=== PATIENT | female | born 1945 | race Caucasian/White ===

== ENCOUNTER 2017-08-14 19:14 | Inpatient (IN) | payer MEDICARE, BC ==
[2017-08-14] MEDS ORDERED: Sodium Chloride 0.9% 10 ML Syringe FLUSH PRN (19:29)
[2017-08-14] MEDS ORDERED: methylPREDNISolone Sodium Succinate 125 MG/2 ML SDV IV ONE (19:30)
[2017-08-14] MEDS ORDERED: Albuterol/Ipratropium 3.0-0.5 MG/3 ML Neb Soln NEB ONE (19:30)
[2017-08-14 20:34] LABS: CHLORIDE,CL 100 mmol/L (98-107); SODIUM,NA 139 mmol/L (136-145)
[2017-08-14] MEDS ORDERED: Iopamidol 612 MG/ML 100 ML Bottle IVPUSH ONE (20:55)
[2017-08-14] MEDS ORDERED: Albuterol/Ipratropium 3.0-0.5 MG/3 ML Neb Soln NEB SCH (23:00)
[2017-08-14] MEDS ORDERED: cloNIDine 0.1 MG Tab PO SCH (23:02)
[2017-08-14] MEDS ORDERED: RAMIPRIL 10 MG PO SCH (23:03)
[2017-08-14] MEDS ORDERED: Non-Formulary Medication 1 Each (Saxagliptin Hcl [Onglyza] 5 MG) PO SCH (23:03)
[2017-08-14] MEDS ORDERED: NIFEdipine 30 MG Tab.ER PO SCH (23:05)
--- NOTE | 2017-08-14 23:08 | PCM.HP ---
H&P History of Present Illness - General Date of Service: 08/14/17 Admit Problem/Dx: Admission Diagnosis/Problem Admission Diagnosis/Problem COPD with acute lower respiratory infection Source of Information: Patient History Limitations: Reports: No Limitations - History of Present Illness Initial Comments - Free Text/Narative: Mrs. Jacobs is a 72 yo female who presented to the ER for evaluation of chest pain x 3 days. Pain described as a pressure sensation on the left chest. No radiation. No specific exacerbating or alleviating factors. Has been happening intermittently on a random basis but has been more persistent and noticeable throughout the day today. She has chronic shortness of breath and cough related to her COPD but denies any increase in either recently. No fever or chills. Has had pneumonia in the past and these symptoms are not really similar to that. She has been fatigued but otherwise does not feel ill. Has not been using her albuterol inhaler more recently; no specific home cares tried. She denies any nausea or vomiting. No other acute symptoms. She is already feeling much better since she received steroids and a neb treatment in the ER and denies any current chest pain. Left chest Pain Score (Numeric/FACES): 5 - Related Data Allergies/Adverse Reactions: Allergies Allergy/AdvReac Type Severity Reaction Status Date / Time glipizide Allergy Itching Verified 06/17/16 08:50 Home Medications: Home Meds Albuterol [Proventil HFA] 2 puff INH Q4H PRN 05/05/16 [History] Htazx-9-Rkuqsmmxxt Inhibitor [Aralast Skin Care Consultant] 8,000 mg IV Q14D 05/05/16 [History] Hydrochlorothiazide 25 g PO DAILY 05/05/16 [History] NIFEdipine [Adalat cc] 60 mg PO DAILY 05/05/16 [History] Ramipril [Altace] 10 mg PO DAILY 05/05/16 [History] Saxagliptin HCl [Onglyza] 5 mg PO DAILY 05/05/16 [History] Simvastatin [Zocor] 10 mg PO BEDTIME 05/05/16 [History] Tiotropium [Spiriva HandiHaler] 1 cap PO DAILY 05/05/16 [History] cloNIDine HCl [Catapres] 0.2 mg PO DAILY 05/05/16 [History] metFORMIN [Glucophage] 850 mg PO BID 05/05/16 [History] Albuterol [Proventil Neb Soln] 2.5 mg INH BID 08/14/17 [History] Knehb-4-Asaccevrsp Inhibitor [Glassia] 1 gm IV Q7D 08/14/17 [History] Fluticasone/Vilanterol [Breo Ellipta 200-25 Mcg INH] 1 each IH DAILY 08/14/17 [ History] Past Medical History HEENT History: Reports: Other (See Below) Other HEENT History: conjunctival hemorrhage Cardiovascular History: Reports: High Cholesterol, Hypertension, SOB on Exertion , Other (See Below) Other Cardiovascular History: varicose veins Respiratory History: Reports: COPD, Other (See Below) Other Respiratory History: alpha-1 anti-trypsin deficiency, panlobular emphysema , pulmonary nodules, bronchiectasis Gastrointestinal History: Reports: Diverticulosis 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 herpes zoster. compression fx 12th thoracic vertebra Endocrine/Metabolic History: Reports: Diabetes, Type II, Osteoporosis Hematologic History: Reports: None Immunologic History: Reports: None Oncologic (Cancer) History: Reports: None Dermatologic History: Reports: None - Infectious Disease History Infectious Disease History: Reports: None - Past Surgical History HEENT Surgical History: Reports: Cataract Surgery, Other (See Below) Other HEENT Surgeries/Procedures: bilateral blepharoplasty Social & Family History - Family History Cardiac: Reports: Heart Failure Neurological: Reports: CVA - Tobacco Use Smoking Status *Q: Never Smoker Second Hand Smoke Exposure: No - Caffeine Use Caffeine Use: Reports: Coffee - Alcohol Use Alcohol Use History: No Alcohol Use in Last Twelve Months: Yes Alcohol Use Frequency: Rarely - Recreational Drug Use Recreational Drug Use: No - Living Situation & Occupation Living situation: Reports: , with Significant Other 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[employer]) H&P Review of Systems - Review of Systems: Review Of Systems: See Below General: Reports: No Symptoms HEENT: Reports: No Symptoms Pulmonary: Reports: Shortness of Breath, Cough Cardiovascular: Reports: Chest Pain Gastrointestinal: Reports: No Symptoms Genitourinary: Reports: No Symptoms Musculoskeletal: Reports: No Symptoms Skin: Reports: No Symptoms Neurological: Reports: No Symptoms Exam - Exam Exam: See Below - Vital Signs Vital Signs: Last Vital Signs Temp 36.9 C 08/14/17 22:48 Pulse 96 08/14/17 22:48 Resp 20 08/14/17 22:48 BP 153/83 H 08/14/17 22:48 Pulse Ox 90 L 08/14/17 22:48 Weight: 68.039 kg - Exam General: Alert, Cooperative HEENT: Conjunctiva Clear, Mucosa Moist & Bloomer, Posterior Pharynx Clear, Pupils Equal, Pupils Reactive Neck: Supple, Trachea Midline. No: Lymphadenopathy, Thyromegaly Lungs: Normal Respiratory Effort, Crackles (R>L lower lobes, which patient states is usual for her) Cardiovascular: Regular Rate, Regular Rhythm, Normal S1, Normal S2 GI/Abdominal Exam: Normal Bowel Sounds, Soft, Non-Tender, No Organomegaly, No Distention, No Mass Extremities: Non-Tender, No Pedal Edema, Normal Capillary Refill Peripheral Pulses: 2+: Radial (L), Radial (R) Skin: Warm, Dry, Intact - Patient Data Lab Results Last 24 hrs: Laboratory Results - last 24 hr 08/14/17 08/14/17 08/14/17 Range/Units 19:35 19:35 19:35 WBC 11.2 H (4.0-10.0) x10^3/uL RBC 4.64 (4.00-5.50) x10^6/uL Hgb 14.1 (12.0-16.0) g/dL Hct 42.3 (33.0-47.0) % MCV 91.2 (78.0-93.0) fL MCH 30.4 (26.0-32.0) pg MCHC 33.3 (32.0-36.0) g/dL RDW Coeff of Jose 13.2 (10.0-15.0) % Plt Count 281 (130-400) x10^3/uL Neut % (Auto) 72.1 (50.0-80.0) % Lymph % (Auto) 15.4 L (25.0-50.0) % [place] % (Auto) 10.5 (2.0-11.0) % Eos % (Auto) 1.8 (0.0-4.0) % Baso % (Auto) 0.2 (0.2-1.2) % PT 10.4 (9.6-11.4) SEC INR 1.0 L (2.0-3.5) D-Dimer, Quantitative 0.91 H (<=0.58) mg/LFEU Sodium 139 (136-145) mmol/L Potassium 3.8 (3.5-5.1) mmol/L Chloride 100 (98-107) mmol/L Carbon Dioxide 29 (21-32) mmol/L Anion Gap 13.8 (10-20) mmol/L BUN 24 H (7-18) mg/dL Creatinine 0.9 (0.55-1.02) mg/dL Est Cr Clr Drug Dosing 49.51 mL/min Estimated GFR (MDRD) > 60 Glucose 107 H (74-106) mg/dL Lactic Acid (0.4-2.0) mmol/L Calcium 9.4 (8.5-10.1) mg/dL Corrected Calcium 9.96 (8.5-10.1) mg/dL Phosphorus 3.8 (2.6-4.7) mg/dL Magnesium 1.5 L (1.8-2.4) mg/dL Total Bilirubin 0.5 (0.2-1.0) mg/dL AST 13 L (15-37) U/L ALT 18 (14-59) U/L Alkaline Phosphatase 108 (46-116) U/L Troponin I < 0.017 (<=0.056) ng/mL C-Reactive Protein 1.1 H (<=0.9) mg/dL NT-Pro-B Natriuret Pep 85 (<=125) pg/mL Total Protein 7.8 (6.4-8.2) g/dL Albumin 3.3 L (3.4-5.0) g/dL Globulin 4.5 Albumin/Globulin Ratio 0.73 /16/18 Range/Units 19:35 WBC (4.0-10.0) x10^3/uL RBC (4.00-5.50) x10^6/uL Hgb (12.0-16.0) g/dL Hct (33.0-47.0) % MCV (78.0-93.0) fL MCH (26.0-32.0) pg MCHC (32.0-36.0) g/dL RDW Coeff of Jose (10.0-15.0) % Plt Count (130-400) x10^3/uL Neut % (Auto) (50.0-80.0) % Lymph % (Auto) (25.0-50.0) % [place] % (Auto) (2.0-11.0) % Eos % (Auto) (0.0-4.0) % Baso % (Auto) (0.2-1.2) % PT (9.6-11.4) SEC INR (2.0-3.5) D-Dimer, Quantitative (<=0.58) mg/LFEU Sodium (136-145) mmol/L Potassium (3.5-5.1) mmol/L Chloride (98-107) mmol/L Carbon Dioxide (21-32) mmol/L Anion Gap (10-20) mmol/L BUN (7-18) mg/dL Creatinine (0.55-1.02) mg/dL Est Cr Clr Drug Dosing mL/min Estimated GFR (MDRD) Glucose (74-106) mg/dL Lactic Acid 0.8 (0.4-2.0) mmol/L Calcium (8.5-10.1) mg/dL Corrected Calcium (8.5-10.1) mg/dL Phosphorus (2.6-4.7) mg/dL Magnesium (1.8-2.4) mg/dL Total Bilirubin (0.2-1.0) mg/dL AST (15-37) U/L ALT (14-59) U/L Alkaline Phosphatase (46-116) U/L Troponin I (<=0.056) ng/mL C-Reactive Protein (<=0.9) mg/dL NT-Pro-B Natriuret Pep (<=125) pg/mL Total Protein (6.4-8.2) g/dL Albumin (3.4-5.0) g/dL Globulin Albumin/Globulin Ratio Result Diagrams: 08/14/17 19:35 08/14/17 19:35 Isai Results Last 24 hrs: Microbiology 08/14/17 20:33 Anaerobic Blood Culture - Final Blood - Venous - Lab Draw 08/14/17 20:24 Anaerobic Blood Culture - Final Blood - Venous - Problem List (1) COPD exacerbation SNOMED Code(s): 531609097 ICD Code: J44.1 - CHRONIC OBSTRUCTIVE PULMONARY DISEASE W (ACUTE) EXACERBATION Status: Acute Current Visit: Yes Problem Details: - Symptoms are most likely secondary to COPD exacerbation given history of severe COPD and improvement with nebs and steroids. - Troponin was negative and EKG unremarkable, effectively ruling out coronary ischemia after 3 days of symptoms. Patient does not have any history to suggest CHF. D-dimer high but PE ruled out with CTA. No anemia nor significant electrolyte abnormalities. - Question of pneumonia on CT scan but patient's history is not consistent with this. Discussed holding off on antibiotics and seeing how she does overnight with repeat labs in the morning; patient in agreement with this. - Will start prednisone burst in the am; parenteral steroids given in the ER. - DuoNebs scheduled q4 hours until 24 hours from initial steroid dosing, will then transition to PRN. - If WBC up or lung exam changed in the am, will consider starting antibiotics. (2) Qqjpv-3-zvcvgwipyej deficiency SNOMED Code(s): 89636490 ICD Code: E88.01 - [id number] DEFICIENCY Status: Chronic Current Visit: Yes Problem Details: - This is the cause for her COPD. - She gets her infusions on Mondays. Anticipate this can be done still later in the day on Wednesday or deferred until Wednesday. (3) Respiratory failure with hypoxia SNOMED Code(s): 34430683429348734 ICD Code: J96.91 - RESPIRATORY FAILURE, UNSPECIFIED WITH HYPOXIA Status: Acute Current Visit: Yes Problem Details: - Patient requiring 4L to maintain saturations instead of her usual 2L. - Secondary to above. Same differential considered as described above. - Prednisone and DuoNebs. - Will wean oxygen as able. Qualifiers: Chronicity: acute on chronic Qualified Code(s): J96.21 - Acute and chronic respiratory failure with hypoxia (4) Hypertension SNOMED Code(s): 39264360 ICD Code: I10 - ESSENTIAL (PRIMARY) HYPERTENSION Status: Chronic Current Visit: Yes Problem Details: - BP up in the ER but improved upon arrival to the floor. - Continue home medications per usual schedule. Qualifiers: Hypertension type: essential hypertension Qualified Code(s): I10 - Essential (primary) hypertension (5) Hyperlipidemia SNOMED Code(s): 71597143 ICD Code: E78.5 - HYPERLIPIDEMIA, UNSPECIFIED Status: Chronic Current Visit: Yes Problem Details: - Continue simvastatin. Qualifiers: Hyperlipidemia type: unspecified Qualified Code(s): E78.5 - Hyperlipidemia , unspecified (6) Diabetes SNOMED Code(s): 66181051 ICD Code: E11.9 - TYPE 2 DIABETES MELLITUS WITHOUT COMPLICATIONS Status: Chronic Current Visit: Yes Problem Details: - Hold metformin as she got contrast this pm. - Will continue saxagliptin if available. Otherwise, will hold this as well. - QID glucoses. Will assess need for insulin to replace held home medications. Qualifiers: Diabetes mellitus type: type 2 Diabetes mellitus mcfp insulin use: without mcfp use Diabetes mellitus complication status: without complication Qualified Code(s): E11.9 - Type 2 diabetes mellitus without complications Problem List Initiated/Reviewed/Updated: Yes Orders Last 24hrs: Active Orders 24 hr Category Date Time Status Patient Status [ADT] Routine ADT 08/14/17 22:08 Active EKG Documentation Completion [RC] STAT Care 08/14/17 19:29 Active Notify Provider Vital Signs [RC] ASDIRECTED Care 08/14/17 22:57 Ordered Oxygen Therapy [RC] PRN Care 08/14/17 19:30 Active Oxygen Therapy [RC] PRN Care 08/14/17 22:56 Ordered RT Aerosol Therapy [RC] ASDIRECTED Care 08/14/17 19:31 Active RT Aerosol Therapy [RC] ASDIRECTED Care 08/14/17 23:01 Ordered Up With Assistance [RC] ASDIRECTED Care 08/14/17 22:56 Ordered VTE/DVT Education [RC] PER UNIT ROUTINE Care 08/14/17 22:56 Ordered Vital Signs [RC] Q4H Care 08/14/17 22:56 Ordered Regular Diet [DIET] Diet 08/14/17 Breakfast Ordered Chest 2V [CR] Stat Exams 08/14/17 19:29 Taken PE Chest [Ang Chest] [CT] Stat Exams 08/14/17 20:39 Taken BASIC METABOLIC PANEL,BMP [CHEM] AM Lab 08/15/17 05:11 Ordered C-REACTIVE PROTEIN [CHEM] AM Lab 08/15/17 05:11 Ordered CBC WITH AUTO DIFF [HEME] AM Lab 08/15/17 05:11 Ordered CULTURE BLOOD [BC] Stat Lab 08/14/17 20:24 Results CULTURE BLOOD [] Stat Lab 08/14/17 20:33 Results Albuterol/Ipratropium [DuoNeb 3.0-0.5 MG/3 ML] Med 08/14/17 23:15 Ordered 3 ml NEB Q4H Enoxaparin [Lovenox] Med 08/15/17 08:00 Ordered 40 mg SUBCUT DAILY Hydrochlorothiazide Med 08/15/17 08:00 Ordered 25,000 mg PO DAILY NIFEdipine [Adalat cc] Med 08/14/17 23:05 Ordered 60 mg PO BEDTIME Ramipril [Altace] Med 08/14/17 23:03 Ordered 10 mg PO BEDTIME Saxagliptin HCl [Onglyza] Med 08/14/17 23:03 Ordered 5 mg PO BEDTIME Simvastatin [Zocor] Med 08/15/17 20:00 Ordered 10 mg PO BEDTIME Sodium Chloride 0.9% [Saline Flush] Med 08/14/17 19:29 Active 10 ml FLUSH ASDIRECTED PRN cloNIDine HCl [Catapres] Med 08/14/17 23:02 Ordered 0.2 mg PO BEDTIME predniSONE Med 08/15/17 08:00 Ordered 40 mg PO WITHBREAKFAST Blood Culture x2 Reflex Set [OM.PC] Stat Oth 08/14/17 19:29 Ordered Peripheral IV Insertion Adult [OM.PC] Routine Oth 08/14/17 19:29 Ordered Resuscitation Status Routine Resus Stat 08/14/17 22:56 Ordered Medication Orders Albuterol/Ipratropium (Duoneb 3.0-0.5 Mg/3 Ml) 3 ml NEB Q4H GALINDO Enoxaparin Sodium (Lovenox) 40 mg SUBCUT DAILY GALINDO Hydrochlorothiazide (Hydrochlorothiazide) 25,000 mg PO DAILY GALINDO Non-Formulary Medication (Clonidine Hcl [Catapres]) 0.2 mg PO BEDTIME GALINDO Non-Formulary Medication (Nifedipine [Adalat Cc]) 60 mg PO BEDTIME GALINDO Non-Formulary Medication (Ramipril [Altace]) 10 mg PO BEDTIME GALINDO Non-Formulary Medication (Saxagliptin Hcl [Onglyza]) 5 mg PO BEDTIME GALINDO Prednisone (Prednisone) 40 mg PO WITHBREAKFAST GALINDO Simvastatin (Zocor) 10 mg PO BEDTIME GALINDO Sodium Chloride (Saline Flush) 10 ml FLUSH ASDIRECTED PRN PRN Reason: Keep Vein Open Last Admin: 08/14/17 19:44 Dose: 10 ml Assessment/Plan Comment:: 72 yo female admitted with acute on chronic respiratory failure secondary to COPD exacerbation after presenting with chest pain. See details under problems above. Will start prednisone burst in the am and do DuoNebs scheduled q4 hours for now. Holding off on antibiotics and will reassess in the am. She will get LR @ 100 cc/hr x [address] contrast through. Home medications continued except for metformin and inhalers (replaced with nebs or systemic therapy). She meets acute criteria due to the level of monitoring and intervention but also as it is presumed she will remain admitted for 2 midnights. She wishes to be full code. She will be on lovenox for VTE prophylaxis.
[2017-08-14] MEDS ORDERED: Lactated Ringers 500 ML IV SCH (23:15)
[2017-08-14] MEDS ORDERED: Lisinopril 20 MG Tab PO SCH (23:15)
[2017-08-14] MEDS: Albuterol/Ipratropium 3.0-0.5 MG/3 ML Neb Soln NEB SCH (23:33)
[2017-08-14] MEDS ORDERED: Simvastatin 10 MG Tab PO SCH (23:45)
[2017-08-15] MEDS: Albuterol/Ipratropium 3.0-0.5 MG/3 ML Neb Soln NEB SCH ×3 (03:06→11:21)
[2017-08-15] MEDS ORDERED: Tiotropium Inhaler 18 MCG Inhalation Powder Cap Kit of 5 INH SCH (08:00)
[2017-08-15] MEDS ORDERED: Enoxaparin 40 MG/0.4 ML Syringe SUBCUT SCH (08:00)
[2017-08-15] MEDS ORDERED: predniSONE 20 MG Tab PO SCH (08:00)
[2017-08-15] MEDS ORDERED: Hydrochlorothiazide 25 MG Tab PO SCH ×2 (08:00)
--- NOTE | 2017-08-15 09:33 | PCM.PN ---
- General Info Date of Service: 08/15/17 - Patient Data Vitals - Most Recent: Last Vital Signs Temp 36.1 C 08/15/17 06:00 Pulse 77 08/15/17 06:00 Resp 20 08/15/17 06:00 BP 109/55 L 08/15/17 06:00 Pulse Ox 96 08/15/17 07:26 Weight - Most Recent: 68.039 kg I&O - Last 24 Hours: Intake & Output 08/14/17 08/15/17 08/15/17 22:59 06:59 14:59 Intake Total 280 600 Output Total 300 1000 Balance -20 -400 Lab Results Last 24 Hours: Laboratory Results - last 24 hr 08/14/17 08/14/17 08/14/17 Range/Units 19:35 19:35 19:35 WBC 11.2 H (4.0-10.0) x10^3/uL RBC 4.64 (4.00-5.50) x10^6/uL Hgb 14.1 (12.0-16.0) g/dL Hct 42.3 (33.0-47.0) % MCV 91.2 (78.0-93.0) fL MCH 30.4 (26.0-32.0) pg MCHC 33.3 (32.0-36.0) g/dL RDW Coeff of Jose 13.2 (10.0-15.0) % Plt Count 281 (130-400) x10^3/uL Neut % (Auto) 72.1 (50.0-80.0) % Lymph % (Auto) 15.4 L (25.0-50.0) % Mathews % (Auto) 10.5 (2.0-11.0) % Eos % (Auto) 1.8 (0.0-4.0) % Baso % (Auto) 0.2 (0.2-1.2) % PT 10.4 (9.6-11.4) SEC INR 1.0 L (2.0-3.5) D-Dimer, Quantitative 0.91 H (<=0.58) mg/LFEU Sodium 139 (136-145) mmol/L Potassium 3.8 (3.5-5.1) mmol/L Chloride 100 (98-107) mmol/L Carbon Dioxide 29 (21-32) mmol/L Anion Gap 13.8 (10-20) mmol/L BUN 24 H (7-18) mg/dL Creatinine 0.9 (0.55-1.02) mg/dL Est Cr Clr Drug Dosing 49.51 mL/min Estimated GFR (MDRD) > 60 Glucose 107 H (74-106) mg/dL POC Glucose (74-106) mg/dL Lactic Acid (0.4-2.0) mmol/L Calcium 9.4 (8.5-10.1) mg/dL Corrected Calcium 9.96 (8.5-10.1) mg/dL Phosphorus 3.8 (2.6-4.7) mg/dL Magnesium 1.5 L (1.8-2.4) mg/dL Total Bilirubin 0.5 (0.2-1.0) mg/dL AST 13 L (15-37) U/L ALT 18 (14-59) U/L Alkaline Phosphatase 108 (46-116) U/L Troponin I < 0.017 (<=0.056) ng/mL C-Reactive Protein 1.1 H (<=0.9) mg/dL NT-Pro-B Natriuret Pep 85 (<=125) pg/mL Total Protein 7.8 (6.4-8.2) g/dL Albumin 3.3 L (3.4-5.0) g/dL Globulin 4.5 Albumin/Globulin Ratio 0.73 08/14/1718 18 Range/Units 19:35 06:03 08:52 WBC 9.1 (4.0-10.0) x10^3/uL RBC 4.33 (4.00-5.50) x10^6/uL Hgb 13.2 (12.0-16.0) g/dL Hct 39.6 (33.0-47.0) % MCV 91.5 (78.0-93.0) fL MCH 30.5 (26.0-32.0) pg MCHC 33.3 (32.0-36.0) g/dL RDW Coeff of Jose 13.1 (10.0-15.0) % Plt Count 261 (130-400) x10^3/uL Neut % (Auto) 86.0 H (50.0-80.0) % Lymph % (Auto) 6.9 L (25.0-50.0) % Mathews % (Auto) 7.0 (2.0-11.0) % Eos % (Auto) 0.0 (0.0-4.0) % Baso % (Auto) 0.1 L (0.2-1.2) % PT (9.6-11.4) SEC INR (2.0-3.5) D-Dimer, Quantitative (<=0.58) mg/LFEU Sodium (136-145) mmol/L Potassium (3.5-5.1) mmol/L Chloride (98-107) mmol/L Carbon Dioxide (21-32) mmol/L Anion Gap (10-20) mmol/L BUN (7-18) mg/dL Creatinine (0.55-1.02) mg/dL Est Cr Clr Drug Dosing mL/min Estimated GFR (MDRD) Glucose (74-106) mg/dL POC Glucose 183 H (74-106) mg/dL Lactic Acid 0.8 (0.4-2.0) mmol/L Calcium (8.5-10.1) mg/dL Corrected Calcium (8.5-10.1) mg/dL Phosphorus (2.6-4.7) mg/dL Magnesium (1.8-2.4) mg/dL Total Bilirubin (0.2-1.0) mg/dL AST (15-37) U/L ALT (14-59) U/L Alkaline Phosphatase (46-116) U/L Troponin I (<=0.056) ng/mL C-Reactive Protein (<=0.9) mg/dL NT-Pro-B Natriuret Pep (<=125) pg/mL Total Protein (6.4-8.2) g/dL Albumin (3.4-5.0) g/dL Globulin Albumin/Globulin Ratio 08/15/17 Range/Units 08:52 WBC (4.0-10.0) x10^3/uL RBC (4.00-5.50) x10^6/uL Hgb (12.0-16.0) g/dL Hct (33.0-47.0) % MCV (78.0-93.0) fL MCH (26.0-32.0) pg MCHC (32.0-36.0) g/dL RDW Coeff of Jose (10.0-15.0) % Plt Count (130-400) x10^3/uL Neut % (Auto) (50.0-80.0) % Lymph % (Auto) (25.0-50.0) % Mathews % (Auto) (2.0-11.0) % Eos % (Auto) (0.0-4.0) % Baso % (Auto) (0.2-1.2) % PT (9.6-11.4) SEC INR (2.0-3.5) D-Dimer, Quantitative (<=0.58) mg/LFEU Sodium 136 (136-145) mmol/L Potassium 4.1 (3.5-5.1) mmol/L Chloride 99 (98-107) mmol/L Carbon Dioxide 26 (21-32) mmol/L Anion Gap 15.1 (10-20) mmol/L BUN 23 H (7-18) mg/dL Creatinine 1.2 H (0.55-1.02) mg/dL Est Cr Clr Drug Dosing 37.13 mL/min Estimated GFR (MDRD) 44 Glucose 303 H (74-106) mg/dL POC Glucose (74-106) mg/dL Lactic Acid (0.4-2.0) mmol/L Calcium 9.0 (8.5-10.1) mg/dL Corrected Calcium (8.5-10.1) mg/dL Phosphorus (2.6-4.7) mg/dL Magnesium (1.8-2.4) mg/dL Total Bilirubin (0.2-1.0) mg/dL AST (15-37) U/L ALT (14-59) U/L Alkaline Phosphatase (46-116) U/L Troponin I (<=0.056) ng/mL C-Reactive Protein 0.9 (<=0.9) mg/dL NT-Pro-B Natriuret Pep (<=125) pg/mL Total Protein (6.4-8.2) g/dL Albumin (3.4-5.0) g/dL Globulin Albumin/Globulin Ratio Isai Results Last 24 Hours: Microbiology 08/14/17 20:33 Anaerobic Blood Culture - Final Blood - Venous - Lab Draw 08/14/17 20:24 Anaerobic Blood Culture - Final Blood - Venous Med Orders - Current: Current Medications Albuterol/Ipratropium (Duoneb 3.0-0.5 Mg/3 Ml) 3 ml NEB Q4HRRT [facility] Last Admin: 08/15/17 07:21 Dose: 3 ml Clonidine HCl (Catapres) 0.2 mg PO BEDTIME [facility] Last Admin: 08/14/17 23:34 Dose: 0.2 mg Enoxaparin Sodium (Lovenox) 40 mg SUBCUT DAILY [facility] Last Admin: 08/15/17 08:11 Dose: 40 mg Hydrochlorothiazide (Hydrochlorothiazide) 25 mg PO DAILY [facility] Last Admin: 08/15/17 08:11 Dose: 25 mg Lisinopril (Prinivil) 20 mg PO BEDTIME [facility] Last Admin: 08/14/17 23:34 Dose: 20 mg Nifedipine (Procardia Xl) 60 mg PO BEDTIME [facility] Last Admin: 08/14/17 23:41 Dose: 60 mg Prednisone (Prednisone) 40 mg PO WITHBREAKFAST [facility] Last Admin: 08/15/17 08:11 Dose: 40 mg Simvastatin (Zocor) 10 mg PO BEDTIME [facility] Last Admin: 08/15/17 03:06 Dose: 10 mg Sitagliptin Phosphate (Januvia) 100 mg PO BEDTIME [facility] Last Admin: 08/14/17 23:34 Dose: 100 mg Sodium Chloride (Saline Flush) 10 ml FLUSH ASDIRECTED PRN PRN Reason: Keep Vein Open Last Admin: 08/14/17 19:44 Dose: 10 ml Discontinued Medications Albuterol/Ipratropium (Duoneb 3.0-0.5 Mg/3 Ml) 3 ml NEB ONETIME ONE Stop: 08/14/17 19:31 Last Admin: 08/14/17 19:44 Dose: 3 ml Albuterol/Ipratropium (Duoneb 3.0-0.5 Mg/3 Ml) 3 ml NEB Q4HRRT [facility] Last Admin: 08/15/17 02:08 Dose: Not Given Hydrochlorothiazide (Hydrochlorothiazide) 25,000 mg PO DAILY [facility] Lactated Ringer's (Ringers, Lactated) 500 mls @ 100 mls/hr IV ASDIRECTED [facility] Stop: 06/17/18 04:16 Last Admin: 08/14/17 23:24 Dose: 100 mls/hr Iopamidol (Isovue-300 (61%)) 100 ml IVPUSH ONETIME ONE Stop: 08/14/17 20:56 Last Admin: 08/14/17 21:06 Dose: 100 ml Methylprednisolone Sodium Succinate (Solu-Medrol) 125 mg IV ONETIME ONE Stop: 08/14/17 19:31 Last Admin: 08/14/17 19:44 Dose: 125 mg Simvastatin (Zocor) 10 mg PO BEDTIME [facility] Tiotropium [place] (Spiriva Handihaler) mcg INH DAILY [facility] - Problem List & Annotations (1) COPD exacerbation SNOMED Code(s): 688345259 Code(s): J44.1 - CHRONIC OBSTRUCTIVE PULMONARY DISEASE W (ACUTE) EXACERBATION Status: Acute Current Visit: Yes Annotation/Comment:: - Symptoms are most likely secondary to COPD exacerbation given history of severe COPD and improvement with nebs and steroids. - Troponin was negative and EKG unremarkable, effectively ruling out coronary ischemia after 3 days of symptoms. Patient does not have any history to suggest CHF. D-dimer high but PE ruled out with CTA. No anemia nor significant electrolyte abnormalities. - Question of pneumonia on CT scan but patient's history is not consistent with this. Discussed holding off on antibiotics and seeing how she does overnight with repeat labs in the morning; patient in agreement with this. - Will start prednisone burst in the am; parenteral steroids given in the ER. - DuoNebs scheduled q4 hours until 24 hours from initial steroid dosing, will then transition to PRN. - If WBC up or lung exam changed in the am, will consider starting antibiotics. (2) Mgyjv-[id number] deficiency SNOMED Code(s): 58364529 Code(s): E88.01 - [id number] DEFICIENCY Status: Chronic Current Visit: Yes Annotation/Comment:: - This is the cause for her COPD. - She gets her infusions on Mondays. Anticipate this can be done still later in the day on Wednesday or deferred until Wednesday. (3) Respiratory failure with hypoxia SNOMED Code(s): 78788882641087241 Code(s): J96.91 - RESPIRATORY FAILURE, UNSPECIFIED WITH HYPOXIA Status: Acute Current Visit: Yes Qualifiers: Chronicity: acute on chronic Qualified Code(s): J96.21 - Acute and chronic respiratory failure with hypoxia Annotation/Comment:: - Patient requiring 4L to maintain saturations instead of her usual 2L. - Secondary to above. Same differential considered as described above. - Prednisone and DuoNebs. - Will wean oxygen as able. (4) Hypertension SNOMED Code(s): 24858293 Code(s): I10 - ESSENTIAL (PRIMARY) HYPERTENSION Status: Chronic Current Visit: Yes Qualifiers: Hypertension type: essential hypertension Qualified Code(s): I10 - Essential (primary) hypertension Annotation/Comment:: - BP up in the ER but improved upon arrival to the floor. - Continue home medications per usual schedule. (5) Hyperlipidemia SNOMED Code(s): 09603366 Code(s): E78.5 - HYPERLIPIDEMIA, UNSPECIFIED Status: Chronic Current Visit: Yes Qualifiers: Hyperlipidemia type: unspecified Qualified Code(s): E78.5 - Hyperlipidemia , unspecified Annotation/Comment:: - Continue simvastatin. (6) Diabetes SNOMED Code(s): 90831250 Code(s): E11.9 - TYPE 2 DIABETES MELLITUS WITHOUT COMPLICATIONS Status: Chronic Current Visit: Yes Qualifiers: Diabetes mellitus type: type 2 Diabetes mellitus moth exterminator insulin use: without fdc use Diabetes mellitus complication status: without complication Qualified Code(s): E11.9 - Type 2 diabetes mellitus without complications Annotation/Comment:: - Hold metformin as she got contrast this pm. - Will continue saxagliptin if available. Otherwise, will hold this as well. - QID glucoses. Will assess need for insulin to replace held home medications. - My Orders Last 24 Hours: My Active Orders 08/14/17 22:56 Oxygen Therapy [RC] 02,06,10,14,18,22 Up With Assistance [RC] 08,20 Vital Signs [RC] 02,06,10,14,18,22 Resuscitation Status Routine 08/14/17 22:57 Notify Provider Vital Signs [RC] 02,06,10,14,18,22 08/14/17 23:01 RT Aerosol Therapy [RC] .PRN 08/14/17 23:02 cloNIDine [Catapres] 0.2 mg PO BEDTIME 08/14/17 23:05 NIFEdipine [Procardia XL] 60 mg PO BEDTIME 08/14/17 23:08 Blood Glucose Check, Bedside [RC] 07,11,17,20 08/14/17 23:15 Lisinopril [Prinivil] 20 mg PO BEDTIME 08/14/17 23:30 Albuterol/Ipratropium [DuoNeb 3.0-0.5 MG/3 ML] 3 ml NEB Q4HRRT SitaGLIPtin [Januvia] 100 mg PO BEDTIME 08/14/17 23:45 Simvastatin [Zocor] 10 mg PO BEDTIME 08/15/17 08:00 Enoxaparin [Lovenox] 40 mg SUBCUT DAILY Hydrochlorothiazide 25 mg PO DAILY predniSONE 40 mg PO WITHBREAKFAST - Plan Plan:: 72 yo female admitted with acute on chronic respiratory failure secondary to COPD exacerbation after presenting with chest pain. See details under problems above. Will start prednisone burst in the am and do DuoNebs scheduled q4 hours for now. Holding off on antibiotics and will reassess in the am. She will get LR @ 100 cc/hr x [address] contrast through. Home medications continued except for metformin and inhalers (replaced with nebs or systemic therapy). She meets acute criteria due to the level of monitoring and intervention but also as it is presumed she will remain admitted for 2 midnights. She wishes to be full code. She will be on lovenox for VTE prophylaxis.
--- NOTE | 2017-08-15 09:40 | PCM.DCSUM1 ---
Discharge Summary - Hospital Course Brief History: Mrs. Jacobs is a 72 yo female admitted with acute on chronic hypoxic respiratory failure secondary to COPD exacerbation after presenting to the ER with chest pain. Diagnosis: Stroke: No - Discharge Data Discharge Date: 08/15/17 Discharge Disposition: Home, Self-Care 01 Condition: Good - Discharge Diagnosis/Problem(s) (1) COPD exacerbation SNOMED Code(s): 239829898 ICD Code: J44.1 - CHRONIC OBSTRUCTIVE PULMONARY DISEASE W (ACUTE) EXACERBATION Status: Acute Current Visit: Yes Problem Details: Chest pain felt to be secondary to COPD exacerbation given history of severe COPD and improvement with nebs and steroids. Evaluation in the ER for other causes (ACS, CHF, d-dimer, anemia, and electrolyte disturbance) was negative. Her chest pain had resolved by the time she got up to the floor and remained resolved overnight. She is feeling well this morning and has been weaned back to her usual oxygen dosing. She was given parenteral steroids in the ER and then started on prednisone. DuoNebs have also been scheduled overnight. She was not given antibiotics as she had 0/3 cardinal symptoms for COPD exacerbation and history was not consistent with pneumonia either. WBC and CRP both normal this am so she also will not be discharged on antibiotics. Did offer to keep her 1 more night mainly related to the increase in creatinine but she declined and prefers to be dismissed home with close outpatient follow-up. (2) Yvyvx-8-fvqvntmxyxu deficiency SNOMED Code(s): 42614655 ICD Code: E88.01 - [id number] DEFICIENCY Status: Chronic Current Visit: Yes Problem Details: This is the cause for her COPD. She gets her infusions on Mondays. She will be able to get this as usual tomorrow. (3) Respiratory failure with hypoxia SNOMED Code(s): 32668580212449474 ICD Code: J96.91 - RESPIRATORY FAILURE, UNSPECIFIED WITH HYPOXIA Status: Acute Current Visit: Yes Problem Details: Patient initially requiring 4L to maintain saturations but has been weaned to her usual 2L. There was an issue yesterday with the batteries for her oxygen and that is now resolved today. Otherwise, plan as above. Qualifiers: Chronicity: acute on chronic Qualified Code(s): J96.21 - Acute and chronic respiratory failure with hypoxia (4) Hypertension SNOMED Code(s): 86126317 ICD Code: I10 - ESSENTIAL (PRIMARY) HYPERTENSION Status: Chronic Current Visit: Yes Problem Details: BP up in the ER but improved upon arrival to the floor. Has been acceptable since admission to the floor. Home medications continued per usual schedule. Qualifiers: Hypertension type: essential hypertension Qualified Code(s): I10 - Essential (primary) hypertension (5) Hyperlipidemia SNOMED Code(s): 52653388 ICD Code: E78.5 - HYPERLIPIDEMIA, UNSPECIFIED Status: Chronic Current Visit: Yes Problem Details: Simvastatin continued. Qualifiers: Hyperlipidemia type: unspecified Qualified Code(s): E78.5 - Hyperlipidemia , unspecified (6) Diabetes SNOMED Code(s): 68978961 ICD Code: E11.9 - TYPE 2 DIABETES MELLITUS WITHOUT COMPLICATIONS Status: Chronic Current Visit: Yes Problem Details: Metformin was held as she got IV contrast in the ER. Her saxagliptin was subbed per formulary. Glucoses elevated but acceptable (300 reading is post-meal). She will hold her metformin until follow-up due to bump in creatinine today. Qualifiers: Diabetes mellitus type: type 2 Diabetes mellitus ferry terminal agent insulin use: without ferry terminal agent use Diabetes mellitus complication status: without complication Qualified Code(s): E11.9 - Type 2 diabetes mellitus without complications (7) Acute kidney injury SNOMED Code(s): 16732250 ICD Code: N17.9 - ACUTE KIDNEY FAILURE, UNSPECIFIED Status: Acute Current Visit: Yes Problem Details: Creatinine up to 1.2 today from 0.9 on admission, likely secondary to contrast. She did get 500 cc of fluid overnight. Discussed staying admitted another night to give IV fluids and recheck creatinine in the am but she is feeling well and prefers discharge home. This is not unreasonable as she is fully able to drink fluids by mouth. Will just plan for close outpatient follow-up with recheck of labs later in the week. - Patient Summary/Data Operative Procedure(s) Performed: none Complications: none Consults: none Labs Pending at D/C: none Recommended Follow-up Testing/Procedures: BMP Planned Operative Procedure(s) after DC: none Hospital Course: See details under problems above. Her symptoms resolved prior to admission to the floor and remained resolve throughout her hospitalization. Her oxygen was also weaned down to her usual 2L via nasal cannula. Her hospitalization was complicated by an increase in creatinine on hospital day #1 but she preferred dismissal home with attention to pushing oral fluids over spending another night in the hospital to get IV fluids. This was felt reasonable given absence of nausea or vomiting and patient agreement to push fluids. She will be dismissed home on prednisone and will follow-up in clinic in 3-4 days. - Patient Instructions Diet: Usual Diet as Tolerated - Discharge Plan Home Medications: Home Meds Albuterol [Proventil HFA] 2 puff INH Q4H PRN 05/05/16 [History] Setfi-0-Ekqmbzxzhn Inhibitor [Aralast Director Of Anesthesia Services] 8,000 mg IV Q14D 05/05/16 [History] Hydrochlorothiazide 25 mg PO DAILY 05/05/16 [History] NIFEdipine [Adalat cc] 60 mg PO DAILY 05/05/16 [History] Ramipril [Altace] 10 mg PO DAILY 05/05/16 [History] Saxagliptin HCl [Onglyza] 5 mg PO DAILY 05/05/16 [History] Simvastatin [Zocor] 10 mg PO BEDTIME 05/05/16 [History] Tiotropium [Spiriva HandiHaler] 1 cap PO DAILY 05/05/16 [History] cloNIDine HCl [Catapres] 0.2 mg PO DAILY 05/05/16 [History] metFORMIN [Glucophage] 850 mg PO BID 05/05/16 [History] Albuterol [Proventil Neb Soln] 2.5 mg INH BID 08/14/17 [History] Zrdlp-9-Msnsmvyrcy Inhibitor [Glassia] 1 gm IV Q7D 08/14/17 [History] Fluticasone/Vilanterol [Breo Ellipta 200-25 Mcg INH] 1 each IH DAILY 08/14/17 [ History] Fluticasone/Vilanterol [Breo Ellipta 200-25 Mcg INH] 1 puff INH DAILY 08/15/17 [ History] Patient Handouts: Prednisone tablets Forms: ED Department Discharge Referrals: Erna Brown MD [Physician] - 08/18/17 - Discharge Summary/Plan Comment DC Time >30 min.: No - General Info Date of Service: 08/15/17 Subjective Update: Patient reports feeling well this morning. She slept well and is feeling rested. She denies any chest pain since admission. No cough or shortness of breath. No fever. - Review of Systems General: Reports: No Symptoms HEENT: Reports: No Symptoms Pulmonary: Reports: No Symptoms Cardiovascular: Reports: No Symptoms Gastrointestinal: Reports: No Symptoms Genitourinary: Reports: No Symptoms Musculoskeletal: Reports: No Symptoms Skin: Reports: No Symptoms - Patient Data Vitals - Most Recent: Last Vital Signs Temp 36.1 C 08/15/17 06:00 Pulse 77 08/15/17 06:00 Resp 20 08/15/17 06:00 BP 109/55 L 08/15/17 06:00 Pulse Ox 96 08/15/17 07:26 Weight - Most Recent: 68.039 kg I&O - Last 24 hours: Intake & Output 08/14/17 08/15/17 08/15/17 22:59 06:59 14:59 Intake Total 280 600 Output Total 300 1000 Balance -20 -400 Lab Results - Last 24 hrs: Laboratory Results - last 24 hr 08/14/17 08/14/17 08/14/17 Range/Units 19:35 19:35 19:35 WBC 11.2 H (4.0-10.0) x10^3/uL RBC 4.64 (4.00-5.50) x10^6/uL Hgb 14.1 (12.0-16.0) g/dL Hct 42.3 (33.0-47.0) % MCV 91.2 (78.0-93.0) fL MCH 30.4 (26.0-32.0) pg MCHC 33.3 (32.0-36.0) g/dL RDW Coeff of Jose 13.2 (10.0-15.0) % Plt Count 281 (130-400) x10^3/uL Neut % (Auto) 72.1 (50.0-80.0) % Lymph % (Auto) 15.4 L (25.0-50.0) % [place] % (Auto) 10.5 (2.0-11.0) % Eos % (Auto) 1.8 (0.0-4.0) % Baso % (Auto) 0.2 (0.2-1.2) % PT 10.4 (9.6-11.4) SEC INR 1.0 L (2.0-3.5) D-Dimer, Quantitative 0.91 H (<=0.58) mg/LFEU Sodium 139 (136-145) mmol/L Potassium 3.8 (3.5-5.1) mmol/L Chloride 100 (98-107) mmol/L Carbon Dioxide 29 (21-32) mmol/L Anion Gap 13.8 (10-20) mmol/L BUN 24 H (7-18) mg/dL Creatinine 0.9 (0.55-1.02) mg/dL Est Cr Clr Drug Dosing 49.51 mL/min Estimated GFR (MDRD) > 60 Glucose 107 H (74-106) mg/dL POC Glucose (74-106) mg/dL Lactic Acid (0.4-2.0) mmol/L Calcium 9.4 (8.5-10.1) mg/dL Corrected Calcium 9.96 (8.5-10.1) mg/dL Phosphorus 3.8 (2.6-4.7) mg/dL Magnesium 1.5 L (1.8-2.4) mg/dL Total Bilirubin 0.5 (0.2-1.0) mg/dL AST 13 L (15-37) U/L ALT 18 (14-59) U/L Alkaline Phosphatase 108 (46-116) U/L Troponin I < 0.017 (<=0.056) ng/mL C-Reactive Protein 1.1 H (<=0.9) mg/dL NT-Pro-B Natriuret Pep 85 (<=125) pg/mL Total Protein 7.8 (6.4-8.2) g/dL Albumin 3.3 L (3.4-5.0) g/dL Globulin 4.5 Albumin/Globulin Ratio 0.73 08/14/1718 08/15/17 Range/Units 19:35 06:03 08:52 WBC 9.1 (4.0-10.0) x10^3/uL RBC 4.33 (4.00-5.50) x10^6/uL Hgb 13.2 (12.0-16.0) g/dL Hct 39.6 (33.0-47.0) % MCV 91.5 (78.0-93.0) fL MCH 30.5 (26.0-32.0) pg MCHC 33.3 (32.0-36.0) g/dL RDW Coeff of Jose 13.1 (10.0-15.0) % Plt Count 261 (130-400) x10^3/uL Neut % (Auto) 86.0 H (50.0-80.0) % Lymph % (Auto) 6.9 L (25.0-50.0) % [place] % (Auto) 7.0 (2.0-11.0) % Eos % (Auto) 0.0 (0.0-4.0) % Baso % (Auto) 0.1 L (0.2-1.2) % PT (9.6-11.4) SEC INR (2.0-3.5) D-Dimer, Quantitative (<=0.58) mg/LFEU Sodium (136-145) mmol/L Potassium (3.5-5.1) mmol/L Chloride (98-107) mmol/L Carbon Dioxide (21-32) mmol/L Anion Gap (10-20) mmol/L BUN (7-18) mg/dL Creatinine (0.55-1.02) mg/dL Est Cr Clr Drug Dosing mL/min Estimated GFR (MDRD) Glucose (74-106) mg/dL POC Glucose 183 H (74-106) mg/dL Lactic Acid 0.8 (0.4-2.0) mmol/L Calcium (8.5-10.1) mg/dL Corrected Calcium (8.5-10.1) mg/dL Phosphorus (2.6-4.7) mg/dL Magnesium (1.8-2.4) mg/dL Total Bilirubin (0.2-1.0) mg/dL AST (15-37) U/L ALT (14-59) U/L Alkaline Phosphatase (46-116) U/L Troponin I (<=0.056) ng/mL C-Reactive Protein (<=0.9) mg/dL NT-Pro-B Natriuret Pep (<=125) pg/mL Total Protein (6.4-8.2) g/dL Albumin (3.4-5.0) g/dL Globulin Albumin/Globulin Ratio 08/15/18 Range/Units 08:52 WBC (4.0-10.0) x10^3/uL RBC (4.00-5.50) x10^6/uL Hgb (12.0-16.0) g/dL Hct (33.0-47.0) % MCV (78.0-93.0) fL MCH (26.0-32.0) pg MCHC (32.0-36.0) g/dL RDW Coeff of Jose (10.0-15.0) % Plt Count (130-400) x10^3/uL Neut % (Auto) (50.0-80.0) % Lymph % (Auto) (25.0-50.0) % [place] % (Auto) (2.0-11.0) % Eos % (Auto) (0.0-4.0) % Baso % (Auto) (0.2-1.2) % PT (9.6-11.4) SEC INR (2.0-3.5) D-Dimer, Quantitative (<=0.58) mg/LFEU Sodium 136 (136-145) mmol/L Potassium 4.1 (3.5-5.1) mmol/L Chloride 99 (98-107) mmol/L Carbon Dioxide 26 (21-32) mmol/L Anion Gap 15.1 (10-20) mmol/L BUN 23 H (7-18) mg/dL Creatinine 1.2 H (0.55-1.02) mg/dL Est Cr Clr Drug Dosing 37.13 mL/min Estimated GFR (MDRD) 44 Glucose 303 H (74-106) mg/dL POC Glucose (74-106) mg/dL Lactic Acid (0.4-2.0) mmol/L Calcium 9.0 (8.5-10.1) mg/dL Corrected Calcium (8.5-10.1) mg/dL Phosphorus (2.6-4.7) mg/dL Magnesium (1.8-2.4) mg/dL Total Bilirubin (0.2-1.0) mg/dL AST (15-37) U/L ALT (14-59) U/L Alkaline Phosphatase (46-116) U/L Troponin I (<=0.056) ng/mL C-Reactive Protein 0.9 (<=0.9) mg/dL NT-Pro-B Natriuret Pep (<=125) pg/mL Total Protein (6.4-8.2) g/dL Albumin (3.4-5.0) g/dL Globulin Albumin/Globulin Ratio [facility] Results - Last 24 hrs: Microbiology 08/14/17 20:33 Anaerobic Blood Culture - Final Blood - Venous - Lab Draw 08/14/17 20:24 Anaerobic Blood Culture - Final Blood - Venous Med Orders - Current: Current Medications Albuterol/Ipratropium (Duoneb 3.0-0.5 Mg/3 Ml) 3 ml NEB Q4HRRT [facility] Last Admin: 08/15/17 07:21 Dose: 3 ml Clonidine HCl (Catapres) 0.2 mg PO BEDTIME [facility] Last Admin: 08/14/17 23:34 Dose: 0.2 mg Enoxaparin Sodium (Lovenox) 40 mg SUBCUT DAILY [facility] Last Admin: 08/15/17 08:11 Dose: 40 mg Hydrochlorothiazide (Hydrochlorothiazide) 25 mg PO DAILY [facility] Last Admin: 08/15/17 08:11 Dose: 25 mg Lisinopril (Prinivil) 20 mg PO BEDTIME [facility] Last Admin: 08/14/17 23:34 Dose: 20 mg Nifedipine (Procardia Xl) 60 mg PO BEDTIME [facility] Last Admin: 08/14/17 23:41 Dose: 60 mg Prednisone (Prednisone) 40 mg PO WITHBREAKFAST [facility] Last Admin: 08/15/17 08:11 Dose: 40 mg Simvastatin (Zocor) 10 mg PO BEDTIME [facility] Last Admin: 08/15/17 03:06 Dose: 10 mg Sitagliptin Phosphate (Januvia) 100 mg PO BEDTIME [facility] Last Admin: 08/14/17 23:34 Dose: 100 mg Sodium Chloride (Saline Flush) 10 ml FLUSH ASDIRECTED PRN PRN Reason: Keep Vein Open Last Admin: 08/14/17 19:44 Dose: 10 ml Discontinued Medications Albuterol/Ipratropium (Duoneb 3.0-0.5 Mg/3 Ml) 3 ml NEB ONETIME ONE Stop: 08/14/17 19:31 Last Admin: 08/14/17 19:44 Dose: 3 ml Albuterol/Ipratropium (Duoneb 3.0-0.5 Mg/3 Ml) 3 ml NEB Q4HRRT [facility] Last Admin: 08/15/17 02:08 Dose: Not Given Hydrochlorothiazide (Hydrochlorothiazide) 25,000 mg PO DAILY [facility] Lactated Ringer's (Ringers, Lactated) 500 mls @ 100 mls/hr IV ASDIRECTED [facility] Stop: 08/15/17 04:16 Last Admin: 08/14/17 23:24 Dose: 100 mls/hr Iopamidol (Isovue-300 (61%)) 100 ml IVPUSH ONETIME ONE Stop: 08/14/17 20:56 Last Admin: 08/14/17 21:06 Dose: 100 ml Methylprednisolone Sodium Succinate (Solu-Medrol) 125 mg IV ONETIME ONE Stop: 08/14/17 19:31 Last Admin: 08/14/17 19:44 Dose: 125 mg Simvastatin (Zocor) 10 mg PO BEDTIME [facility] Tiotropium [place] (Spiriva Handihaler) mcg INH DAILY [facility] - Exam General: Reports: Alert, Cooperative, No Acute Distress HEENT: Reports: Mucous Membr. Moist/[place] Neck: Reports: Supple, Trachea Midline, No Thyromegaly. Denies: Lymphadenopathy Lungs: Reports: Clear to Auscultation, Normal Respiratory Effort Cardiovascular: Reports: Regular Rate, Regular Rhythm, No Murmurs GI/Abdominal Exam: Normal Bowel Sounds, Soft, Non-Tender, No Organomegaly, No Distention, No Mass Extremities: Non-Tender, No Pedal Edema, Normal Capillary Refill Skin: Reports: Warm, Dry, Intact
[2017-08-15 10:22] VITALS: BP 115/73
--- NOTE | 2017-08-15 11:17 | EDM.PDOC ---
ED HPI GENERAL MEDICAL PROBLEM - General Chief Complaint: Chest Pain Stated Complaint: cp/sob Time Seen by Provider: 08/14/17 19:40 Source of Information: Reports: Patient History Limitations: Reports: No Limitations - History of Present Illness INITIAL COMMENTS - FREE TEXT/NARRATIVE: Pt. presents to ER with complaints of respirophasic chest pain and shortness of breath . No fever or chills. She states that she has been feeling poorly and has increased work of breathing for the past 2 days. Denies any nausea, vomiting, or diarrhea. She has a longstanding history of COPD. She states that she has has a cough, but states that it is non-productive. She denies any sore throat or rhinorrhea. No abdominal pain. She states that she is on home O2 at 2 L/min. She states that the chest pain is worse with deep breathing. Left chest Pain Score (Numeric/FACES): 5 - Related Data Allergies Allergy/AdvReac Type Severity Reaction Status Date / Time glipizide Allergy Itching Verified 06/17/16 08:50 Home Meds: Home Meds Albuterol [Proventil HFA] 2 puff INH Q4H PRN 05/05/16 [History] [id number] Inhibitor [Aralast [employer]] 8,000 mg IV Q14D 05/05/16 [History] Hydrochlorothiazide 25 mg PO DAILY 05/05/16 [History] NIFEdipine [Adalat cc] 60 mg PO DAILY 05/05/16 [History] Ramipril [Altace] 10 mg PO DAILY 05/05/16 [History] Saxagliptin HCl [Onglyza] 5 mg PO DAILY 05/05/16 [History] Simvastatin [Zocor] 10 mg PO BEDTIME 05/05/16 [History] Tiotropium [Spiriva HandiHaler] 1 cap PO DAILY 05/05/16 [History] cloNIDine HCl [Catapres] 0.2 mg PO DAILY 05/05/16 [History] metFORMIN [Glucophage] 850 mg PO BID 05/05/16 [History] Albuterol [Proventil Neb Soln] 2.5 mg INH BID 08/14/17 [History] Ppwvz-3-Madxbkcrsr Inhibitor [Glassia] 1 gm IV Q7D 08/14/17 [History] Fluticasone/Vilanterol [Breo Ellipta 200-25 Mcg INH] 1 each IH DAILY 08/14/17 [ History] Fluticasone/Vilanterol [Breo Ellipta 200-25 Mcg INH] 1 puff INH DAILY 08/15/17 [ History] Past Medical History HEENT History: Reports: Other (See Below) Other HEENT History: conjunctival hemorrhage Cardiovascular History: Reports: High Cholesterol, Hypertension, SOB on Exertion , Other (See Below) Other Cardiovascular History: varicose veins Respiratory History: Reports: COPD, Other (See Below) Other Respiratory History: alpha-1 anti-trypsin deficiency, panlobular emphysema , pulmonary nodules, bronchiectasis Gastrointestinal History: Reports: Diverticulosis 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 herpes zoster. compression fx 12th thoracic vertebra Endocrine/Metabolic History: Reports: Diabetes, Type II, Osteoporosis Hematologic History: Reports: None Other Hematologic History: apla 1 deficiency Immunologic History: Reports: None Oncologic (Cancer) History: Reports: None Dermatologic History: Reports: None - Infectious Disease History Infectious Disease History: Reports: None - Past Surgical History HEENT Surgical History: Reports: Cataract Surgery, Other (See Below) Other HEENT Surgeries/Procedures: bilateral blepharoplasty Social & Family History - Family History Family Medical History: Noncontributory Cardiac: Reports: Heart Failure Neurological: Reports: CVA - Tobacco Use Smoking Status *Q: Never Smoker Second Hand Smoke Exposure: No - Caffeine Use Caffeine Use: Reports: Coffee - Recreational Drug Use Recreational Drug Use: No - Living Situation & Occupation Living situation: Reports: , with Significant Other 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[email or web address]) ED ROS GENERAL - Review of Systems Review Of Systems: See Below Constitutional: Reports: No Symptoms HEENT: Reports: No Symptoms Respiratory: Reports: Shortness of Breath, Pleuritic Chest Pain, Cough Cardiovascular: Reports: No Symptoms Endocrine: Reports: No Symptoms GI/Abdominal: Reports: No Symptoms : Reports: No Symptoms Musculoskeletal: Reports: No Symptoms Skin: Reports: No Symptoms Neurological: Reports: No Symptoms Psychiatric: Reports: No Symptoms Hematologic/Lymphatic: Reports: No Symptoms Immunologic: Reports: No Symptoms ED EXAM, GENERAL - Physical Exam Exam: See Below Exam Limited By: No Limitations General Appearance: Alert, WD/WN, No Apparent Distress Ears: Normal External Exam, Normal Canal, Hearing Grossly Normal, Normal TMs Ear Exam: Bilateral Ear: Auricle Normal, Canal Normal, TM normal Nose: Normal Inspection, Normal Mucosa, No Blood Throat/Mouth: Normal Inspection, Normal Lips, Normal Teeth, Normal Gums, Normal Oropharynx, Normal Voice, No Airway Compromise Head: Atraumatic, Normocephalic Neck: Normal Inspection, Supple, Non-Tender, Full Range of Motion Respiratory/Chest: Respiratory Distress, Decreased Breath Sounds Peripheral Pulses: 2+: Radial (L), Radial (R) GI/Abdominal: Normal Bowel Sounds, Soft, Non-Tender, No Organomegaly, No Distention, No Mass Extremities: Non-Tender, No Pedal Edema, Normal Capillary Refill Course - Vital Signs Last Recorded V/S: Last Vital Signs Temp 36.8 C 08/15/17 10:00 Pulse 83 08/15/17 10:00 Resp 18 08/15/17 10:00 BP 115/73 08/15/17 10:00 Pulse Ox 91 L 08/15/17 10:00 - Orders/Labs/Meds Orders: Active Orders 24 hr Category Date Time Status RT Aerosol Therapy [RC] 07,11,15,19,23,03 Care 08/14/17 19:31 Active Chest 2V [CR] Stat Exams 08/14/17 19:29 Taken PE Chest [Ang Chest] [CT] Stat Exams 08/14/17 20:39 Taken CULTURE BLOOD [BC] Stat Lab 08/14/17 20:24 Results CULTURE BLOOD [BC] Stat Lab 08/14/17 20:33 Results Sodium Chloride 0.9% [Saline Flush] Med 08/14/17 19:29 Active 10 ml FLUSH ASDIRECTED PRN Blood Culture x2 Reflex Set [OM.PC] Stat Oth 08/14/17 19:29 Ordered Peripheral IV Insertion Adult [OM.PC] Routine Oth 08/14/17 19:29 Ordered Medication Orders Albuterol/Ipratropium (Duoneb 3.0-0.5 Mg/3 Ml) 3 ml NEB Q4HRRT GALINDO Last Admin: 08/15/17 07:21 Dose: 3 ml Admin: 08/15/17 03:06 Dose: 3 ml Admin: 08/14/17 23:33 Dose: 3 ml Clonidine HCl (Catapres) 0.2 mg PO BEDTIME [facility] Last Admin: 08/14/17 23:34 Dose: 0.2 mg Enoxaparin Sodium (Lovenox) 40 mg SUBCUT DAILY [facility] Last Admin: 08/15/17 08:11 Dose: 40 mg Hydrochlorothiazide (Hydrochlorothiazide) 25 mg PO DAILY [facility] Last Admin: 08/15/17 08:11 Dose: 25 mg Lisinopril (Prinivil) 20 mg PO BEDTIME GALINDO Last Admin: 08/14/17 23:34 Dose: 20 mg Nifedipine (Procardia Xl) 60 mg PO BEDTIME GALINDO Last Admin: 08/14/17 23:41 Dose: 60 mg Prednisone (Prednisone) 40 mg PO WITHBREAKFAST [facility] Last Admin: 08/15/17 08:11 Dose: 40 mg Simvastatin (Zocor) 10 mg PO BEDTIME [facility] Last Admin: 08/15/17 03:06 Dose: 10 mg Sitagliptin Phosphate (Januvia) 100 mg PO BEDTIME [facility] Last Admin: 08/14/17 23:34 Dose: 100 mg Sodium Chloride (Saline Flush) 10 ml FLUSH ASDIRECTED PRN PRN Reason: Keep Vein Open Last Admin: 08/14/17 19:44 Dose: 10 ml Labs: Laboratory Tests 08/14/17 08/14/17 08/14/17 Range/Units 19:35 19:35 19:35 WBC 11.2 H (4.0-10.0) x10^3/uL RBC 4.64 (4.00-5.50) x10^6/uL Hgb 14.1 (12.0-16.0) g/dL Hct 42.3 (33.0-47.0) % MCV 91.2 (78.0-93.0) fL MCH 30.4 (26.0-32.0) pg MCHC 33.3 (32.0-36.0) g/dL RDW Coeff of Jose 13.2 (10.0-15.0) % Plt Count 281 (130-400) x10^3/uL Neut % (Auto) 72.1 (50.0-80.0) % Lymph % (Auto) 15.4 L (25.0-50.0) % [place] % (Auto) 10.5 (2.0-11.0) % Eos % (Auto) 1.8 (0.0-4.0) % Baso % (Auto) 0.2 (0.2-1.2) % PT 10.4 (9.6-11.4) SEC INR 1.0 L (2.0-3.5) D-Dimer, Quantitative 0.91 H (<=0.58) mg/LFEU Sodium 139 (136-145) mmol/L Potassium 3.8 (3.5-5.1) mmol/L Chloride 100 (98-107) mmol/L Carbon Dioxide 29 (21-32) mmol/L Anion Gap 13.8 (10-20) mmol/L BUN 24 H (7-18) mg/dL Creatinine 0.9 (0.55-1.02) mg/dL Est Cr Clr Drug Dosing 49.51 mL/min Estimated GFR (MDRD) > 60 Glucose 107 H (74-106) mg/dL Lactic Acid (0.4-2.0) mmol/L Calcium 9.4 (8.5-10.1) mg/dL Corrected Calcium 9.96 (8.5-10.1) mg/dL Phosphorus 3.8 (2.6-4.7) mg/dL Magnesium 1.5 L (1.8-2.4) mg/dL Total Bilirubin 0.5 (0.2-1.0) mg/dL AST 13 L (15-37) U/L ALT 18 (14-59) U/L Alkaline Phosphatase 108 (46-116) U/L Troponin I < 0.017 (<=0.056) ng/mL C-Reactive Protein 1.1 H (<=0.9) mg/dL NT-Pro-B Natriuret Pep 85 (<=125) pg/mL Total Protein 7.8 (6.4-8.2) g/dL Albumin 3.3 L (3.4-5.0) g/dL Globulin 4.5 Albumin/Globulin Ratio 0.73 //18 Range/Units 19:35 WBC (4.0-10.0) x10^3/uL RBC (4.00-5.50) x10^6/uL Hgb (12.0-16.0) g/dL Hct (33.0-47.0) % MCV (78.0-93.0) fL MCH (26.0-32.0) pg MCHC (32.0-36.0) g/dL RDW Coeff of Jose (10.0-15.0) % Plt Count (130-400) x10^3/uL Neut % (Auto) (50.0-80.0) % Lymph % (Auto) (25.0-50.0) % [place] % (Auto) (2.0-11.0) % Eos % (Auto) (0.0-4.0) % Baso % (Auto) (0.2-1.2) % PT (9.6-11.4) SEC INR (2.0-3.5) D-Dimer, Quantitative (<=0.58) mg/LFEU Sodium (136-145) mmol/L Potassium (3.5-5.1) mmol/L Chloride (98-107) mmol/L Carbon Dioxide (21-32) mmol/L Anion Gap (10-20) mmol/L BUN (7-18) mg/dL Creatinine (0.55-1.02) mg/dL Est Cr Clr Drug Dosing mL/min Estimated GFR (MDRD) Glucose (74-106) mg/dL Lactic Acid 0.8 (0.4-2.0) mmol/L Calcium (8.5-10.1) mg/dL Corrected Calcium (8.5-10.1) mg/dL Phosphorus (2.6-4.7) mg/dL Magnesium (1.8-2.4) mg/dL Total Bilirubin (0.2-1.0) mg/dL AST (15-37) U/L ALT (14-59) U/L Alkaline Phosphatase (46-116) U/L Troponin I (<=0.056) ng/mL C-Reactive Protein (<=0.9) mg/dL NT-Pro-B Natriuret Pep (<=125) pg/mL Total Protein (6.4-8.2) g/dL Albumin (3.4-5.0) g/dL Globulin Albumin/Globulin Ratio Meds: Medications Generic Name Dose Route Start Last Admin Trade Name Freq PRN Reason Stop Dose Admin Albuterol/Ipratropium 3 ml 08/14/17 23:30 08/15/17 07:21 Duoneb 3.0-0.5 Mg/3 Ml NEB 3 ml Q4HRRT GALINDO Administration Clonidine HCl 0.2 mg 08/14/17 23:02 08/14/17 23:34 Catapres PO 0.2 mg BEDTIME GALINDO Administration Enoxaparin Sodium 40 mg 08/15/17 08:00 08/15/17 08:11 Lovenox SUBCUT 40 mg DAILY GALINDO Administration Hydrochlorothiazide 25 mg 08/15/17 08:00 08/15/17 08:11 Hydrochlorothiazide PO 25 mg DAILY GALINDO Administration Lisinopril 20 mg 08/14/17 23:15 08/14/17 23:34 Prinivil PO 20 mg BEDTIME GALINDO Administration Nifedipine 60 mg 08/14/17 23:05 08/14/17 23:41 Procardia Xl PO 60 mg BEDTIME GALINDO Administration Prednisone 40 mg 08/15/17 08:00 08/15/17 08:11 Prednisone PO 40 mg WITHBREAKFAST GALINDO Administration Simvastatin 10 mg 08/14/17 23:45 08/15/17 03:06 Zocor PO 10 mg BEDTIME GALINDO Administration Sitagliptin Phosphate 100 mg 08/14/17 23:30 08/14/17 23:34 Januvia PO 100 mg BEDTIME GALINDO Administration Sodium Chloride 10 ml 08/14/17 19:29 08/14/17 19:44 Saline Flush FLUSH 10 ml ASDIRECTED PRN Administration Keep Vein Open Discontinued Medications Generic Name Dose Route Start Last Admin Trade Name Freq PRN Reason Stop Dose Admin Albuterol/Ipratropium 3 ml 08/14/17 19:30 08/14/17 19:44 Duoneb 3.0-0.5 Mg/3 Ml NEB 08/14/17 19:31 3 ml ONETIME ONE Administration Albuterol/Ipratropium 3 ml 08/14/17 23:00 08/15/17 02:08 Duoneb 3.0-0.5 Mg/3 Ml NEB Not Given Q4HRRT GALINDO Hydrochlorothiazide 25,000 mg 08/15/17 08:00 Hydrochlorothiazide PO DAILY GALINDO Lactated Ringer's 500 mls @ 100 mls/hr 08/14/17 23:15 08/14/17 23:24 Ringers, Lactated IV 08/15/17 04:16 100 mls/hr ASDIRECTED GALINDO Administration Iopamidol 100 ml 08/14/17 20:55 08/14/17 21:06 Isovue-300 (61%) IVPUSH 08/14/17 20:56 100 ml ONETIME ONE Administration Methylprednisolone Sodium Succinate 125 mg 08/14/17 19:30 08/14/17 19:44 Solu-Medrol IV 08/14/17 19:31 125 mg ONETIME ONE Administration Simvastatin 10 mg 08/15/17 20:00 Zocor PO BEDTIME GALINDO Tiotropium [place] mcg 08/15/17 08:00 Spiriva Handihaler INH DAILY GALINDO - Radiology Interpretation Free Text/Narrative:: CXR was negative. CT angiogram showed no PE. There was evidence of some basilar atelectasis. Departure - Departure Time of Disposition: 22:25 Disposition: Admitted As Inpatient 67 Clinical Impression: COPD exacerbation - Discharge Information - My Orders Last 24 Hours: My Active Orders 08/14/17 19:29 Chest 2V [CR] Stat Sodium Chloride 0.9% [Saline Flush] 10 ml FLUSH ASDIRECTED PRN Blood Culture x2 Reflex Set [OM.PC] Stat Peripheral IV Insertion Adult [OM.PC] Routine 08/14/17 19:31 RT Aerosol Therapy [RC] 07,11,15,19,23,03 08/14/17 20:24 CULTURE BLOOD [BC] Stat 08/14/17 20:33 CULTURE BLOOD [BC] Stat 08/14/17 20:39 PE Chest [Ang Chest] [CT] Stat - Assessment/Plan Last 24 Hours: My Active Orders 08/14/17 19:29 Chest 2V [CR] Stat Sodium Chloride 0.9% [Saline Flush] 10 ml FLUSH ASDIRECTED PRN Blood Culture x2 Reflex Set [OM.PC] Stat Peripheral IV Insertion Adult [OM.PC] Routine 08/14/17 19:31 RT Aerosol Therapy [RC] 07,11,15,19,23,03 08/14/17 20:24 CULTURE BLOOD [BC] Stat 08/14/17 20:33 CULTURE BLOOD [BC] Stat 08/14/17 20:39 PE Chest [Ang Chest] [CT] Stat
[2017-08-15] MEDS ORDERED: Simvastatin 10 MG Tab PO SCH (20:00)
== END 2017-08-15 14:30 | disposition home or self-care (01) | DRG 190 ==
LOC: VM.ED 19:14 → VM.MS 22:08
PROVIDERS: ADMIT Family Medicine; ATTEND Family Medicine
DX: J44.1 Chronic obstructive pulmonary disease with (acute) exacerbation (principal); J96.21 Acute and chronic respiratory failure with hypoxia; N17.9 Acute kidney failure, unspecified; E88.01 Alpha-1-antitrypsin deficiency; Z99.81 Dependence on supplemental oxygen; Z88.8 Allergy status to other drugs, medicaments and biological substances; Z79.899 Other long term (current) drug therapy; I10 Essential (primary) hypertension; E11.9 Type 2 diabetes mellitus without complications; Z79.84 Long term (current) use of oral hypoglycemic drugs; T50.8X5A Adverse effect of diagnostic agents, initial encounter
CPT/HCPCS: 36415; 71046; 71275; 80048; 80053; 82962; 83605; 83735; 83880; 84100; 84484; 85025; 85379; 85610; 86140; 87040; 93005; 94640; 94760; 96374; 99285; A9270-GY; J1650; J2930; J7050; J7120; Q9967

== ENCOUNTER 2018-04-02 22:51 | Inpatient (IN) | payer MEDICARE, BC ==
[2018-04-02] MEDS ORDERED: methylPREDNISolone Sodium Succinate 125 MG/2 ML SDV IV ONE (23:09)
[2018-04-02] MEDS ORDERED: Albuterol/Ipratropium 3.0-0.5 MG/3 ML Neb Soln NEB ONE (23:09)
[2018-04-02] MEDS: Sodium Chloride 0.9% 10 ML Syringe FLUSH PRN (23:15)
[2018-04-02] MEDS ORDERED: cefTRIAXone 2 GM Vial IVPUSH ONE (23:19)
[2018-04-02] MEDS ORDERED: Azithromycin 250 MG Tab PO ONE (23:20)
--- NOTE | 2018-04-02 23:32 | EDM.PDOC ---
ED HPI GENERAL MEDICAL PROBLEM - General Chief Complaint: Respiratory Problem Stated Complaint: Shortness of Breath Time Seen by Provider: 04/02/18 22:52 Source of Information: Reports: Patient, Family History Limitations: Reports: No Limitations - History of Present Illness INITIAL COMMENTS - FREE TEXT/NARRATIVE: Pt. presents to ER with a several day history of cough, chest congestion, and increased SOB. Pt. states that she started with a prodrome of sinus congestion but starts that the cough is gotten worse and is now productive of yellowish sputum. She is particularly short of breath when she is active of walking around. Pt. has a history of COPD and is on home O2. She states that she has increased her O2 to 3L/min. states that she has been confused somewhat. No nausea, vomiting, or diarrhea. No rash. She states that she has had her influenza and pneumococcal vaccinations. She does complain of being fatigued, but states that she is always mildly fatigued. Onset: Gradual Onset Date: 03/30/18 Location: Reports: Chest, Generalized - Related Data Allergies Allergy/AdvReac Type Severity Reaction Status Date / Time glipizide Allergy Itching Verified 06/17/16 08:50 Home Meds: Home Meds Albuterol [Proventil HFA] 2 puff INH Q4H PRN 05/05/16 [History] Ufblp-0-Bdsyxnylqx Inhibitor [Aralast Electronic Bench Technician] 8,000 mg IV Q14D 05/05/16 [History] Hydrochlorothiazide 25 mg PO DAILY 05/05/16 [History] NIFEdipine [Adalat cc] 60 mg PO DAILY 05/05/16 [History] Ramipril [Altace] 10 mg PO DAILY 05/05/16 [History] Saxagliptin HCl [Onglyza] 5 mg PO DAILY 05/05/16 [History] Simvastatin [Zocor] 10 mg PO BEDTIME 05/05/16 [History] Tiotropium [Spiriva HandiHaler] 1 cap PO DAILY 05/05/16 [History] cloNIDine HCl [Catapres] 0.2 mg PO DAILY 05/05/16 [History] Albuterol [Proventil Neb Soln] 2.5 mg INH BID 08/14/17 [History] Lctzf-5-Rwcqgxfjoi Inhibitor [Glassia] 1 gm IV Q7D 08/14/17 [History] Fluticasone/Vilanterol [Breo Ellipta 200-25 Mcg INH] 1 each IH DAILY 08/14/17 [ History] predniSONE 40 mg PO WITHBREAKFAST #8 tablet 08/15/17 [Rx] Past Medical History HEENT History: Reports: Other (See Below) Other HEENT History: conjunctival hemorrhage Cardiovascular History: Reports: High Cholesterol, Hypertension, SOB on Exertion , Other (See Below) Other Cardiovascular History: varicose veins Respiratory History: Reports: COPD, Other (See Below) Other Respiratory History: alpha-1 anti-trypsin deficiency, panlobular emphysema , pulmonary nodules, bronchiectasis Gastrointestinal History: Reports: Diverticulosis 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 herpes zoster. compression fx 12th thoracic vertebra Endocrine/Metabolic History: Reports: Diabetes, Type II, Osteoporosis Hematologic History: Reports: None Other Hematologic History: apla 1 deficiency Immunologic History: Reports: None Oncologic (Cancer) History: Reports: None Dermatologic History: Reports: None - Infectious Disease History Infectious Disease History: Reports: None - Past Surgical History HEENT Surgical History: Reports: Cataract Surgery, Other (See Below) Other HEENT Surgeries/Procedures: bilateral blepharoplasty Social & Family History - Family History Family Medical History: Noncontributory Cardiac: Reports: Heart Failure Neurological: Reports: CVA - Caffeine Use Caffeine Use: Reports: Coffee - Living Situation & Occupation Living situation: Reports: , with Significant Other 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 Denies: Pleuritic Chest Pain, Hemoptysis Cardiovascular: Reports: Dyspnea on Exertion. Denies: Edema Endocrine: Reports: No Symptoms GI/Abdominal: Reports: No Symptoms : Reports: No Symptoms Musculoskeletal: Reports: No Symptoms Skin: Reports: No Symptoms Neurological: Reports: Confusion ( states that the patient is more confused, having issues with running her oxygen system, etc.) Psychiatric: Reports: No Symptoms Hematologic/Lymphatic: Reports: No Symptoms Immunologic: Reports: No Symptoms ED EXAM, GENERAL - Physical Exam Exam: See Below Exam Limited By: No Limitations General Appearance: Alert, WD/WN, Moderate Distress Eye Exam: Bilateral Eye: EOMI, Normal Fundi, Normal Inspection, PERRL Ears: Normal External Exam, Normal Canal, Hearing Grossly Normal, Normal TMs Throat/Mouth: Normal Inspection, Normal Lips, Normal Teeth, Normal Gums, Normal Oropharynx, Normal Voice, No Airway Compromise Head: Atraumatic, Normocephalic Neck: Normal Inspection, Supple, Non-Tender Respiratory/Chest: No Accessory Muscle Use, Decreased Breath Sounds, Crackles, Rhonchi, Wheezing Cardiovascular: Normal Peripheral Pulses, Regular Rate, Rhythm, No Edema, No JVD , Tachycardia Peripheral Pulses: 3+: Radial (L), Radial (R) GI/Abdominal: Normal Bowel Sounds, Soft, Non-Tender, No Organomegaly, No Distention, No Abnormal Bruit, No Mass (Female) Exam: Deferred Rectal (Female) Exam: Deferred Back Exam: Normal Inspection, Full Range of Motion Extremities: Normal Inspection, Non-Tender, No Pedal Edema, Mottled, Pallor Neurological: Alert, Oriented, CN II-XII Intact, Normal Cognition, Normal Reflexes, No Motor/Sensory Deficits Psychiatric: Normal Affect, Normal Mood Skin Exam: Warm, Dry, Intact, Pallor Lymphatic: No Adenopathy EKG INTERPRETATION Rhythm: NSR Normanna: Normal P-Wave: Present QRS: Normal ST-T: Normal QT: Normal EKG Interpretation Comments: sinus tach with occasional pvcs Course - Orders/Labs/Meds Orders: Active Orders 24 hr Category Date Time Status Patient Status [ADT] Routine ADT 04/03/18 00:17 Ordered Cardiac Monitoring [RC] CONTINUOUS Care 04/02/18 23:03 Active Dietary Supplements [RC] BIDMEALS Care 04/02/18 23:19 Active Dietary Supplements [RC] BIDMEALS Care 04/02/18 23:20 Active EKG Documentation Completion [RC] STAT Care 04/02/18 23:03 Active Oxygen Therapy [RC] PRN Care 04/02/18 23:03 Active RT Aerosol Therapy [RC] ASDIRECTED Care 04/02/18 23:10 Active Chest 1V Frontal [CR] Stat Exams 04/02/18 23:04 Taken CULTURE BLOOD [BC] Stat Lab 04/02/18 23:35 Received CULTURE BLOOD [BC] Stat Lab 04/02/18 23:42 Received CULTURE SPUTUM + SMEAR [RM] Stat Lab 04/02/18 23:26 Ordered INFLUENZA A+B AG SCREEN [RM] Stat Lab 04/02/18 23:04 Ordered LACTIC ACID [CHEM] Stat Lab 04/02/18 23:35 Received UA W/MICROSCOPIC [URIN] Stat Lab 04/02/18 23:04 Ordered Sodium Chloride 0.9% [Saline Flush] Med 04/02/18 23:03 Active 10 ml FLUSH ASDIRECTED PRN Blood Culture x2 Reflex Set [OM.PC] Stat Oth 04/02/18 23:04 Ordered Peripheral IV Insertion Adult [OM.PC] Routine Oth 04/02/18 23:04 Ordered Medication Orders Sodium Chloride (Saline Flush) 10 ml FLUSH ASDIRECTED PRN PRN Reason: Keep Vein Open Last Admin: 04/02/18 23:15 Dose: 10 ml Labs: Laboratory Tests 04/02/18 04/02/18 04/02/18 Range/Units 23:35 23:35 23:35 WBC 22.2 H* (4.0-10.0) x10^3/uL RBC 4.55 (4.00-5.50) x10^6/uL Hgb 13.8 (12.0-16.0) g/dL Hct 41.2 (33.0-47.0) % MCV 90.5 (78.0-93.0) fL MCH 30.3 (26.0-32.0) pg MCHC 33.5 (32.0-36.0) g/dL RDW Coeff of Jose 14.0 (10.0-15.0) % Plt Count 338 D (130-400) x10^3/uL Neut % (Auto) 86.5 H (50.0-80.0) % Lymph % (Auto) 2.9 L (25.0-50.0) % [place] % (Auto) 10.5 (2.0-11.0) % Eos % (Auto) 0.0 (0.0-4.0) % Baso % (Auto) 0.1 L (0.2-1.2) % PT 11.6 H (9.6-11.4) SEC INR 1.1 L (2.0-3.5) POC ABG pH (7.35-7.45) POC ABG pCO2 (35-45) mmHG POC ABG pO2 (80-105) mmHG POC ABG HCO3 (22-26) mmol/L POC ABG Total CO2 (23-27) mmol/L POC ABG O2 Sat (95-98) % POC ABG Base Excess (-2-3) mmol/L POC FiO2 Sodium 135 L (136-145) mmol/L Potassium 4.1 (3.5-5.1) mmol/L Chloride 98 (98-107) mmol/L Carbon Dioxide 27 (21-32) mmol/L Anion Gap 14.1 (10-20) mmol/L BUN 29 H (7-18) mg/dL Creatinine 1.1 H (0.55-1.02) mg/dL Est Cr Clr Drug Dosing TNP Estimated GFR (MDRD) 49 Glucose 189 H (74-106) mg/dL Calcium 9.2 (8.5-10.1) mg/dL Corrected Calcium 10.08 (8.5-10.1) mg/dL Phosphorus 2.6 (2.6-4.7) mg/dL Magnesium 1.5 L (1.8-2.4) mg/dL Total Bilirubin 0.6 (0.2-1.0) mg/dL AST 17 (15-37) U/L ALT 24 (14-59) U/L Alkaline Phosphatase 119 H (46-116) U/L Troponin I < 0.017 (<=0.056) ng/mL C-Reactive Protein 15.8 H (<=0.9) mg/dL NT-Pro-B Natriuret Pep 297 H (<=125) pg/mL Total Protein 8.5 H (6.4-8.2) g/dL Albumin 2.9 L (3.4-5.0) g/dL Globulin 5.6 Albumin/Globulin Ratio 0.52 POC Result Comm 04/02/18 Range/Units 23:58 WBC (4.0-10.0) x10^3/uL RBC (4.00-5.50) x10^6/uL Hgb (12.0-16.0) g/dL Hct (33.0-47.0) % MCV (78.0-93.0) fL MCH (26.0-32.0) pg MCHC (32.0-36.0) g/dL RDW Coeff of Jose (10.0-15.0) % Plt Count (130-400) x10^3/uL Neut % (Auto) (50.0-80.0) % Lymph % (Auto) (25.0-50.0) % [place] % (Auto) (2.0-11.0) % Eos % (Auto) (0.0-4.0) % Baso % (Auto) (0.2-1.2) % PT (9.6-11.4) SEC INR (2.0-3.5) POC ABG pH 7.413 (7.35-7.45) POC ABG pCO2 39 (35-45) mmHG POC ABG pO2 48 L* (80-105) mmHG POC ABG HCO3 25 (22-26) mmol/L POC ABG Total CO2 26 (23-27) mmol/L POC ABG O2 Sat 84 L (95-98) % POC ABG Base Excess 0 (-2-3) mmol/L POC FiO2 0.32 Sodium (136-145) mmol/L Potassium (3.5-5.1) mmol/L Chloride (98-107) mmol/L Carbon Dioxide (21-32) mmol/L Anion Gap (10-20) mmol/L BUN (7-18) mg/dL Creatinine (0.55-1.02) mg/dL Est Cr Clr Drug Dosing Estimated GFR (MDRD) Glucose (74-106) mg/dL Calcium (8.5-10.1) mg/dL Corrected Calcium (8.5-10.1) mg/dL Phosphorus (2.6-4.7) mg/dL Magnesium (1.8-2.4) mg/dL Total Bilirubin (0.2-1.0) mg/dL AST (15-37) U/L ALT (14-59) U/L Alkaline Phosphatase (46-116) U/L Troponin I (<=0.056) ng/mL C-Reactive Protein (<=0.9) mg/dL NT-Pro-B Natriuret Pep (<=125) pg/mL Total Protein (6.4-8.2) g/dL Albumin (3.4-5.0) g/dL Globulin Albumin/Globulin Ratio POC Result Comm Called critical res Meds: Medications Generic Name Dose Route Start Last Admin Trade Name Freq PRN Reason Stop Dose Admin Sodium Chloride 10 ml 04/02/18 23:03 04/02/18 23:15 Saline Flush FLUSH 10 ml ASDIRECTED PRN Administration Keep Vein Open Discontinued Medications Generic Name Dose Route Start Last Admin Trade Name Freq PRN Reason Stop Dose Admin Albuterol/Ipratropium 3 ml 04/02/18 23:09 04/02/18 23:14 Duoneb 3.0-0.5 Mg/3 Ml NEB 04/02/18 23:10 3 ml ONETIME ONE Administration Azithromycin 500 mg 04/02/18 23:20 04/02/18 23:42 Zithromax PO 04/02/18 23:21 500 mg ONETIME ONE Administration Ceftriaxone Sodium 2 gm 04/02/18 23:19 04/02/18 23:42 Rocephin IVPUSH 04/02/18 23:20 2 gm STAT ONE Administration Methylprednisolone Sodium Succinate 125 mg 04/02/18 23:09 04/02/18 23:15 Solu-Medrol IV 04/02/18 23:10 125 mg ONETIME ONE Administration - Radiology Interpretation Free Text/Narrative:: L lower lobe infiltrate - Re-Assessments/Exams Free Text/Narrative Re-Assessment/Exam: 04/02/18 23:13 Pt was given a duoneb breathing treatment as well as solu medrol 125mg IV. To note, when she arrived to the ER, her oxygen tubing was kinked and not flowing. Her O2 sat was 79%. Pt. states that her baseline is approx. 88%. 2340Chest xray was reviewed. Pt. was given rocephin 2 gm IV and Azithromycin 500mg PO. 2345Pt. states that she feels much improved after the breathing treatment. Departure - Departure Time of Disposition: 00:24 Disposition: Admitted As Inpatient 67 Clinical Impression: Hypoxemia, Pneumonia, COPD exacerbation - Discharge Information Referrals: Elysia Coates MD [Primary Care Provider] - Forms: ED Department Discharge - Problem List Review Problem List Initiated/Reviewed/Updated: Yes - My Orders Last 24 Hours: My Active Orders 04/02/18 23:03 Cardiac Monitoring [RC] CONTINUOUS EKG Documentation Completion [RC] STAT Oxygen Therapy [RC] PRN Sodium Chloride 0.9% [Saline Flush] 10 ml FLUSH ASDIRECTED PRN 04/02/18 23:04 Chest 1V Frontal [CR] Stat INFLUENZA A+B AG SCREEN [RM] Stat UA W/MICROSCOPIC [URIN] Stat Blood Culture x2 Reflex Set [OM.PC] Stat Peripheral IV Insertion Adult [OM.PC] Routine 04/02/18 23:10 RT Aerosol Therapy [RC] ASDIRECTED 04/02/18 23:19 Dietary Supplements [RC] BIDMEALS 04/02/18 23:20 Dietary Supplements [RC] BIDMEALS 04/02/18 23:26 CULTURE SPUTUM + SMEAR [RM] Stat 04/02/18 23:35 CULTURE BLOOD [BC] Stat LACTIC ACID [CHEM] Stat 04/02/18 23:42 CULTURE BLOOD [BC] Stat 04/03/18 00:17 Patient Status [ADT] Routine - Assessment/Plan Admission H&P: Please use this note as an admission H&P Last 24 Hours: My Active Orders 04/02/18 23:03 Cardiac Monitoring [RC] CONTINUOUS EKG Documentation Completion [RC] STAT Oxygen Therapy [RC] PRN Sodium Chloride 0.9% [Saline Flush] 10 ml FLUSH ASDIRECTED PRN 04/02/18 23:04 Chest 1V Frontal [CR] Stat INFLUENZA A+B AG SCREEN [RM] Stat UA W/MICROSCOPIC [URIN] Stat Blood Culture x2 Reflex Set [OM.PC] Stat Peripheral IV Insertion Adult [OM.PC] Routine 04/02/18 23:10 RT Aerosol Therapy [RC] ASDIRECTED 04/02/18 23:19 Dietary Supplements [RC] BIDMEALS 04/02/18 23:20 Dietary Supplements [RC] BIDMEALS 04/02/18 23:26 CULTURE SPUTUM + SMEAR [RM] Stat 04/02/18 23:35 CULTURE BLOOD [BC] Stat LACTIC ACID [CHEM] Stat 04/02/18 23:42 CULTURE BLOOD [BC] Stat 04/03/18 00:17 Patient Status [ADT] Routine Plan: Pt. will be admitted acute, Dr. Coates attending and admitting. She is a code 1. This was discussed with the patient. Dr. Coates will round on the patient in the AM. She does meet sepsis criteria, has an elevated lactate and 22,000WBC. Will continue with IV Rocephin and oral azithromycin. Duoneb breathing treatments every 4 hours. Will continue with IV solu medrol. All questions were answered.
[2018-04-03 00:21] LABS: CHLORIDE,CL 98 mmol/L (98-107); SODIUM,NA 135 mmol/L (136-145)
[2018-04-03 00:23] LABS: ANION GAP 14.1 mmol/L (10-20)
[2018-04-03] MEDS ORDERED: Acetaminophen 500 MG Tab PO ONE (00:44)
[2018-04-03] MEDS ORDERED: Sodium Chloride 0.9% 1,000 ML IV ONE (01:06)
[2018-04-03] MEDS ORDERED: Lactated Ringers 1,000 ML IV SCH (01:15)
[2018-04-03] MEDS: Albuterol/Ipratropium 3.0-0.5 MG/3 ML Neb Soln NEB SCH ×6 (02:25→23:30)
[2018-04-03] MEDS ORDERED: guaiFENesin/Dextromethorphan 100-10 MG/5 ML Soln 10 ML Cup PO PRN (07:16)
[2018-04-03] MEDS ORDERED: Lisinopril 20 MG Tab PO SCH (08:00)
[2018-04-03] MEDS ORDERED: Potassium Chloride 10 MEQ Tab.ER PO SCH (08:00)
[2018-04-03] MEDS ORDERED: TIOTROPIUM INH SCH (08:00)
[2018-04-03] MEDS ORDERED: NIFEdipine 30 MG Tab.ER PO SCH (08:00)
[2018-04-03] MEDS ORDERED: SitaGLIPtin 25 MG Tab PO SCH (08:00)
[2018-04-03] MEDS: cloNIDine 0.1 MG Tab PO SCH (09:05)
[2018-04-03] MEDS: Magnesium Oxide 400 MG Tab PO SCH ×2 (09:05→19:57)
[2018-04-03] MEDS: Enoxaparin 40 MG/0.4 ML Syringe SUBCUT SCH (09:10)
[2018-04-03] MEDS: Sodium Chloride 0.9% 1,000 ML IV SCH ×3 (09:10→23:20)
[2018-04-03] MEDS: methylPREDNISolone Sodium Succinate 40 MG/1 ML SDV IVPUSH SCH ×2 (09:11→15:59)
[2018-04-03] MEDS: Insulin Lispro 100 Unit/ML 3 ML KwikPen SUBCUT SCH ×3 (09:11→18:06)
[2018-04-03] MEDS: Fluticasone-Salmeterol 232-14 MCG Powder Inhalent INH SCH ×2 (09:26→20:03)
[2018-04-03] MEDS: Azithromycin 250 MG Tab PO SCH (18:09)
[2018-04-03] MEDS: NIFEdipine 30 MG Tab.ER PO SCH (19:57)
[2018-04-03] MEDS: Lisinopril 20 MG Tab PO SCH (19:58)
[2018-04-03] MEDS: Simvastatin 10 MG Tab PO SCH (19:58)
[2018-04-03] MEDS: Potassium Chloride 10 MEQ Tab.ER PO SCH (19:58)
[2018-04-03] MEDS: SitaGLIPtin 25 MG Tab PO SCH (19:59)
[2018-04-03] MEDS: cefTRIAXone 2 GM Vial IVPUSH SCH (22:25)
[2018-04-03] MEDS: Sodium Chloride 0.9% 10 ML Syringe FLUSH PRN (22:25)
[2018-04-04] MEDS: methylPREDNISolone Sodium Succinate 40 MG/1 ML SDV IVPUSH SCH ×3 (00:30→19:59)
[2018-04-04] MEDS: Albuterol/Ipratropium 3.0-0.5 MG/3 ML Neb Soln NEB SCH ×6 (02:09→22:43)
[2018-04-04 07:49] LABS: CHLORIDE,CL 103 mmol/L (98-107); SODIUM,NA 137 mmol/L (136-145)
--- NOTE | 2018-04-04 08:02 | CR ---
[id number] RAD/RAD Chest PA or AP 1V EXAM: RAD Chest PA or AP 1V INDICATION: COUGH COMPARISON: CTA chest 08/14/2017, chest radiograph 08/14/2017. DISCUSSION: Cardiomediastinal silhouette is stable in size and contour. Central pulmonary vascular congestion with patchy opacification seen bilaterally, right greater than left. There is enlargement of the left hilum and to represent enlargement of the pulmonary artery. No pneumothorax. Pulmonary hyperinflation. IMPRESSION: Findings consistent with congestive heart failure exacerbation. Prominence of the left hilum may represent enlarged pulmonary artery however underlying lesion is not excluded. Follow-up imaging after appropriate therapy is recommended and if it persists a CT of the chest without contrast is recommended. Elliot Galindo DO 04/03/18 1000 Thank you for allowing us to participate in the care of your patient.
--- NOTE | 2018-04-04 08:02 | HP ---
CHIEF COMPLAINT: Cough. HISTORY OF PRESENT ILLNESS: The patient is a 73-year-old female with known alpha-1 antitrypsin deficiency with severe COPD, who has been having a productive cough for the past 3 days. She is oxygen-dependent at home. Often times, she will allow her oxygen to run low. To note, her sputum has gotten more yellowish in color. The patient does doctor with Pulmonology at [facility]. She does receive infusions for her alpha-1 antitrypsin deficiency per home health. The patient is on home nebs. The patient's commented that she has been a little more confused lately. She has not had much appetite, but she has not been nauseated or vomiting. To note, she had just seen myself in the clinic on 03/28/2018 and was doing quite well at that time. MEDICATIONS: She is currently on are: 1. Potassium chloride 10 mEq 1 pill daily. 2. Adalat CC 60 mg 1 pill daily. 3. Onglyza 5 mg 1 pill daily. 4. Hydrochlorothiazide 25 mg 1 pill daily. 5. Breo inhaler 200/25, 1 puff daily. 6. Glucophage 850 mg 1 pill twice a day. 7. Spiriva 18 mcg 1 capsule daily. 8. Zocor 10 mg 1 pill at bedtime. 9. Catapres 0.2 mg 1 pill daily. 10.Ramipril 10 mg 1 pill daily. 11.Albuterol MDI 2 puffs every 4 hours as needed. 12.Glassia 1000 mg per 50 mL solution. She gets a 1000 mg intravenously every Wednesday. 13.Albuterol nebs, 1 neb every 4 hours as needed. ALLERGIES: To glipizide. PAST MEDICAL HISTORY: The patient has alpha-1 antitrypsin deficiency, doctors with [facility]. She has type 2 diabetes mellitus. She has hypertension. She has severe COPD, hypercholesterolemia, hypertension, hypoxemia, and multiple lung nodules noted. She has had herpes zoster in the past. 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 She has had diverticulosis. She has had dermatoses on her emery from her diabetes. She has had a normal Cardiolite stress test on 07/16/2003. Ejection fraction was 65%. Then, repeat echo showed ejection fraction was 55% with mild diastolic dysfunction and mild mitral regurgitation. She has had senile osteoporosis, 08/30/2015 last DEXA scan. PAST SURGICAL HISTORY: She has had blepharoplasty bilaterally as well as cataract surgery. FAMILY MEDICAL HISTORY: Mother had hypertension as well as cerebrovascular disease, coronary artery disease. Father had hypoglycemia, possible COPD, and alpha-1 antitrypsin deficiency. SOCIAL HISTORY: She is . 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 She is on home oxygen, which she is borderline compliant with. REVIEW OF SYSTEMS: Significant productive coughing, feeling very weak, not much energy. No vomiting. No diarrhea. No swelling of her lower extremities. She has had small tremor with intention. She has had normal foot sensation. OBJECTIVE: Vital Signs: Objectively, her vital signs show that her temperature is 37.2, pulse 111, blood pressure is 93/50, respiratory rate 31, sats are 84 initially on 3 L. It did improve to 90% in the emergency room. GENERAL: Objectively, the patient is lying in the hospital bed. She is having frequent productive coughing. She appears weak. She does recognize who I am. She is fairly somewhat listless. Her pharynx is normal. HEART: Slightly tachycardic. Unable to hear murmurs. LUNGS: Reveal inspiratory crackles on left base. Abdomen: Soft and nontender. No hepatosplenomegaly. Extremities: Lower. Extremities, no edema. Neurologic: She is weak throughout. Psychiatric: She is vaguely confused. In the emergency department, she did receive a DuoNeb as well as Solu-Medrol 125 mg IV as well as Rocephin 2 g and Zithromax. She had improved greatly after her DuoNeb treatment. Her chest x-ray shows bilateral chronic lung changes. She does have infiltrate on the left mid lung. LABORATORY DATA: Showed a white blood cell count 22.2, hemoglobin 13.8, platelets 338 with 86 segs, 2 lymphs. INR was 1.0. Blood gases showed pH 7.41, pCO2 of 39, pO2 of 48, bicarb of 25, sats were 84 on 3 L. Her sodium was 135, potassium 4.1, chloride 98, carbon dioxide 27, anion gap 14.1, BUN 29, creatinine 1.1, GFR 49, glucose 189, lactic acid 2.2, calcium 9.2, phosphorus 2.6, magnesium 1.5, AST 17, ALT 24, alkaline phosphatase 119, total bilirubin 0.6. Troponin less than 0.017. CRP 15.8. ProBNP 297. Albumin is 2.9. EKG showed sinus tachycardia. IMPRESSION: 1. Systemic inflammatory response syndrome. 2. Left middle lobe pneumonia. 3. Severe chronic obstructive pulmonary disease. 4. Hypoxemia due to pneumonia and chronic underlying lung conditions. 5. Type 2 diabetes mellitus. 6. Dehydration. 7. Hypertension. 8. Hypercholesterolemia. 9. Osteoporosis. 10.Hypomagnesemia. PLAN: The patient will be admitted to acute care. She will continue with Rocephin and Zithromax for antibiotics. We will give IV hydration. The patient was on IV steroids. We will use CPT as well as use mucolytic with Robitussin. The patient will receive oral magnesium. We will hold her metformin right now since she is not eating as well. We will check her Accu-Cheks, and we will cover her with insulin if needed. The patient is code level 1 status. If her condition deteriorates, she may be need transfer. GM04/03/2018 07:28:11 MODL: 04/03/2018 12:45:43 /[id number]
[2018-04-04] MEDS: Magnesium Oxide 400 MG Tab PO SCH ×2 (08:30→19:58)
[2018-04-04] MEDS: Enoxaparin 40 MG/0.4 ML Syringe SUBCUT SCH (08:30)
[2018-04-04] MEDS: Insulin Lispro 100 Unit/ML 3 ML KwikPen SUBCUT SCH ×3 (08:37→18:06)
--- NOTE | 2018-04-04 08:51 | CR ---
[id number] RAD/RAD Chest PA And Lateral EXAM: RAD Chest PA And Lateral INDICATION: PNEUMONIA FOLLOW-UP. COMPARISON: April 02, 2018. DISCUSSION: Cardiomediastinal silhouette is stable in size and contour. Central pulmonary vascular congestion with patchy opacification seen bilaterally, right greater than left. Overall these changes are slightly improved when compared to the prior study. There is enlargement of the left hilum and to represent enlargement of the pulmonary artery. No pneumothorax. Pulmonary hyperinflation. IMPRESSION: Findings consistent with congestive heart failure exacerbation are slightly improved when compared to the prior. Prominence of the left hilum may represent enlarged pulmonary artery however underlying lesion is not excluded. Follow-up imaging after appropriate therapy is recommended and if it persists a CT of the chest without contrast is recommended. Elliot Galindo DO 04/04/18 0849 Thank you for allowing us to participate in the care of your patient.
[2018-04-04] MEDS: cloNIDine 0.1 MG Tab PO SCH ×2 (09:08→19:58)
[2018-04-04] MEDS ORDERED: Budesonide 0.5 MG/2 ML Neb Susp NEB SCH (10:25)
[2018-04-04] MEDS ORDERED: Arformoterol 15 MCG/2 ML Neb Soln NEB SCH (10:26)
[2018-04-04] MEDS: Fluticasone-Salmeterol 232-14 MCG Powder Inhalent INH SCH (10:47)
[2018-04-04] MEDS: Insulin Glargine,Human Rec. Analog 100 Units/ML 3 ML Pen SUBCUT SCH (13:10)
--- NOTE | 2018-04-04 13:33 | PN ---
Progress Note for KAY VAZQUEZ Date: 04/04/2018 Room #: VM.214 SUBJECTIVE: This is hospital day #2 on a 73-year-old, admitted with pneumonia with known underlying severe COPD in the setting of alpha-1 antitrypsin deficiency. The patient also had elevated white count and lactic acid, but she has been afebrile. She feels like her cough is improving. She does have oxygen at home, but she does not always wear it, and she is only on 1 to 2 L and now she has been requiring 3 to 4. She denies any pain. Her only concerns are about a tremor, which she has had for many months. She has not been on any steroids. OBJECTIVE: Vital Signs: Objectively today, her weight is 73.1 kg, temperature 97.6, pulse 96, blood pressure 119/67, respiratory rate 21, and O2 of 93% on 4 L. General: She is in no acute distress. HEART: Regular rate and rhythm. S1, S2 without murmur. LUNGS: Lung sounds are actually clear to auscultation bilaterally without crackles or wheezes. ABDOMEN: Nondistended and nontender. EXTREMITIES: Warm and dry. No edema. No calf tenderness. PSYCHIATRIC: She is alert and oriented x3. She recognizes me. IMAGING STUDIES: Telemetry reviewed. No adverse events noted, just some sinus tachycardia. ASSESSMENT AND PLAN: 1. Community-acquired pneumonia. Culture already growing Gram-negatives. She does have a history of Pseudomonas; however, she is clinically improving. At this point, I will continue the IV Rocephin and oral Zithromax, but very likely she will be discharged home on Levaquin as she has been treated with that in the past. 2. Diabetes type 2 with elevated blood sugars due to IV steroids. We will go ahead and start her on Lantus 5 units daily, because her metformin has been on hold due to acute illness and elevated lactic acid. 3. Severe chronic obstructive pulmonary disease with exacerbation due to pneumonia. She is on Solu-Medrol 40 q.8. I am going to decrease her to q.12 since she is clinically improving. Advair is not available to be given. Therefore, we will switch her over to Brovana and budesonide nebs. She also has DuoNeb scheduled. 4. Essential hypertension. Blood pressure is under good control. She is on hydrochlorothiazide. She does take clonidine at bedtime, and she is also on lisinopril and nifedipine. 5. Sepsis due to pneumonia with lactic acidosis. This is improving. I am going to stop her IV fluids. She is eating and drinking okay. 6. Acute on chronic hypoxic respiratory failure. We will continue to wean her back to her home oxygen. 7. Hypomagnesemia. She is on oral replacement. 8. Hyperlipidemia. 9. Osteoporosis. PLAN: At this point, the patient will continue acute cares. We will continue IV antibiotics. We will continue to follow the sputum culture. We will continue incentive spirometry nebs. We will get her up and moving around with therapies, anticipate that she will be able to be discharged as soon as tomorrow. For DVT prophylaxis, she is getting the Lovenox. We will repeat labs in the morning. MKA: 04/04/2018 12:56:11 MODL: 04/04/2018 13:27:41 /[id number]
[2018-04-04] MEDS: Azithromycin 250 MG Tab PO SCH (18:04)
[2018-04-04] MEDS: Budesonide 0.5 MG/2 ML Neb Susp NEB SCH (18:09)
[2018-04-04] MEDS: Arformoterol 15 MCG/2 ML Neb Soln NEB SCH (18:09)
[2018-04-04] MEDS: NIFEdipine 30 MG Tab.ER PO SCH (19:57)
[2018-04-04] MEDS: Lisinopril 20 MG Tab PO SCH (19:58)
[2018-04-04] MEDS: Potassium Chloride 10 MEQ Tab.ER PO SCH (19:58)
[2018-04-04] MEDS: Sodium Chloride 0.9% 10 ML Syringe FLUSH PRN (19:59)
[2018-04-04] MEDS: SitaGLIPtin 25 MG Tab PO SCH (19:59)
[2018-04-04] MEDS: cefTRIAXone 2 GM Vial IVPUSH SCH (22:44)
[2018-04-04] MEDS ORDERED: Acetaminophen 500 MG Tab PO STA (23:40)
[2018-04-05] MEDS: Albuterol/Ipratropium 3.0-0.5 MG/3 ML Neb Soln NEB SCH ×6 (02:26→22:45)
[2018-04-05] MEDS: Budesonide 0.5 MG/2 ML Neb Susp NEB SCH ×2 (06:34→18:09)
[2018-04-05] MEDS: Arformoterol 15 MCG/2 ML Neb Soln NEB SCH ×2 (06:35→18:09)
[2018-04-05 07:16] LABS: CHLORIDE,CL 102 mmol/L (98-107); SODIUM,NA 138 mmol/L (136-145)
[2018-04-05 07:18] LABS: ANION GAP 9.9 mmol/L (10-20)
--- NOTE | 2018-04-05 09:22 | CR ---
[id number] RAD/RAD Chest PA And Lateral EXAM: RAD Chest PA And Lateral INDICATION: PNEUMONIA. COMPARISON: April 04, 2018. DISCUSSION: Cardiomediastinal silhouette is stable in size and contour. Central pulmonary vascular congestion with patchy opacification seen bilaterally, right greater than left. Overall these changes are not changed when compared to the prior study. There is enlargement of the left hilum and to represent enlargement of the pulmonary artery. No pneumothorax. Pulmonary hyperinflation. Stable bullous disease at the right lung base. Stable left base pulmonary infiltrate. IMPRESSION: Stable chest without acute cardiopulmonary finding. Elliot Galindo DO 04/05/18 0919 Thank you for allowing us to participate in the care of your patient.
[2018-04-05] MEDS: methylPREDNISolone Sodium Succinate 40 MG/1 ML SDV IVPUSH SCH ×2 (09:33→20:15)
[2018-04-05] MEDS: Levofloxacin 500 MG Tab PO SCH (09:33)
[2018-04-05] MEDS: Enoxaparin 40 MG/0.4 ML Syringe SUBCUT SCH (09:34)
[2018-04-05] MEDS: Magnesium Oxide 400 MG Tab PO SCH ×2 (09:34→20:16)
[2018-04-05] MEDS: Hydrochlorothiazide 25 MG Tab PO SCH (09:34)
[2018-04-05] MEDS: Insulin Glargine,Human Rec. Analog 100 Units/ML 3 ML Pen SUBCUT SCH (09:36)
[2018-04-05] MEDS: Insulin Lispro 100 Unit/ML 3 ML KwikPen SUBCUT SCH ×3 (09:37→18:07)
--- NOTE | 2018-04-05 11:26 | PN ---
Progress Note for KAY VAZQUEZ Date: 04/05/2018 Room #: .[facility] HISTORY OF PRESENT ILLNESS: This is hospital day #3 on a 73-year-old, admitted with community-acquired pneumonia. The patient does have a history of Pseudomonas. She is growing Gram- negative rods. She has been afebrile now since admission. She is still having some shortness of breath. She does feel it is improving. She feels her cough is improving, but she is wheezing more this morning. She has severe COPD due to alpha-1 antitrypsin. She is supposed to use about 2.5 L of oxygen at home and is requiring 3 L here to stay about 90%. Otherwise, she did have some back pain last evening, was relieved by Tylenol. She feels it is just due to sitting up more in bed because she coughs more with lying flat. PHYSICAL EXAMINATION: Vital Signs: Her temperature this morning 97.6, pulse 87, blood pressure 116/74, respiratory rate 20, and O2 of 90% on 3 L. General: She is in no acute distress. Heart: Regular rate and rhythm. Lungs: Lung sounds do show some decreased air entry with expiratory wheezing, but no crackles were appreciated. Abdomen: Nondistended, nontender. Extremities: Warm and dry. She has no edema. Mental Status: She is alert. She is orientated x3. LABORATORY DATA: Her lab work does show white count continuing to improve down to 15.8, hemoglobin stable 11.6, platelets 240. Sodium 138, potassium 4.9, chloride 102, bicarb 31, BUN 20, creatinine 0.9, glucose 226, calcium 8.8. ASSESSMENT: 1. Community-acquired pneumonia growing Gram-negative rods. We will switch her over to oral Levaquin today and await further susceptibilities and identification of sputum. 2. Type 2 diabetes with hyperglycemia due to steroids. We will restart her metformin. She is also on Lantus 5 units daily. 3. Severe chronic obstructive pulmonary disease with exacerbation due to pneumonia. I am going to continue her on the 40 b.i.d. of Solu-Medrol. Hopefully switch over to oral for discharge tomorrow. 4. Essential hypertension. Blood pressures are under control on home medications. 5. Sepsis due to pneumonia, resolved. 6. Acute on chronic hypoxic respiratory failure. Chest x-ray will be repeated today. She is near her baseline oxygen. 7. Hypomagnesemia, on oral replacement. 8. Hyperlipidemia. 9. Osteoporosis. PLAN: At this point patient will continue acute cares. We will stop IV antibiotics and switch her over to oral Levaquin. We will order a flutter valve today. She is on Lovenox for DVT prophylaxis. We will continue IV steroids. Anticipate discharge home as soon as tomorrow. MKA: 04/05/2018 10:50:38 MODL: 04/05/2018 11:02:10 /[id number]
[2018-04-05] MEDS: NIFEdipine 30 MG Tab.ER PO SCH (20:12)
[2018-04-05] MEDS: cloNIDine 0.1 MG Tab PO SCH (20:14)
[2018-04-05] MEDS: SitaGLIPtin 25 MG Tab PO SCH (20:14)
[2018-04-05] MEDS: Lisinopril 20 MG Tab PO SCH (20:15)
[2018-04-05] MEDS: Sodium Chloride 0.9% 10 ML Syringe FLUSH PRN (20:15)
[2018-04-06] MEDS: Albuterol/Ipratropium 3.0-0.5 MG/3 ML Neb Soln NEB SCH ×6 (02:59→22:53)
[2018-04-06] MEDS: Levofloxacin 500 MG Tab PO SCH (06:33)
[2018-04-06] MEDS: Budesonide 0.5 MG/2 ML Neb Susp NEB SCH ×2 (06:34→18:26)
[2018-04-06] MEDS: Arformoterol 15 MCG/2 ML Neb Soln NEB SCH ×2 (06:34→18:26)
[2018-04-06 07:38] LABS: ANION GAP 9.4 mmol/L (10-20); CHLORIDE,CL 97 mmol/L (98-107); SODIUM,NA 137 mmol/L (136-145)
[2018-04-06] MEDS: predniSONE 20 MG Tab PO SCH (09:44)
[2018-04-06] MEDS: Magnesium Oxide 400 MG Tab PO SCH ×2 (09:44→21:07)
[2018-04-06] MEDS: Enoxaparin 40 MG/0.4 ML Syringe SUBCUT SCH (09:44)
[2018-04-06] MEDS: Hydrochlorothiazide 25 MG Tab PO SCH (09:44)
[2018-04-06] MEDS: Insulin Glargine,Human Rec. Analog 100 Units/ML 3 ML Pen SUBCUT SCH (09:46)
[2018-04-06] MEDS: Insulin Lispro 100 Unit/ML 3 ML KwikPen SUBCUT SCH ×3 (09:46→18:25)
[2018-04-06] MEDS: methylPREDNISolone Sodium Succinate 40 MG/1 ML SDV IVPUSH SCH (09:58)
--- NOTE | 2018-04-06 17:25 | PN ---
Progress Note for KAY VAZQUEZ Date: 04/06/2018 Room #: VM.214 SUBJECTIVE: This is hospital day #4 on a 73-year-old with alpha-1 antitrypsin deficiency, admitted for pneumonia. Overall, her breathing is improving. Her wheezing is better. She was getting IV steroids up until last night. She has been afebrile, but she just overall feels weak. She has not been up moving around much yet. She is still on oxygen 2.5 L, which is near her home dose. She is not having any pain. OBJECTIVE: Vital Signs: Her temperature is 97.5, weight 70.8 kg, pulse 89, blood pressure 116/63, respiratory rate 20, O2 98% on 3 L. General: She is in no acute distress. Heart: Regular rate and rhythm. S1, S2 without murmur. Lungs: Lung sounds are clear to auscultation bilaterally without crackles or wheezes. Abdomen: Nondistended, nontender. Extremities: Warm and dry. No edema. Mental Status: She is alert and orientated x3. LABORATORY DATA: Her lab work today does show her to have a white count that went up slightly from 15.8 to 16.7, platelets were 264, hemoglobin 12.6. Sodium 137, potassium 4.4, chloride 97, bicarb 35, BUN 20, creatinine 0.9, glucose 220, magnesium 1.6. ASSESSMENT AND PLAN: 1. Community-acquired pneumonia. She is growing Gram-negative rods. Final culture has not switched. She is now on Levaquin day #2. We will await further susceptibility. She does have a history of Pseudomonas. Antibiotic day #4. 2. Type 2 diabetes with hyperglycemia due to steroids. We are switching her over to prednisone. She is on metformin. She is on Lantus, but likely will not require that at home when off steroids. 3. Severe chronic obstructive pulmonary disease with exacerbation due to pneumonia. We will stop her IV Solu-Medrol and put her on oral. 4. Weakness and deconditioning. We will get her up and working with therapies and see if she is stable for discharge later. 5. Sepsis due to pneumonia, resolved. 6. Essential hypertension. Blood pressure is controlled. 7. Hypomagnesemia, on oral replacement. 8. Acute on chronic respiratory failure. Chest x-ray repeated yesterday looked good. She is on her home oxygen. 9. Alpha-1 antitrypsin deficiency, last infusion on 04/01. We will try to arrange to get it again this Wednesday. PLAN: She will continue acute cares. We will see how she does. May be discharge later today or probably tomorrow. For DVT prophylaxis, she is on Lovenox. MKA: 04/06/2018 17:04:34 MODL: 04/06/2018 17:22:00 /[id number]
[2018-04-06] MEDS: NIFEdipine 30 MG Tab.ER PO SCH (21:06)
[2018-04-06] MEDS: Lisinopril 20 MG Tab PO SCH (21:07)
[2018-04-06] MEDS: SitaGLIPtin 25 MG Tab PO SCH (21:07)
[2018-04-06] MEDS: Acetaminophen 500 MG Tab PO PRN ×2 (21:08)
[2018-04-06] MEDS: cloNIDine 0.1 MG Tab PO SCH (21:16)
[2018-04-07] MEDS: Albuterol/Ipratropium 3.0-0.5 MG/3 ML Neb Soln NEB SCH ×6 (02:53→23:27)
[2018-04-07] MEDS: Budesonide 0.5 MG/2 ML Neb Susp NEB SCH ×2 (06:43→18:49)
[2018-04-07] MEDS: Levofloxacin 500 MG Tab PO SCH (06:43)
[2018-04-07] MEDS: Arformoterol 15 MCG/2 ML Neb Soln NEB SCH ×2 (06:43→18:49)
[2018-04-07] MEDS: Hydrochlorothiazide 25 MG Tab PO SCH (07:40)
[2018-04-07] MEDS: Magnesium Oxide 400 MG Tab PO SCH ×2 (07:40→21:00)
[2018-04-07] MEDS: Enoxaparin 40 MG/0.4 ML Syringe SUBCUT SCH (07:40)
[2018-04-07] MEDS: predniSONE 20 MG Tab PO SCH (07:40)
[2018-04-07] MEDS: Insulin Glargine,Human Rec. Analog 100 Units/ML 3 ML Pen SUBCUT SCH ×2 (07:41→21:04)
[2018-04-07] MEDS: Insulin Lispro 100 Unit/ML 3 ML KwikPen SUBCUT SCH ×3 (07:44→18:48)
[2018-04-07] MEDS: SitaGLIPtin 25 MG Tab PO SCH (20:59)
[2018-04-07] MEDS: Lisinopril 20 MG Tab PO SCH (21:00)
[2018-04-07] MEDS: NIFEdipine 30 MG Tab.ER PO SCH (21:00)
[2018-04-07] MEDS: cloNIDine 0.1 MG Tab PO SCH (21:00)
[2018-04-07] MEDS: Simvastatin 10 MG Tab PO SCH (21:00)
[2018-04-07] MEDS: Sodium Chloride 0.9% 10 ML Syringe FLUSH PRN (21:05)
--- NOTE | 2018-04-08 02:26 | PN ---
Progress Note for KAY VAZQUEZ Date: 04/07/2018 Room #: VM.214 SUBJECTIVE: This is hospital day #5 on a 73-year-old with alpha-1 antitrypsin deficiency admitted with pneumonia and COPD exacerbation. We did switch her over to oral prednisone yesterday. She is on oral antibiotics. She is symptomatically improving, but her white count did go up to 19,000 and her blood sugars have been running quite high despite restarting metformin. She has been on Lantus 5 units daily, which is new for her. 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 She is using Brovana and Pulmicort now and normally was on Advair. She does not feel like she is getting it in at home. She is getting her Glassia infusions through [facility] in [place] once a week and they manage that. Otherwise, her cultures are still showing gram-negative rods with further susceptibility is not available. She has been afebrile. She has been up and moving around. She feels like her breathing is better. OBJECTIVE: Vital Signs: Her temperature 98.4, pulse 107, blood pressure 135/66, respiratory rate 20, and O2 90 on 2 L. She is on 2 L at home and 3 L with activity. General: She is in no acute distress. Heart: Regular rate and rhythm. Lungs: Sounds are clear to auscultation today without crackles or wheezes. Abdomen: Positive bowel sounds. Soft and nontender. Extremities: Warm and dry. No edema. Mental Status: She is alert. She is orientated x3. LABORATORY DATA: Lab work again, did go up white count today from 16.7 to 19.9, hemoglobin 12.7, and platelets 275. Other blood sugars have been 142, early this morning, 282 last evening, 352 yesterday afternoon. Bicarb yesterday was 35. ASSESSMENT: 1. Community-acquired pneumonia, on antibiotics, now day #3 for Levaquin, antibiotic day #5. The patient is clinically doing well, could go home on oral antibiotics; however[place], she is unable to return home and she has increasing white count, increasing blood sugars, still is getting some medication adjustments, so we will continue cares for another night. 2. Type 2 diabetes with hyperglycemia. I am going to increase the Lantus to 5 units b.i.d. We will do some insulin teaching and send her insulin home with her at least for the short-term until she gets off steroids. 3. Severe chronic obstructive pulmonary disease with exacerbation due to pneumonia. I have already put in a call to her Pulmonary at [facility]. We will probably send her home on the Brovana and budesonide instead of the Advair. We will continue prednisone. 4. Weakness and deconditioning. She was up working with therapies. We will continue to have her walking around in the halls. 5. Sepsis, resolved. 6. Essential hypertension. Blood pressure is slightly elevated to 153/90 at the highest, but earlier today was 106/70, so we will just continue to monitor. She is quite puffy from her fluid resuscitation, but she is back on her hydrochlorothiazide; so, this should improve over the next several days. 7. Hypomagnesemia, on oral replacement. 8. [id number] respiratory failure. She will continue oxygen. 9. Alpha-1 antitrypsin deficiency. Her next infusion will be as soon as tomorrow or Wednesday. PLAN: The patient will continue acute cares. We will increase insulin. We will repeat lab work in the morning. She will continue on Lovenox for DVT prophylaxis. MKA: 04/07/2018 17:31:14 MODL: 04/08/2018 02:17:33 /[id number]
--- NOTE | 2018-04-08 02:42 | PN ---
Progress Note for KAY VAZQUEZ Date: 04/07/2018 Room #: .[facility] HISTORY OF PRESENT ILLNESS: This is hospital day #5 on a 73-year-old with alpha- 1 antitrypsin deficiency, admitted with pneumonia and COPD exacerbation. We did switch her over to oral prednisone yesterday. She is on oral antibiotics. She is symptomatically improving, but her white count did go up to 19,000, and her blood sugars have been running quite high despite re-starting metformin. She has been on Lantus 5 units daily, which is new for her. 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 She is using Brovana and Pulmicort now, and normally was on Advair. She does not feel like she is getting it in at home. She is getting her Glassia infusions through Pulmonary in [place] once a week; they manage that. Otherwise, her culture is still showing Gram-negative rods. Further susceptibility is not available. She has been afebrile. She has been up moving around. She feels like her breathing is better. PHYSICAL EXAMINATION: Vital Signs: Objectively, her temperature is 98.4, pulse is 107, blood pressure is 135/66, respiratory rate is 20, and O2 is 90 on 2 L. She is on 2 L at home and 3 L with activity. General: She is in no acute distress. Heart: Regular rate and rhythm. Pulmonary: Lungs sounds are clear to auscultation today without crackles or wheezes. Gastrointestinal: Abdomen has positive bowel sounds. Soft and nontender. Extremities: Warm and dry. No edema. Neurological: Mental status, she is alert and she is orientated x3. LABORATORY DATA: Lab work again, did go up white count today from 16.7 and 19.9, hemoglobin of 12.7, and platelets of 275. Other blood sugars have been 142 early this morning, 282 last evening, and 352 yesterday afternoon. Bicarbonate yesterday was 35. ASSESSMENT AND PLAN: 1. Community-acquired pneumonia, on antibiotics now, day #3 for Levaquin, antibiotic day #5. The patient is clinically doing well and could go home on oral antibiotics. However, [place], she is unable to return home, and she has increasing white count and increasing blood sugars. She still is getting some medication adjustments, so we will continue cares for another night. 2. Type 2 diabetes with hyperglycemia. I am going to increase the Lantus to 5 units b.i.d. We will do some insulin teaching, and send her insulin home with her at least for the short term until she gets off steroids. 3. Severe chronic obstructive pulmonary disease with exacerbation due to pneumonia. I have already put in a call to her Pulmonary at [facility]. We will probably send her home on the Brovana and budesonide instead of the Advair. We will continue prednisone. 4. Weakness and deconditioning. She was up working with therapies. We will continue to have her walking around in the [place]hao. 5. Sepsis, resolved. 6. Essential hypertension. Blood pressure is slightly elevated to 153/90 at the highest, but earlier today was 106/70. So, we will just continue to monitor. She is quite puffy from her fluid resuscitation, but she is back on her hydrochlorothiazide. So, this should improve over the next several days. 7. Hypomagnesemia, on oral replacement. 8. Acute on chronic respiratory failure. She will continue oxygen. 9. Alpha 1 antitrypsin deficiency. Her next infusion will be as soon as tomorrow or Wednesday. The patient will continue acute cares. We will increase insulin. We will repeat laboratory work in the morning. She will continue on Lovenox for deep venous thrombosis prophylaxis. MKA: 04/07/2018 17:31:14 MODL: 04/08/2018 02:36:38 /[id number]
[2018-04-08] MEDS: Albuterol/Ipratropium 3.0-0.5 MG/3 ML Neb Soln NEB SCH ×3 (02:53→11:04)
[2018-04-08] MEDS: Levofloxacin 500 MG Tab PO SCH (06:05)
[2018-04-08] MEDS: Arformoterol 15 MCG/2 ML Neb Soln NEB SCH (06:53)
[2018-04-08] MEDS: Budesonide 0.5 MG/2 ML Neb Susp NEB SCH (06:53)
[2018-04-08 07:27] LABS: CHLORIDE,CL 97 mmol/L (98-107); SODIUM,NA 137 mmol/L (136-145)
[2018-04-08 07:29] LABS: ANION GAP 6.5 mmol/L (10-20)
[2018-04-08] MEDS: Enoxaparin 40 MG/0.4 ML Syringe SUBCUT SCH (08:21)
[2018-04-08] MEDS: Hydrochlorothiazide 25 MG Tab PO SCH (08:22)
[2018-04-08] MEDS: Magnesium Oxide 400 MG Tab PO SCH (08:22)
[2018-04-08] MEDS: predniSONE 20 MG Tab PO SCH (08:22)
[2018-04-08] MEDS: Insulin Glargine,Human Rec. Analog 100 Units/ML 3 ML Pen SUBCUT SCH (08:23)
[2018-04-08] MEDS: Insulin Lispro 100 Unit/ML 3 ML KwikPen SUBCUT SCH ×2 (08:24→12:14)
[2018-04-08 13:32] VITALS: BP 130/80
--- NOTE | 2018-04-09 10:35 | DISCH ---
PRIMARY DISCHARGE DIAGNOSES: 1. Community-acquired pneumonia of the right lower lobe. Cultures showing viridans Strep and gram-negative prabhjot. She does have a history of Pseudomonas and bronchiectasis. 2. Chronic obstructive pulmonary disease exacerbation with severe underlying chronic obstructive pulmonary disease due to pneumonia and alpha-1 antitrypsin deficiency. 3. Type 2 diabetes with hyperglycemia from steroids. 4. Weakness and deconditioning, improved with therapies. 5. Sepsis, resolved. 6. Essential hypertension. 7. Hypomagnesemia, on oral replacement. 8. Acute on chronic respiratory failure. She is back on her baseline oxygen. 9. Benign essential tremor. 10.Previous compression fracture of the spine. 11.Osteoporosis. 12.History of PMR. 13.Varicose veins without complication. 14.Hyperlipidemia. REASON FOR ADMISSION: On the date of admission, this 73-year-old female presented to the emergency room with increasing hypoxia, cough, shortness of breath, and increasing sputum production over several weeks. Her white count was found to be elevated up to 22,000. ABG showed O2 low at 48, but her pCO2 was 39. Her lactic acid was 2.2, going up to 3.3 before finally normalizing. She was admitted. She was placed on IV Rocephin and Zithromax, which was changed over to Levaquin on hospital day #2. She is on Levaquin day #6. This was done due to her ongoing symptoms and her history of Pseudomonas. She was also on IV steroids during her stay 40 three times a day, which was weaned down to Solu-Medrol IV twice a day, and ultimately she was switched over to 40 mg of prednisone yesterday morning and she was tolerating that, her wheezing was improving, she was getting regular nebs which she did not usually use at home, and her blood sugars were quite elevated, so we did have her on Lantus, which we had 10 units daily. Did restart her metformin. Still blood sugars were up as high as 354. Therefore, she was okay with going home with some insulin while she takes prednisone. Her troponin was negative when she was admitted. Her breathing gradually improved, but she felt weak. Therefore, she was up, she was working with therapies. White count did improve down to 19.6. On discharge, her potassium was 3.5. Her magnesium was replaced and did come up to 1.6. She remained on her home blood pressure medications during her stay. Kidney function was excellent. Otherwise, decision was made and discussion had with her director of graduate medical education to switch her from her Breo to Pulmicort and Brovana since that is what we were using for her in the hospital and it seemed to work better for her. He was in full agreement. She will also continue her Spiriva at home. She was on Lovenox during her stay for DVT prophylaxis. DISCHARGE PHYSICAL EXAMINATION: VITAL SIGNS: Her temperature is 98.1, pulse 106, blood pressure 137/81, respiratory rate 20, O2 94% on 3 L. The patient is supposed to be on 2 L at all times and 3 L with activity at home, but admits she is not always using it that much. HEART: Regular rate and rhythm. S1, S2 without murmur. LUNGS: Lung sounds were clear today to auscultation bilaterally without crackles or wheezes. ABDOMEN: Nondistended, nontender. EXTREMITIES: Warm and dry. Overall, her edema is improved, but she still has some edema on her right leg. She shows me a bruise that is from an injury from quite sometime ago. She has no calf tenderness and Homans sign is negative. DISCHARGE PLANS AND INSTRUCTIONS: The patient will follow up in the clinic with Dr. Coates in 1 to 2 weeks time. She will be on Lantus 5 units in the morning until she finishes her prednisone, which is 20 mg daily for 5 days. The pen was sent home from the hospital. She will be on Levaquin with the last dose tomorrow to complete a 7-day course. She will stop Breo and be on Brovana and Pulmicort instead. Her DuoNebs were switched over to regular albuterol. She was given a flutter valve and instructions on using incentive spirometry and she should continue that at home. She will also have a CBC, BMP, and magnesium in [address] Coates. None of her other chronic like hypertension medications were changed during her stay. Greater than 30 minutes were spent on this discharge process. The patient did have a slightly extended stay due to severe chronic obstructive pulmonary disease exacerbation. The patient was feeling better, but we felt it is best not to tyler her home due to ongoing acute cares and treatments, especially [place] and white count still up to 19,000. I think it was justifiable for her to continue the hospitalization. MKA: 04/08/2018 21:11:05 MODL: 04/09/2018 09:31:47 /[id number]
== END 2018-04-08 14:45 | disposition home or self-care (01) | DRG 871 ==
LOC: VM.ED 22:51 → SUPCPDRO 22:51 → VM.MS 04-03 00:30
PROVIDERS: ADMIT Family Medicine; ATTEND Family Medicine
DX: A41.9 Sepsis, unspecified organism (principal); J18.1 Lobar pneumonia, unspecified organism; J96.21 Acute and chronic respiratory failure with hypoxia; J44.1 Chronic obstructive pulmonary disease with (acute) exacerbation; J44.0 Chronic obstructive pulmonary disease with (acute) lower respiratory infection; E87.2 Acidosis; I10 Essential (primary) hypertension; E78.00 Pure hypercholesterolemia, unspecified; E83.42 Hypomagnesemia; M81.0 Age-related osteoporosis without current pathological fracture; E86.0 Dehydration; E11.65 Type 2 diabetes mellitus with hyperglycemia; T38.0X5A Adverse effect of glucocorticoids and synthetic analogues, initial encounter; E78.5 Hyperlipidemia, unspecified; E88.01 Alpha-1-antitrypsin deficiency; G25.0 Essential tremor; Z99.81 Dependence on supplemental oxygen; Z79.51 Long term (current) use of inhaled steroids
CPT/HCPCS: 36415; 36600; 71045; 71046; 80048; 80053; 81001; 82803; 82962; 83605; 83735; 83880; 84100; 84484; 85007; 85025; 85027; 85610; 86140; 87040; 87070; 87077; 87186; 87205; 87804; 87804-59; 93005; 93010; 94640; 94760; 96374; 96375; 97162-GP; 99284-GF; 99285; A9270-GY; J0696; J1650; J1815; J1815-GY; J2920; J2930; J7030; J7620-GY

== ENCOUNTER 2018-05-03 23:42 | Emergency (ER) | payer MEDICARE, BC ==
--- NOTE | 2018-05-04 00:37 | EDM.PDOC ---
ED HPI GENERAL MEDICAL PROBLEM - General Chief Complaint: Lower Extremity Injury/Pain Stated Complaint: Fall, right hip pain Time Seen by Provider: 05/03/18 23:42 Source of Information: Reports: Patient - History of Present Illness INITIAL COMMENTS - FREE TEXT/NARRATIVE: Patient comes into the emergency department with complaint of right hip pain. Patient sustained a fall at home require an ambulance transportation. Patient states that she was walking and tripped over from family. When she fell she instantly in noticed severe pain in the right hip. She was unable to get up on her own. Patient states that the sharpshooting sensation with movement. She is able to wiggle her toes without medications. She is unable to bear weight. Patient denies being on any blood thinners. She denies hitting her head, losing consciousness, abdominal pain, chest pain, or GI concerns. Orders were given to EMS to give 4mg Morphine and 4mg zofran prior to moving the patient at the seen due to the severe pain and discomfort. Pt noted significant relief and was able to be transported without incident. Onset: Sudden Location: Reports: Pelvis Quality: Reports: Sharp Severity: Severe Improves with: Reports: Immobilization Worsens with: Reports: Movement Context: Reports: Trauma Associated Symptoms: Reports: No Other Symptoms Treatments SENIOR DENTIST: Reports: IV/IO, Oxygen, Other (see below) Other Treatments SENIOR DENTIST: vacu splint Right hip Pain Score (Numeric/FACES): 7 - Related Data Allergies Allergy/AdvReac Type Severity Reaction Status Date / Time glipizide Allergy Itching Verified 05/04/18 00:12 Home Meds: Home Meds Albuterol [Proventil HFA] 2 puff INH Q4H PRN 05/05/16 [History] Hydrochlorothiazide 25 mg PO DAILY 05/05/16 [History] NIFEdipine [Adalat cc] 60 mg PO DAILY 05/05/16 [History] Ramipril [Altace] 10 mg PO DAILY 05/05/16 [History] Saxagliptin HCl [Onglyza] 5 mg PO DAILY 05/05/16 [History] Simvastatin [Zocor] 10 mg PO BEDTIME 05/05/16 [History] cloNIDine HCl [Catapres] 0.2 mg PO DAILY 05/05/16 [History] Albuterol [Proventil Neb Soln] 2.5 mg INH BID PRN 08/14/17 [History] Hdxas-7-Hnbhpvxbfk Inhibitor [Glassia] 1,000 mg IV MO 04/03/18 [History] Potassium Chloride 10 meq PO DAILY 04/03/18 [History] Tiotropium [Spiriva Handihaler] 1 puff INH DAILY 04/03/18 [History] metFORMIN HCl [Metformin HCl] 850 mg PO BID 04/03/18 [History] Albuterol [Proventil Neb Soln] 2.5 mg NEB Q4H PRN #120 neb 04/08/18 [Rx] Arformoterol [Brovana] 15 mcg NEB BID@0700,1900 #60 neb 04/08/18 [Rx] Budesonide [Pulmicort] 0.5 mg NEB BID@0700,1900 #60 neb 04/08/18 [Rx] Insulin Glarg,Human.Rec.Analog [Lantus Solostar] 5 units SUBCUT DAILY #1 pen 10/17 [Rx] Magnesium Oxide 400 mg PO DAILY #30 tablet 04/08/18 [Rx] levoFLOXacin [Levaquin] 500 mg PO DAILY@0700 #1 tablet 04/08/18 [Rx] predniSONE 20 mg PO WITHBREAKFAST #5 tablet 04/08/18 [Rx] Past Medical History HEENT History: Reports: Other (See Below) Other HEENT History: conjunctival hemorrhage Cardiovascular History: Reports: High Cholesterol, Hypertension, SOB on Exertion , Other (See Below) Other Cardiovascular History: varicose veins Respiratory History: Reports: COPD, Other (See Below) Other Respiratory History: alpha-1 anti-trypsin deficiency, panlobular emphysema , pulmonary nodules, bronchiectasis Gastrointestinal History: Reports: Diverticulosis 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 herpes zoster. compression fx 12th thoracic vertebra Endocrine/Metabolic History: Reports: Diabetes, Type II, Osteoporosis Hematologic History: Reports: None Other Hematologic History: apla 1 deficiency Immunologic History: Reports: None Oncologic (Cancer) History: Reports: None Dermatologic History: Reports: None - Infectious Disease History Infectious Disease History: Reports: None - Past Surgical History HEENT Surgical History: Reports: Cataract Surgery, Other (See Below) Other HEENT Surgeries/Procedures: bilateral blepharoplasty Social & Family History - Family History Family Medical History: Noncontributory Cardiac: Reports: Heart Failure Neurological: Reports: CVA - Caffeine Use Caffeine Use: Reports: Soda - Living Situation & Occupation Living situation: Reports: , with Significant Other 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[email or web address]) Review of Systems - Review of Systems Review Of Systems: See Below Constitutional: Reports: No Symptoms Eyes: Reports: No Symptoms Ears: Reports: No Symptoms Nose: Reports: No Symptoms Mouth/Throat: Reports: No Symptoms Respiratory: Reports: No Symptoms Cardiovascular: Reports: No Symptoms GI/Abdominal: Reports: No Symptoms Genitourinary: Reports: No Symptoms Musculoskeletal: Reports: Leg Pain Skin: Reports: No Symptoms Neurological: Reports: No Symptoms Psychiatric: Reports: No Symptoms ED EXAM, GENERAL - Physical Exam Exam: See Below Exam Limited By: No Limitations General Appearance: Alert, WD/WN, No Apparent Distress Course - Vital Signs Last Recorded V/S: Last Vital Signs Temp 36.3 C 05/03/18 23:42 Pulse 90 05/03/18 23:42 Resp 16 05/03/18 23:42 BP 118/47 L 05/03/18 23:42 Pulse Ox 88 L 05/03/18 23:42 - Orders/Labs/Meds Orders: Active Orders 24 hr Category Date Time Status EKG Documentation Completion [RC] STAT Care 05/03/18 23:56 Active Hip Min 1V Rt [CR] Stat Exams 05/03/18 23:47 Taken COMPREHENSIVE METABOLIC PN,CMP [CHEM] Stat Lab 05/03/18 23:56 Ordered INR,PT,PROTHROMBIN TIME [COAG] Stat Lab 05/03/18 23:56 Ordered PRO B-TYPE NATRIUR PEPT,BNPPRO [CHEM] Stat Lab 05/03/18 23:56 Ordered Labs: Laboratory Tests 05/04/18 Range/Units 00:10 WBC 10.5 H (4.0-10.0) x10^3/uL RBC 4.17 (4.00-5.50) x10^6/uL Hgb 12.4 (12.0-16.0) g/dL Hct 38.5 (33.0-47.0) % MCV 92.3 (78.0-93.0) fL MCH 29.7 (26.0-32.0) pg MCHC 32.2 (32.0-36.0) g/dL RDW Coeff of Jose 14.1 (10.0-15.0) % Plt Count 272 (130-400) x10^3/uL Neut % (Auto) 76.1 (50.0-80.0) % Lymph % (Auto) 12.0 L (25.0-50.0) % [place] % (Auto) 9.0 (2.0-11.0) % Eos % (Auto) 2.5 (0.0-4.0) % Baso % (Auto) 0.4 (0.2-1.2) % Departure - Departure Time of Disposition: 12:56 Disposition: Home, Self-Care 01 Condition: Fair Clinical Impression: Femoral neck fracture Qualifiers: Encounter type: initial encounter Fracture type: closed Laterality: right Qualified Code(s): S72.001A - Fracture of unspecified part of neck of right femur, initial encounter for closed fracture Fracture of superior pubic ramus Qualifiers: Encounter type: initial encounter Fracture type: closed Laterality: right Qualified Code(s): S32.511A - Fracture of superior rim of right pubis, initial encounter for closed fracture - Discharge Information *PRESCRIPTION DRUG MONITORING PROGRAM REVIEWED*: Not Applicable *COPY OF PRESCRIPTION DRUG MONITORING REPORT IN PATIENT ANA: Not Applicable Forms: ED Department Discharge, Interfacility Transfer EMTALA - My Orders Last 24 Hours: My Active Orders 05/03/18 23:47 Hip Min 1V Rt [CR] Stat 05/03/18 23:56 EKG Documentation Completion [RC] STAT COMPREHENSIVE METABOLIC PN,CMP [CHEM] Stat INR,PT,PROTHROMBIN TIME [COAG] Stat PRO B-TYPE NATRIUR PEPT,BNPPRO [CHEM] Stat - Assessment/Plan Last 24 Hours: My Active Orders 05/03/18 23:47 Hip Min 1V Rt [CR] Stat 05/03/18 23:56 EKG Documentation Completion [RC] STAT COMPREHENSIVE METABOLIC PN,CMP [CHEM] Stat INR,PT,PROTHROMBIN TIME [COAG] Stat PRO B-TYPE NATRIUR PEPT,BNPPRO [CHEM] Stat Assessment:: 1. right impacted femoral neck fracture 2. Acute displaced fracture of the right superior pubic ramus Plan: 1. Labs completed in ER. Results discussed with the pt. 2. X-ray completed in ER. Results discussed with the pt. 3. EKG completed in ER. 4. Online orders given to EMS to provide 4mg morphine and 4mg zofran. Pain under control with medication management. 5. Consult completed with Dr. Stevenson Ervin who is willing to accept pt as acute care transfer. Pt will be transferred by ambulance. 6. All questions and concerns addressed prior to discharge. 7. Morphine 2mg given for comfort measures with transport.
[2018-05-04 00:45] LABS: CHLORIDE,CL 102 mmol/L (98-107); SODIUM,NA 141 mmol/L (136-145)
[2018-05-04 00:59] VITALS: BP 132/71
[2018-05-04] MEDS: Morphine 2 MG/ML Syringe IVPUSH ONE (01:28)
[2018-05-04] MEDS: Ondansetron 4 MG/2 ML SDV IVPUSH ONE (01:50)
--- NOTE | 2018-05-04 08:16 | CR ---
[id number] RAD/RAD Hip Right 1V EXAM: 2 VIEWS RIGHT HIP. INDICATION: HIP PAIN/FALL. COMPARISON: None. DISCUSSION: Acute impacted right subcapital femoral neck fracture. Additionally there is medial displacement of the distal fracture fragment. There is a minimally displaced fracture involving the right superior pubic ramus. Additionally there may be a nondisplaced fracture of the inferior pubic ramus. IMPRESSION: 1. As above. Elliot Galindo DO 05/04/18 0815 Thank you for allowing us to participate in the care of your patient.
== END 2018-05-04 01:55 | disposition home or self-care (01) ==
LOC: VM.ED 23:42
DX: S72.011A Unspecified intracapsular fracture of right femur, initial encounter for closed fracture (principal); E11.9 Type 2 diabetes mellitus without complications; I10 Essential (primary) hypertension; Z79.899 Other long term (current) drug therapy; Z88.8 Allergy status to other drugs, medicaments and biological substances; Z79.4 Long term (current) use of insulin; W19.XXXA Unspecified fall, initial encounter; Y92.009 Unspecified place in unspecified non-institutional (private) residence as the place of occurrence of the external cause
CPT/HCPCS: 36415; 80053; 83880; 85025; 85610; 93005; 96374; 96375; 99283-GF; 99285-25; J2270; J2405

== ENCOUNTER 2018-07-29 16:02 | Inpatient (IN) | payer MEDICARE, BC ==
[2018-07-29] MEDS ORDERED: cefTRIAXone 2 GM Vial IVPUSH ONE (16:37)
[2018-07-29] MEDS ORDERED: Azithromycin 500 MG in Sodium Chloride 0.9% 250 ML IV ONE (16:39)
[2018-07-29] MEDS ORDERED: methylPREDNISolone Sodium Succinate 125 MG/2 ML SDV IV ONE (16:42)
--- NOTE | 2018-07-29 17:02 | CR ---
[id number] RAD/RAD Chest PA or AP 1V EXAM: SINGLE VIEW CHEST. INDICATION: SHORTNESS OF BREATH COMPARISON: CORRELATION IS MADE WITH THE EXAM OF APRIL 05, 2018. CORRELATION IS MADE WITH THE CAT SCAN OF AUGUST 14, 2017. FINDINGS: Extensive pre-existing interstitial lung disease again is seen. This is best identified on the CAT scan of August 14, 2017. The cardiomediastinal contour is stable. There is no pneumothorax IMPRESSION: EXTENSIVE PRE-EXISTING INTERSTITIAL DISEASE. NO NEW FINDINGS. George Bhatia MD 07/29/18 2354 Thank you for allowing us to participate in the care of your patient.
[2018-07-29 17:37] LABS: ANION GAP 13.1 mmol/L (10-20); CHLORIDE,CL 98 mmol/L (98-107); SODIUM,NA 138 mmol/L (136-145)
--- NOTE | 2018-07-29 17:40 | EDM.PDOC ---
ED HPI GENERAL MEDICAL PROBLEM - General Chief Complaint: Respiratory Problem Stated Complaint: short of breath Time Seen by Provider: 07/29/18 16:10 Source of Information: Reports: Patient History Limitations: Reports: No Limitations - History of Present Illness INITIAL COMMENTS - FREE TEXT/NARRATIVE: Pt. presents to ER with complaints of increased shortness of breath. Pt. was initially seen in clinic and was brought over to ER. Pt. states that she has a productive cough and chest congestion as well. She is on home O2 at 4L/min at home and states that her typical O2 sat is around 87%. Pt. states that he cough is productive of greenish sputum. Denies any substernal chest discomfort. She has felt chilled. No nausea or vomiting. Pt. has a history of alpha 1 antitrypsin. She has been hospitalized numerous times for this in both [place] as well as this facility. She is a code level 1. Onset Date: 07/28/18 Location: Reports: Chest, Generalized Associated Symptoms: Reports: Fever/Chills - Related Data Allergies Allergy/AdvReac Type Severity Reaction Status Date / Time glipizide Allergy Itching Verified 07/29/18 16:10 Home Meds: Home Meds Albuterol [Proventil HFA] 2 puff INH Q4H PRN 05/05/16 [History] Hydrochlorothiazide 25 mg PO DAILY 05/05/16 [History] NIFEdipine [Adalat cc] 60 mg PO DAILY 05/05/16 [History] Ramipril [Altace] 10 mg PO DAILY 05/05/16 [History] Saxagliptin HCl [Onglyza] 5 mg PO DAILY 05/05/16 [History] Simvastatin [Zocor] 10 mg PO BEDTIME 05/05/16 [History] cloNIDine HCl [Catapres] 0.2 mg PO DAILY 05/05/16 [History] Albuterol [Proventil Neb Soln] 2.5 mg INH BID PRN 08/14/17 [History] Iffmf-5-Fblwzkuydm Inhibitor [Glassia] 1,000 mg IV MO 04/03/18 [History] Potassium Chloride 10 meq PO DAILY 04/03/18 [History] Tiotropium [Spiriva Handihaler] 1 puff INH DAILY 04/03/18 [History] metFORMIN HCl [Metformin HCl] 850 mg PO BID 04/03/18 [History] Albuterol [Proventil Neb Soln] 2.5 mg NEB Q4H PRN #120 neb 04/08/18 [Rx] Arformoterol [Brovana] 15 mcg NEB BID@0700,1900 #60 neb 04/08/18 [Rx] Budesonide [Pulmicort] 0.5 mg NEB BID@0700,1900 #60 neb 04/08/18 [Rx] Insulin Glarg,Human.Rec.Analog [Lantus Solostar] 5 units SUBCUT DAILY #1 pen 10/17 [Rx] Magnesium Oxide 400 mg PO DAILY #30 tablet 04/08/18 [Rx] levoFLOXacin [Levaquin] 500 mg PO DAILY@0700 #1 tablet 04/08/18 [Rx] predniSONE 20 mg PO WITHBREAKFAST #5 tablet 04/08/18 [Rx] Past Medical History HEENT History: Reports: Other (See Below) Other HEENT History: conjunctival hemorrhage Cardiovascular History: Reports: High Cholesterol, Hypertension, SOB on Exertion , Other (See Below) Other Cardiovascular History: varicose veins Respiratory History: Reports: COPD, Other (See Below) Other Respiratory History: alpha-1 anti-trypsin deficiency, panlobular emphysema , pulmonary nodules, bronchiectasis Gastrointestinal History: Reports: Diverticulosis 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 herpes zoster. compression fx 12th thoracic vertebra Endocrine/Metabolic History: Reports: Diabetes, Type II, Osteoporosis Hematologic History: Reports: None Other Hematologic History: apla 1 deficiency Immunologic History: Reports: None Oncologic (Cancer) History: Reports: None Dermatologic History: Reports: None - Infectious Disease History Infectious Disease History: Reports: None - Past Surgical History HEENT Surgical History: Reports: Cataract Surgery, Other (See Below) Other HEENT Surgeries/Procedures: bilateral blepharoplasty Social & Family History - Family History Family Medical History: Noncontributory Cardiac: Reports: Heart Failure Neurological: Reports: CVA - Tobacco Use Smoking Status *Q: Never Smoker - Caffeine Use Caffeine Use: Reports: Soda - Living Situation & Occupation Living situation: Reports: , with Significant 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 GENERAL - Review of Systems Review Of Systems: See Below Constitutional: Reports: No Symptoms HEENT: Reports: No Symptoms Respiratory: Reports: Shortness of Breath, Wheezing, Cough, Sputum Cardiovascular: Reports: No Symptoms Endocrine: Reports: No Symptoms GI/Abdominal: Reports: No Symptoms : Reports: No Symptoms Musculoskeletal: Reports: No Symptoms Skin: Reports: No Symptoms Neurological: Reports: No Symptoms Psychiatric: Reports: No Symptoms Hematologic/Lymphatic: Reports: No Symptoms Immunologic: Reports: No Symptoms ED EXAM, GENERAL - Physical Exam Exam: See Below Exam Limited By: No Limitations General Appearance: Alert, WD/WN, No Apparent Distress Eye Exam: Bilateral Eye: EOMI, PERRL Throat/Mouth: Normal Inspection, Normal Lips, Normal Teeth, Normal Gums, Normal Oropharynx, Normal Voice, No Airway Compromise Head: Atraumatic, Normocephalic Neck: Normal Inspection, Supple, Non-Tender, Full Range of Motion Respiratory/Chest: Respiratory Distress, Decreased Breath Sounds, Wheezing Cardiovascular: Normal Peripheral Pulses, Regular Rate, Rhythm, No Edema, No JVD , No Murmur GI/Abdominal: Normal Bowel Sounds, Soft, Non-Tender, No Organomegaly, No Distention, No Abnormal Bruit, No Mass (Female) Exam: Deferred Rectal (Female) Exam: Deferred Back Exam: Normal Inspection, Full Range of Motion Extremities: Normal Inspection, Normal Range of Motion, Non-Tender, No Pedal Edema, Normal Capillary Refill Neurological: Alert, Oriented, CN II-XII Intact, Normal Cognition, Normal Gait, Normal Reflexes, No Motor/Sensory Deficits Psychiatric: Normal Affect, Normal Mood Skin Exam: Warm, Dry, Intact, No Rash, Pallor Lymphatic: No Adenopathy EKG INTERPRETATION Rhythm: NSR [place]: Normal P-Wave: Present QRS: Normal ST-T: Normal QT: Normal Course - Vital Signs Last Recorded V/S: Last Vital Signs Temp 39.2 C H 07/29/18 16:10 Pulse 122 H 07/29/18 16:10 Resp 22 H 07/29/18 16:10 BP 161/93 H 07/29/18 16:10 Pulse Ox 87 L 07/29/18 16:10 - Orders/Labs/Meds Orders: Active Orders 24 hr Category Date Time Status Patient Status [ADT] Routine ADT 07/29/18 17:15 Active EKG Documentation Completion [RC] STAT Care 07/29/18 16:03 Active COMPREHENSIVE METABOLIC PN,CMP [CHEM] Stat Lab 07/29/18 16:28 Received CRP [C-REACTIVE PROTEIN] [CHEM] Stat Lab 07/29/18 16:28 Received CULTURE BLOOD [BC] Stat Lab 07/29/18 16:04 Received CULTURE BLOOD [BC] Stat Lab 07/29/18 16:28 Received MAGNESIUM [CHEM] Stat Lab 07/29/18 16:28 Received PHOSPHORUS [CHEM] Stat Lab 07/29/18 16:28 Received PRO B-TYPE NATRIUR PEPT,BNPPRO [CHEM] Stat Lab 07/29/18 16:28 Received TROPONIN I [CHEM] Stat Lab 07/29/18 16:28 Received Azithromycin [Zithromax] 500 mg Med 07/29/18 16:39 Active Sodium Chloride 0.9% [Normal Saline] 250 ml IV STAT Sodium Chloride 0.9% [Saline Flush] Med 07/29/18 16:02 Active 10 ml FLUSH ASDIRECTED PRN Blood Culture x2 Reflex Set [OM.PC] Stat Oth 07/29/18 16:03 Ordered Peripheral IV Insertion Adult [OM.PC] Routine Oth 07/29/18 16:03 Ordered Medication Orders Azithromycin 500 mg/ Sodium (Chloride) 250 mls @ 250 mls/hr IV STAT ONE Stop: 07/29/18 17:38 Sodium Chloride (Saline Flush) 10 ml FLUSH ASDIRECTED PRN PRN Reason: Keep Vein Open Labs: Laboratory Tests 07/29/18 07/29/18 07/29/18 Range/Units 16:28 16:28 16:28 WBC 13.2 H (4.0-10.0) x10^3/uL RBC 4.64 (4.00-5.50) x10^6/uL Hgb 14.1 D (12.0-16.0) g/dL Hct 42.5 (33.0-47.0) % MCV 91.6 (78.0-93.0) fL MCH 30.4 (26.0-32.0) pg MCHC 33.2 (32.0-36.0) g/dL RDW Coeff of Jose 13.1 (10.0-15.0) % Plt Count 228 (130-400) x10^3/uL Neut % (Auto) 88.6 H (50.0-80.0) % Lymph % (Auto) 1.9 L (25.0-50.0) % [place] % (Auto) 9.1 (2.0-11.0) % Eos % (Auto) 0.2 (0.0-4.0) % Baso % (Auto) 0.2 (0.2-1.2) % PT 11.0 (10.0-12.8) SEC INR 1.0 L (2.0-3.5) Lactic Acid 1.2 (0.4-2.0) mmol/L Meds: Medications Generic Name Dose Route Start Last Admin Trade Name Freq PRN Reason Stop Dose Admin Azithromycin 500 mg/ Sodium 250 mls @ 250 mls/hr 07/29/18 16:39 Chloride IV 07/29/18 17:38 STAT ONE Sodium Chloride 10 ml 07/29/18 16:02 Saline Flush FLUSH ASDIRECTED PRN Keep Vein Open Discontinued Medications Generic Name Dose Route Start Last Admin Trade Name Freq PRN Reason Stop Dose Admin Ceftriaxone Sodium 2 gm 07/29/18 16:37 07/29/18 16:49 Rocephin IVPUSH 07/29/18 16:38 2 gm STAT ONE Administration Methylprednisolone Sodium Succinate 125 mg 07/29/18 16:42 07/29/18 17:32 Solu-Medrol IV 07/29/18 16:43 125 mg ONETIME ONE Administration - Radiology Interpretation Free Text/Narrative:: extensive interstitial lung disease, no obvious infiltrate at this time. Departure - Departure Time of Disposition: 17:44 Disposition: Admitted As Inpatient 67 Clinical Impression: Pneumonia, COPD exacerbation - Discharge Information - Problem List Review Problem List Initiated/Reviewed/Updated: Yes - My Orders Last 24 Hours: My Active Orders 07/29/18 16:02 Sodium Chloride 0.9% [Saline Flush] 10 ml FLUSH ASDIRECTED PRN 07/29/18 16:03 EKG Documentation Completion [RC] STAT Blood Culture x2 Reflex Set [OM.PC] Stat Peripheral IV Insertion Adult [OM.PC] Routine 07/29/18 16:04 CULTURE BLOOD [BC] Stat 07/29/18 16:28 COMPREHENSIVE METABOLIC PN,CMP [CHEM] Stat CRP [C-REACTIVE PROTEIN] [CHEM] Stat CULTURE BLOOD [BC] Stat MAGNESIUM [CHEM] Stat PHOSPHORUS [CHEM] Stat PRO B-TYPE NATRIUR PEPT,BNPPRO [CHEM] Stat TROPONIN I [CHEM] Stat 07/29/18 16:39 Azithromycin [Zithromax] 500 mg Sodium Chloride 0.9% [Normal Saline] 250 ml IV STAT 07/29/18 17:15 Patient Status [ADT] Routine - Assessment/Plan Last 24 Hours: My Active Orders 07/29/18 16:02 Sodium Chloride 0.9% [Saline Flush] 10 ml FLUSH ASDIRECTED PRN 07/29/18 16:03 EKG Documentation Completion [RC] STAT Blood Culture x2 Reflex Set [OM.PC] Stat Peripheral IV Insertion Adult [OM.PC] Routine 07/29/18 16:04 CULTURE BLOOD [BC] Stat 07/29/18 16:28 COMPREHENSIVE METABOLIC PN,CMP [CHEM] Stat CRP [C-REACTIVE PROTEIN] [CHEM] Stat CULTURE BLOOD [BC] Stat MAGNESIUM [CHEM] Stat PHOSPHORUS [CHEM] Stat PRO B-TYPE NATRIUR PEPT,BNPPRO [CHEM] Stat TROPONIN I [CHEM] Stat 07/29/18 16:39 Azithromycin [Zithromax] 500 mg Sodium Chloride 0.9% [Normal Saline] 250 ml IV STAT 07/29/18 17:15 Patient Status [ADT] Routine Plan: Pt. will be admitted acute. She states that she feels better after a nebulizer treatment. She is maintaining O2 sats of 90% on 6 L/min of O2. She was given solu medrol 125mg IV, rocephin 2 gm IV, and azithromycin 500mg IV. She states that she wishes to be a code 1, but requested not to be transferred to [place]. She was informed that this may happen if her symptoms get worse. All questions were answered.
[2018-07-29] MEDS: Sodium Chloride 0.9% 10 ML Syringe FLUSH PRN (18:18)
[2018-07-29] MEDS: methylPREDNISolone Sodium Succinate 40 MG/1 ML SDV IVPUSH SCH (22:00)
[2018-07-29] MEDS: Enoxaparin 40 MG/0.4 ML Syringe SUBCUT SCH (22:00)
[2018-07-30] MEDS: Albuterol/Ipratropium 3.0-0.5 MG/3 ML Neb Soln NEB SCH ×8 (01:31→22:56)
[2018-07-30] MEDS: methylPREDNISolone Sodium Succinate 40 MG/1 ML SDV IVPUSH SCH ×4 (04:32→22:56)
[2018-07-30 08:03] LABS: CHLORIDE,CL 102 mmol/L (98-107); SODIUM,NA 139 mmol/L (136-145)
[2018-07-30 08:05] LABS: ANION GAP 11.8 mmol/L (10-20)
[2018-07-30] MEDS ORDERED: Albuterol 0.083% 2.5 MG/3 ML Neb Soln NEB PRN (08:11)
[2018-07-30] MEDS ORDERED: Take Home: Albuterol 6.7 GM Inhaler, 1 Inhaler Pack INH PRN (08:11)
[2018-07-30] MEDS: Arformoterol 15 MCG/2 ML Neb Soln NEB SCH ×2 (08:42→19:59)
[2018-07-30] MEDS: Enoxaparin 40 MG/0.4 ML Syringe SUBCUT SCH (08:42)
[2018-07-30] MEDS: Sodium Chloride 0.9% 10 ML Syringe FLUSH PRN ×2 (08:42→22:56)
[2018-07-30] MEDS: cefTRIAXone 2 GM Vial IVPUSH SCH (08:43)
[2018-07-30] MEDS: Azithromycin 250 MG Tab PO SCH (08:43)
[2018-07-30] MEDS: Budesonide 0.5 MG/2 ML Neb Susp NEB SCH ×2 (08:43→19:59)
[2018-07-30] MEDS: Hydrochlorothiazide 25 MG Tab PO SCH (09:03)
--- NOTE | 2018-07-30 10:03 | PCM.PN ---
- General Info Date of Service: 07/30/18 Admission Dx/Problem (Free Text): 1. COPD exacerbation 2. Pneumonia Subjective Update: Pt. presents to ER with complaints of increased shortness of breath. Pt. was initially seen in clinic and was brought over to ER. Pt. states that she has a productive cough and chest congestion as well. She is on home O2 at 4L/min at home and states that her typical O2 sat is around 87%. Pt. states that he cough is productive of greenish sputum. Patient had neb treatments, labs, xray, and antibiotics given in the ER. She was admitted late yesterday with COPD exacerbation and pneumonia. Pt was admitted to acute care. Day 2: Pt is feeling much better today. She denies being short of breath and is maintaining her O2 Saturation with 6L/min. She has tolerated breakfast without difficulty. Will restart her home medications this am. Plan for today will be to wean O2 consumption back to the patients baseline. Functional Status: Reports: Pain Controlled, Tolerating Diet, Ambulating - Review of Systems General: Reports: No Symptoms HEENT: Reports: No Symptoms Pulmonary: Reports: No Symptoms Cardiovascular: Reports: No Symptoms Gastrointestinal: Reports: No Symptoms Genitourinary: Reports: No Symptoms Musculoskeletal: Reports: No Symptoms Skin: Reports: No Symptoms Neurological: Reports: No Symptoms Psychiatric: Reports: No Symptoms - Patient Data Vitals - Most Recent: Last Vital Signs Temp 36.6 C 07/30/18 06:00 Pulse 84 07/30/18 06:00 Resp 16 07/30/18 06:00 BP 143/75 H 07/30/18 06:00 Pulse Ox 93 L 07/30/18 06:00 Weight - Most Recent: 69.003 kg I&O - Last 24 Hours: Intake & Output 07/29/18 07/30/18 07/30/18 22:59 06:59 14:59 Intake Total 540 Output Total 500 700 Balance -500 -700 540 Lab Results Last 24 Hours: Laboratory Results - last 24 hr 07/29/18 07/29/18 07/29/18 Range/Units 16:28 16:28 16:28 WBC 13.2 H (4.0-10.0) x10^3/uL RBC 4.64 (4.00-5.50) x10^6/uL Hgb 14.1 D (12.0-16.0) g/dL Hct 42.5 (33.0-47.0) % MCV 91.6 (78.0-93.0) fL MCH 30.4 (26.0-32.0) pg MCHC 33.2 (32.0-36.0) g/dL RDW Coeff of Jose 13.1 (10.0-15.0) % Plt Count 228 (130-400) x10^3/uL Neut % (Auto) 88.6 H (50.0-80.0) % Lymph % (Auto) 1.9 L (25.0-50.0) % [place] % (Auto) 9.1 (2.0-11.0) % Eos % (Auto) 0.2 (0.0-4.0) % Baso % (Auto) 0.2 (0.2-1.2) % PT 11.0 (10.0-12.8) SEC INR 1.0 L (2.0-3.5) Sodium 138 (136-145) mmol/L Potassium 4.1 (3.5-5.1) mmol/L Chloride 98 (98-107) mmol/L Carbon Dioxide 31 (21-32) mmol/L Anion Gap 13.1 (10-20) mmol/L BUN 20 H (7-18) mg/dL Creatinine 0.8 (0.55-1.02) mg/dL Est Cr Clr Drug Dosing TNP Estimated GFR (MDRD) > 60 Glucose 157 H (74-106) mg/dL POC Glucose (74-106) mg/dL Lactic Acid (0.4-2.0) mmol/L Calcium 9.3 (8.5-10.1) mg/dL Corrected Calcium 9.78 (8.5-10.1) mg/dL Phosphorus 3.5 (2.6-4.7) mg/dL Magnesium 1.7 L (1.8-2.4) mg/dL Total Bilirubin 0.4 (0.2-1.0) mg/dL AST 22 (15-37) U/L ALT 28 (14-59) U/L Alkaline Phosphatase 119 H (46-116) U/L Troponin I < 0.017 (<=0.056) ng/mL C-Reactive Protein 1.7 H (<=0.9) mg/dL NT-Pro-B Natriuret Pep 329 H (<=125) pg/mL Total Protein 7.9 (6.4-8.2) g/dL Albumin 3.4 (3.4-5.0) g/dL Globulin 4.5 Albumin/Globulin Ratio 0.76 07/29/18 07/30/18 07/30/18 Range/Units 16:28 06:47 07:13 WBC 7.5 (4.0-10.0) x10^3/uL RBC 4.34 (4.00-5.50) x10^6/uL Hgb 13.0 (12.0-16.0) g/dL Hct 39.5 (33.0-47.0) % MCV 91.0 (78.0-93.0) fL MCH 30.0 (26.0-32.0) pg MCHC 32.9 (32.0-36.0) g/dL RDW Coeff of Jose 12.9 (10.0-15.0) % Plt Count 214 (130-400) x10^3/uL Neut % (Auto) 88.7 H (50.0-80.0) % Lymph % (Auto) 6.0 L (25.0-50.0) % [place] % (Auto) 5.2 (2.0-11.0) % Eos % (Auto) 0.0 (0.0-4.0) % Baso % (Auto) 0.1 L (0.2-1.2) % PT (10.0-12.8) SEC INR (2.0-3.5) Sodium (136-145) mmol/L Potassium (3.5-5.1) mmol/L Chloride (98-107) mmol/L Carbon Dioxide (21-32) mmol/L Anion Gap (10-20) mmol/L BUN (7-18) mg/dL Creatinine (0.55-1.02) mg/dL Est Cr Clr Drug Dosing Estimated GFR (MDRD) Glucose (74-106) mg/dL POC Glucose 168 H (74-106) mg/dL Lactic Acid 1.2 (0.4-2.0) mmol/L Calcium (8.5-10.1) mg/dL Corrected Calcium (8.5-10.1) mg/dL Phosphorus (2.6-4.7) mg/dL Magnesium (1.8-2.4) mg/dL Total Bilirubin (0.2-1.0) mg/dL AST (15-37) U/L ALT (14-59) U/L Alkaline Phosphatase (46-116) U/L Troponin I (<=0.056) ng/mL C-Reactive Protein (<=0.9) mg/dL NT-Pro-B Natriuret Pep (<=125) pg/mL Total Protein (6.4-8.2) g/dL Albumin (3.4-5.0) g/dL Globulin Albumin/Globulin Ratio 07/30/18 07/30/18 Range/Units 07:13 07:13 WBC (4.0-10.0) x10^3/uL RBC (4.00-5.50) x10^6/uL Hgb (12.0-16.0) g/dL Hct (33.0-47.0) % MCV (78.0-93.0) fL MCH (26.0-32.0) pg MCHC (32.0-36.0) g/dL RDW Coeff of Jose (10.0-15.0) % Plt Count (130-400) x10^3/uL Neut % (Auto) (50.0-80.0) % Lymph % (Auto) (25.0-50.0) % [place] % (Auto) (2.0-11.0) % Eos % (Auto) (0.0-4.0) % Baso % (Auto) (0.2-1.2) % PT (10.0-12.8) SEC INR (2.0-3.5) Sodium 139 (136-145) mmol/L Potassium 3.8 (3.5-5.1) mmol/L Chloride 102 (98-107) mmol/L Carbon Dioxide 29 (21-32) mmol/L Anion Gap 11.8 (10-20) mmol/L BUN 17 (7-18) mg/dL Creatinine 0.7 (0.55-1.02) mg/dL Est Cr Clr Drug Dosing 62.73 Estimated GFR (MDRD) > 60 Glucose 191 H (74-106) mg/dL POC Glucose (74-106) mg/dL Lactic Acid 0.9 (0.4-2.0) mmol/L Calcium 8.7 (8.5-10.1) mg/dL Corrected Calcium 9.58 (8.5-10.1) mg/dL Phosphorus (2.6-4.7) mg/dL Magnesium (1.8-2.4) mg/dL Total Bilirubin 0.2 (0.2-1.0) mg/dL AST 26 (15-37) U/L ALT 41 (14-59) U/L Alkaline Phosphatase 104 (46-116) U/L Troponin I (<=0.056) ng/mL C-Reactive Protein 4.1 H (<=0.9) mg/dL NT-Pro-B Natriuret Pep (<=125) pg/mL Total Protein 7.2 (6.4-8.2) g/dL Albumin 2.9 L (3.4-5.0) g/dL Globulin 4.3 Albumin/Globulin Ratio 0.67 Med Orders - Current: Current Medications Albuterol (Proventil Neb Soln) 2.5 mg NEB Q4H PRN PRN Reason: Cough Albuterol/Ipratropium (Duoneb 3.0-0.5 Mg/3 Ml) 3 ml NEB Q4HRRT [facility] Last Admin: 07/30/18 06:48 Dose: 3 ml Arformoterol Tartrate (Brovana) 15 mcg NEB BID@0700,1900 [facility] Last Admin: 07/30/18 08:42 Dose: 15 mcg Aspirin (Halfprin) 81 mg PO ASDIRECTED [facility] Azithromycin (Zithromax) 500 mg PO DAILY [facility] Last Admin: 07/30/18 08:43 Dose: 500 mg Budesonide (Pulmicort) 0.5 mg NEB BID@0700,1900 [facility] Last Admin: 07/30/18 08:43 Dose: 0.5 mg Ceftriaxone Sodium (Rocephin) 2 gm IVPUSH DAILY [facility] Last Admin: 07/30/18 08:43 Dose: 2 gm Enoxaparin Sodium (Lovenox) 40 mg SUBCUT DAILY [facility] Last Admin: 07/30/18 08:42 Dose: 40 mg Guaifenesin (Mucinex) 600 mg PO BID [facility] Hydrochlorothiazide (Hydrochlorothiazide) 25 mg PO DAILY [facility] Last Admin: 07/30/18 09:03 Dose: 25 mg Magnesium Oxide (Magnesium Oxide) 400 mg PO BEDTIME [facility] Metformin HCl (Glucophage) 850 mg PO DAILY [facility] Last Admin: 07/30/18 09:03 Dose: 850 mg Methylprednisolone Sodium Succinate (Solu-Medrol) 40 mg IVPUSH Q6H [facility] Last Admin: 07/30/18 09:00 Dose: 40 mg Non-Formulary Medication ([id number]-7-Rkxgbthyar Inhibitor [Glassia]) 4,000 mg IV Q7D [facility] Non-Formulary Medication (Clonidine Hcl [Catapres]) 0.2 mg PO BEDTIME [facility] Non-Formulary Medication (Nifedipine [Adalat Cc]) 60 mg PO BEDTIME [facility] Non-Formulary Medication (Ramipril [Altace]) 10 mg PO BEDTIME [facility] Non-Formulary Medication (Saxagliptin Hcl [Onglyza]) 5 mg PO BEDTIME [facility] Non-Formulary Medication (Tiotropium [Spiriva Handihaler]) 1 puff INH BEDTIME [facility] Simvastatin (Zocor) 10 mg PO BEDTIME [facility] Sodium Chloride (Saline Flush) 10 ml FLUSH ASDIRECTED PRN PRN Reason: Keep Vein Open Last Admin: 07/30/18 08:42 Dose: 10 ml Discontinued Medications Albuterol (Take Home: Albuterol 6.7 Gm, 1 Inh Pack) packet INH Q4H PRN PRN Reason: Shortness of Breath Azithromycin (Zithromax) 500 mg PO DAILY [facility] Ceftriaxone Sodium (Rocephin) 2 gm IVPUSH STAT ONE Stop: 07/29/18 16:38 Last Admin: 07/29/18 16:49 Dose: 2 gm Azithromycin 500 mg/ Sodium (Chloride) 250 mls @ 250 mls/hr IV STAT ONE Stop: 07/29/18 17:38 Last Admin: 07/29/18 18:18 Dose: 250 mls/hr Methylprednisolone Sodium Succinate (Solu-Medrol) 125 mg IV ONETIME ONE Stop: 07/29/18 16:43 Last Admin: 07/29/18 17:32 Dose: 125 mg - Exam Quality Assessment: Supplemental Oxygen General: Alert, Oriented, Cooperative, No Acute Distress HEENT: Pupils Equal, Pupils Reactive, Mucous Membr. Moist/[place] Neck: Supple Lungs: Decreased Breath Sounds Cardiovascular: Regular Rate, Regular Rhythm GI/Abdominal Exam: Normal Bowel Sounds, Soft, Non-Tender, No Distention Extremities: Normal Inspection, Normal Range of Motion, No Pedal Edema, Normal Capillary Refill - Problem List & Annotations (1) COPD exacerbation SNOMED Code(s): 144395020 Code(s): J44.1 - CHRONIC OBSTRUCTIVE PULMONARY DISEASE W (ACUTE) EXACERBATION Status: Acute Current Visit: Yes Annotation/Comment:: Chest pain felt to be secondary to COPD exacerbation given history of severe COPD and improvement with nebs and steroids. Evaluation in the ER for other causes (ACS, CHF, d-dimer, anemia, and electrolyte disturbance) was negative. Her chest pain had resolved by the time she got up to the floor and remained resolved overnight. She is feeling well this morning and has been weaned back to her usual oxygen dosing. She was given parenteral steroids in the ER and then started on prednisone. DuoNebs have also been scheduled overnight. She was not given antibiotics as she had 0/3 cardinal symptoms for COPD exacerbation and history was not consistent with pneumonia either. WBC and CRP both normal this am so she also will not be discharged on antibiotics. Did offer to keep her 1 more night mainly related to the increase in creatinine but she declined and prefers to be dismissed home with close outpatient follow-up. (2) Respiratory failure with hypoxia SNOMED Code(s): 49959983651706799 Code(s): J96.91 - RESPIRATORY FAILURE, UNSPECIFIED WITH HYPOXIA Status: Acute Current Visit: No Qualifiers: Chronicity: acute on chronic Qualified Code(s): J96.21 - Acute and chronic respiratory failure with hypoxia Annotation/Comment:: Patient initially requiring 4L to maintain saturations but has been weaned to her usual 2L. There was an issue yesterday with the batteries for her oxygen and that is now resolved today. Otherwise, plan as above. (3) Pneumonia SNOMED Code(s): 653200354 Code(s): J18.9 - PNEUMONIA, UNSPECIFIED ORGANISM Status: Acute Current Visit: Yes Qualifiers: Pneumonia type: due to unspecified organism Laterality: unspecified laterality - Problem List Review Problem List Initiated/Reviewed/Updated: Yes - My Orders Last 24 Hours: My Active Orders 07/30/18 08:11 Albuterol [Proventil Neb Soln] 2.5 mg NEB Q4H PRN 07/30/18 08:15 Aspirin [Halfprin] 81 mg PO ASDIRECTED hydroCHLOROthiazide 25 mg PO DAILY metFORMIN [Glucophage] 850 mg PO DAILY 07/30/18 08:30 Arformoterol [Brovana] 15 mcg NEB BID@0700,1900 07/30/18 08:45 Budesonide [Pulmicort] 0.5 mg NEB BID@0700,1900 07/30/18 20:00 Magnesium Oxide 400 mg PO BEDTIME NIFEdipine [Adalat cc] 60 mg PO BEDTIME Ramipril [Altace] 10 mg PO BEDTIME Saxagliptin HCl [Onglyza] 5 mg PO BEDTIME Simvastatin [Zocor] 10 mg PO BEDTIME Tiotropium [Spiriva Handihaler] 1 puff INH BEDTIME cloNIDine HCl [Catapres] 0.2 mg PO BEDTIME guaiFENesin [Mucinex] 600 mg PO BID 08/01/18 08:00 Jxgzg-4-Dtkmfgkjum Inhibitor [Glassia] 4,000 mg IV Q7D - Assessment Assessment:: Pt continues to require above her baseline consumption of O2. Will continue to challenge as patients status tolerates. Ambulation is encouraged, diet, and medications as ordered. Pt continues to be a full code but does not want to be transferred to a higher level of care. - Plan Plan:: 1. COPD exacerbation - Continue nebs as needed - restart home medications to help with shelter managment of COPD - Continues O2 monitoring and O2 supplementation to keeps saturations above 92 % - Continue Solumedrol dosing - Labs are ordered - X-ray was ordered from the ER for today. Waiting on results 2. Pneumonia - Continue antibiotic treatment. Rocephin and Zithromax - O2 supplementation to keep saturations above 92% - Xray was ordered from the ER for today. Waiting on results - Labs continue to show improvement will reorder for the am. - IV fluids/maintenance running. Pt continues to show improvement. Plan it to continue abx treatment, DVT prophylaxis, increase ambulation today in the hzao, and decrease O2 consumption if she tolerates. Patient remains a code 1.
[2018-07-30] MEDS: Ipratropium 0.02% 0.5 MG/2.5 ML Neb Soln INH SCH (11:39)
--- NOTE | 2018-07-30 12:05 | CR ---
[id number] RAD/RAD Chest PA or AP 1V EXAM: SINGLE VIEW CHEST. INDICATION: FEVER AND CHILLS COMPARISON: CORRELATION IS MADE WITH THE EXAM OF JULY 29, 2018. FINDINGS: A pre-existing abnormal interstitial chronic fibrotic pattern is seen. There is some accentuation of this pattern at least on the left. The cardiomediastinal contour is stable. 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 QUESTION OF SUPERIMPOSED ACUTE INTERSTITIAL INFILTRATE IN [place]. CONSIDER FURTHER FOLLOW-UP. George Bhatia MD 07/30/18 [id number] Thank you for allowing us to participate in the care of your patient.
[2018-07-30] MEDS: Aspirin 81 MG Tab.EC PO SCH (12:09)
[2018-07-30] MEDS: Lactobacillus Rhamnosus GG (Probiotic) Cap PO SCH ×2 (12:20→19:59)
[2018-07-30] MEDS ORDERED: Azithromycin 250 MG Tab PO SCH (16:00)
[2018-07-30] MEDS ORDERED: cefTRIAXone 2 GM Vial IVPUSH SCH (16:00)
[2018-07-30] MEDS: NIFEdipine 30 MG Tab.ER PO SCH (19:59)
[2018-07-30] MEDS: guaiFENesin 600 MG Tab.ER PO SCH (19:59)
[2018-07-30] MEDS: Simvastatin 10 MG Tab PO SCH (20:00)
[2018-07-30] MEDS: Lisinopril 20 MG Tab PO SCH (20:00)
[2018-07-30] MEDS: cloNIDine 0.1 MG Tab PO SCH (20:00)
[2018-07-30] MEDS: Magnesium Oxide 400 MG Tab PO SCH (20:00)
[2018-07-31] MEDS: methylPREDNISolone Sodium Succinate 40 MG/1 ML SDV IVPUSH SCH ×4 (03:22→21:08)
[2018-07-31] MEDS: Sodium Chloride 0.9% 10 ML Syringe FLUSH PRN ×5 (03:23→19:14)
[2018-07-31] MEDS: Albuterol/Ipratropium 3.0-0.5 MG/3 ML Neb Soln NEB SCH ×6 (03:23→23:48)
[2018-07-31] MEDS: Budesonide 0.5 MG/2 ML Neb Susp NEB SCH ×2 (06:49→18:29)
[2018-07-31] MEDS: Arformoterol 15 MCG/2 ML Neb Soln NEB SCH ×2 (06:49→19:13)
[2018-07-31] MEDS: Hydrochlorothiazide 25 MG Tab PO SCH (07:33)
[2018-07-31] MEDS: guaiFENesin 600 MG Tab.ER PO SCH ×2 (07:33→19:21)
[2018-07-31] MEDS: Lactobacillus Rhamnosus GG (Probiotic) Cap PO SCH ×2 (07:34→19:15)
[2018-07-31] MEDS: Azithromycin 250 MG Tab PO SCH (07:34)
[2018-07-31] MEDS: cefTRIAXone 2 GM Vial IVPUSH SCH (07:34)
[2018-07-31] MEDS: Enoxaparin 40 MG/0.4 ML Syringe SUBCUT SCH (07:34)
[2018-07-31 07:43] LABS: CHLORIDE,CL 99 mmol/L (98-107); SODIUM,NA 137 mmol/L (136-145)
[2018-07-31 07:45] LABS: ANION GAP 10.1 mmol/L (10-20)
--- NOTE | 2018-07-31 08:53 | PCM.PN ---
- General Info Date of Service: 07/31/18 Admission Dx/Problem (Free Text): 1. COPD exacerbation 2. Pneumonia Subjective Update: Pt. presents to ER with complaints of increased shortness of breath. Pt. was initially seen in clinic and was brought over to ER. Pt. states that she has a productive cough and chest congestion as well. She is on home O2 at 4L/min at home and states that her typical O2 sat is around 87%. Pt. states that he cough is productive of greenish sputum. Patient had neb treatments, labs, xray, and antibiotics given in the ER. She was admitted late yesterday with COPD exacerbation and pneumonia. Pt was admitted to acute care. Day 2: Pt is feeling much better today. She denies being short of breath and is maintaining her O2 Saturation with 6L/min. She has tolerated breakfast without difficulty. Will restart her home medications this am. Plan for today will be to wean O2 consumption back to the patients baseline. Day 3: Pt continues to feel better. She had an uneventful night. O2 Saturation is at 4L/min; tolerated her meals yesterday without concern; no fever or episodes of SOB. Functional Status: Reports: Pain Controlled, Tolerating Diet, Incentive Spirometry - Review of Systems General: Reports: No Symptoms HEENT: Reports: No Symptoms Pulmonary: Reports: Shortness of Breath, Cough Cardiovascular: Reports: No Symptoms Gastrointestinal: Reports: No Symptoms Musculoskeletal: Reports: No Symptoms Skin: Reports: No Symptoms Neurological: Reports: No Symptoms Psychiatric: Reports: No Symptoms - Patient Data Vitals - Most Recent: Last Vital Signs Temp 36.6 C 07/31/18 06:00 Pulse 99 07/31/18 06:00 Resp 18 07/31/18 06:00 BP 125/71 07/31/18 06:00 Pulse Ox 90 L 07/31/18 08:00 Weight - Most Recent: 69.003 kg I&O - Last 24 Hours: Intake & Output 07/30/18 07/31/18 07/31/18 22:59 06:59 14:59 Intake Total 420 500 540 Output Total 200 200 Balance 220 300 540 Lab Results Last 24 Hours: Laboratory Results - last 24 hr 07/30/18 07/30/18 07/30/18 Range/Units 11:38 17:07 23:00 WBC (4.0-10.0) x10^3/uL RBC (4.00-5.50) x10^6/uL Hgb (12.0-16.0) g/dL Hct (33.0-47.0) % MCV (78.0-93.0) fL MCH (26.0-32.0) pg MCHC (32.0-36.0) g/dL RDW Coeff of Jose (10.0-15.0) % Plt Count (130-400) x10^3/uL Neut % (Auto) (50.0-80.0) % Lymph % (Auto) (25.0-50.0) % [place] % (Auto) (2.0-11.0) % Eos % (Auto) (0.0-4.0) % Baso % (Auto) (0.2-1.2) % Sodium (136-145) mmol/L Potassium (3.5-5.1) mmol/L Chloride (98-107) mmol/L Carbon Dioxide (21-32) mmol/L Anion Gap (10-20) mmol/L BUN (7-18) mg/dL Creatinine (0.55-1.02) mg/dL Est Cr Clr Drug Dosing mL/min Estimated GFR (MDRD) Glucose (74-106) mg/dL POC Glucose 272 H 195 H 321 H (74-106) mg/dL Calcium (8.5-10.1) mg/dL Corrected Calcium (8.5-10.1) mg/dL Total Bilirubin (0.2-1.0) mg/dL AST (15-37) U/L ALT (14-59) U/L Alkaline Phosphatase (46-116) U/L Total Protein (6.4-8.2) g/dL Albumin (3.4-5.0) g/dL Globulin Albumin/Globulin Ratio 07/31/18 07/31/18 07/31/18 Range/Units 06:46 07:09 07:09 WBC 13.1 H (4.0-10.0) x10^3/uL RBC 4.38 (4.00-5.50) x10^6/uL Hgb 13.2 (12.0-16.0) g/dL Hct 40.2 (33.0-47.0) % MCV 91.8 (78.0-93.0) fL MCH 30.1 (26.0-32.0) pg MCHC 32.8 (32.0-36.0) g/dL RDW Coeff of Jose 13.0 (10.0-15.0) % Plt Count 228 (130-400) x10^3/uL Neut % (Auto) 91.6 H (50.0-80.0) % Lymph % (Auto) 3.4 L (25.0-50.0) % Florence % (Auto) 5.0 (2.0-11.0) % Eos % (Auto) 0.0 (0.0-4.0) % Baso % (Auto) 0.0 L (0.2-1.2) % Sodium 137 (136-145) mmol/L Potassium 4.1 (3.5-5.1) mmol/L Chloride 99 (98-107) mmol/L Carbon Dioxide 32 (21-32) mmol/L Anion Gap 10.1 (10-20) mmol/L BUN 20 H (7-18) mg/dL Creatinine 0.9 (0.55-1.02) mg/dL Est Cr Clr Drug Dosing 48.79 mL/min Estimated GFR (MDRD) > 60 Glucose 235 H (74-106) mg/dL POC Glucose 219 H (74-106) mg/dL Calcium 9.0 (8.5-10.1) mg/dL Corrected Calcium 9.80 (8.5-10.1) mg/dL Total Bilirubin 0.2 (0.2-1.0) mg/dL AST 23 (15-37) U/L ALT 51 (14-59) U/L Alkaline Phosphatase 103 (46-116) U/L Total Protein 7.2 (6.4-8.2) g/dL Albumin 3.0 L (3.4-5.0) g/dL Globulin 4.2 Albumin/Globulin Ratio 0.71 Isai Results Last 24 Hours: Microbiology 07/29/18 16:28 Aerobic Blood Culture - Preliminary Blood - Venous NO GROWTH AFTER 1 DAY Anaerobic Blood Culture - Preliminary NO GROWTH AFTER 1 DAY 07/29/18 16:37 Aerobic Blood Culture - Preliminary Blood - Venous - Lab Draw NO GROWTH AFTER 1 DAY Anaerobic Blood Culture - Preliminary NO GROWTH AFTER 1 DAY Med Orders - Current: Current Medications Albuterol (Proventil Neb Soln) 2.5 mg NEB Q4H PRN PRN Reason: Cough Albuterol/Ipratropium (Duoneb 3.0-0.5 Mg/3 Ml) 3 ml NEB Q4HRRT [facility] Last Admin: 07/31/18 06:49 Dose: 3 ml Arformoterol Tartrate (Brovana) 15 mcg NEB BID@0700,1900 [facility] Last Admin: 07/31/18 06:49 Dose: 15 mcg Aspirin (Halfprin) 81 mg PO Q2D [facility] Last Admin: 07/30/18 12:09 Dose: 81 mg Azithromycin (Zithromax) 500 mg PO DAILY [facility] Last Admin: 07/31/18 07:34 Dose: 500 mg Budesonide (Pulmicort) 0.5 mg NEB BID@0700,1900 [facility] Last Admin: 07/31/18 06:49 Dose: 0.5 mg Ceftriaxone Sodium (Rocephin) 2 gm IVPUSH DAILY [facility] Last Admin: 07/31/18 07:34 Dose: 2 gm Clonidine HCl (Catapres) 0.2 mg PO BEDTIME [facility] Last Admin: 07/30/18 20:00 Dose: 0.2 mg Enoxaparin Sodium (Lovenox) 40 mg SUBCUT DAILY [facility] Last Admin: 07/31/18 07:34 Dose: 40 mg Guaifenesin (Mucinex) 600 mg PO BID [facility] Last Admin: 07/31/18 07:33 Dose: 600 mg Hydrochlorothiazide (Hydrochlorothiazide) 25 mg PO DAILY [facility] Last Admin: 07/31/18 07:33 Dose: 25 mg Ipratropium [place] (Atrovent) 0.5 mg INH QIDRT [facility] Last Admin: 07/30/18 11:39 Dose: Not Given Lactobacillus Rhamnosus (Culturelle) 1 cap PO BID [facility] Last Admin: 07/31/18 07:34 Dose: 1 cap Lisinopril (Prinivil) 20 mg PO BEDTIME [facility] Last Admin: 07/30/18 20:00 Dose: 20 mg Magnesium Oxide (Magnesium Oxide) 400 mg PO BEDTIME [facility] Last Admin: 07/30/18 20:00 Dose: 400 mg Metformin HCl (Glucophage) 850 mg PO DAILY [facility] Last Admin: 07/31/18 07:34 Dose: 850 mg Methylprednisolone Sodium Succinate (Solu-Medrol) 40 mg IVPUSH Q6H [facility] Last Admin: 07/31/18 03:22 Dose: 40 mg Nifedipine (Procardia Xl) 60 mg PO BEDTIME [facility] Last Admin: 07/30/18 19:59 Dose: 60 mg Non-Formulary Medication (Vqfbr-6-Cjvomunrox Inhibitor [Glassia]) 4,000 mg IV Q7D [facility] Simvastatin (Zocor) 10 mg PO BEDTIME [facility] Last Admin: 07/30/18 20:00 Dose: 10 mg Sitagliptin Phosphate (Januvia) 100 mg PO BEDTIME [facility] Last Admin: 07/30/18 20:00 Dose: 100 mg Sodium Chloride (Saline Flush) 10 ml FLUSH ASDIRECTED PRN PRN Reason: Keep Vein Open Last Admin: 07/31/18 07:34 Dose: 10 ml Discontinued Medications Albuterol (Take Home: Albuterol 6.7 Gm, 1 Inh Pack) packet INH Q4H PRN PRN Reason: Shortness of Breath Azithromycin (Zithromax) 500 mg PO DAILY [facility] Ceftriaxone Sodium (Rocephin) 2 gm IVPUSH STAT ONE Stop: 07/29/18 16:38 Last Admin: 07/29/18 16:49 Dose: 2 gm Azithromycin 500 mg/ Sodium (Chloride) 250 mls @ 250 mls/hr IV STAT ONE Stop: 07/29/18 17:38 Last Admin: 07/29/18 18:18 Dose: 250 mls/hr Methylprednisolone Sodium Succinate (Solu-Medrol) 125 mg IV ONETIME ONE Stop: 07/29/18 16:43 Last Admin: 07/29/18 17:32 Dose: 125 mg - Exam Quality Assessment: Supplemental Oxygen, DVT Prophylaxis, Skin Breakdown General: Alert, Oriented HEENT: Pupils Equal, Pupils Reactive, EOMI, Mucous Membr. Moist/[place] Neck: Supple Lungs: Decreased Breath Sounds Cardiovascular: Regular Rate, Regular Rhythm GI/Abdominal Exam: Normal Bowel Sounds, Soft, Non-Tender, No Distention Back Exam: Normal Inspection, Full Range of Motion Extremities: Normal Inspection, Normal Range of Motion, No Pedal Edema, Normal Capillary Refill Skin: Warm, Dry, Intact Neurological: No New Focal Deficit Psy/Mental Status: Alert, Normal Affect, Normal Mood - Problem List & Annotations (1) COPD exacerbation SNOMED Code(s): 455900747 Code(s): J44.1 - CHRONIC OBSTRUCTIVE PULMONARY DISEASE W (ACUTE) EXACERBATION Status: Acute Current Visit: Yes Annotation/Comment:: Chest pain felt to be secondary to COPD exacerbation given history of severe COPD and improvement with nebs and steroids. Evaluation in the ER for other causes (ACS, CHF, d-dimer, anemia, and electrolyte disturbance) was negative. Her chest pain had resolved by the time she got up to the floor and remained resolved overnight. She is feeling well this morning and has been weaned back to her usual oxygen dosing. She was given parenteral steroids in the ER and then started on prednisone. DuoNebs have also been scheduled overnight. She was not given antibiotics as she had 0/3 cardinal symptoms for COPD exacerbation and history was not consistent with pneumonia either. WBC and CRP both normal this am so she also will not be discharged on antibiotics. Did offer to keep her 1 more night mainly related to the increase in creatinine but she declined and prefers to be dismissed home with close outpatient follow-up. (2) Respiratory failure with hypoxia SNOMED Code(s): 99209795741683771 Code(s): J96.91 - RESPIRATORY FAILURE, UNSPECIFIED WITH HYPOXIA Status: Acute Current Visit: No Qualifiers: Chronicity: acute on chronic Qualified Code(s): J96.21 - Acute and chronic respiratory failure with hypoxia Annotation/Comment:: Patient initially requiring 4L to maintain saturations but has been weaned to her usual 2L. There was an issue yesterday with the batteries for her oxygen and that is now resolved today. Otherwise, plan as above. (3) Pneumonia SNOMED Code(s): 913364993 Code(s): J18.9 - PNEUMONIA, UNSPECIFIED ORGANISM Status: Acute Current Visit: Yes Qualifiers: Pneumonia type: due to unspecified organism Laterality: unspecified laterality - Problem List Review Problem List Initiated/Reviewed/Updated: Yes - My Orders Last 24 Hours: My Active Orders 07/30/18 08:00 Aspirin [Halfprin] 81 mg PO Q2D 07/30/18 08:11 Albuterol [Proventil Neb Soln] 2.5 mg NEB Q4H PRN 07/30/18 08:15 hydroCHLOROthiazide 25 mg PO DAILY metFORMIN [Glucophage] 850 mg PO DAILY 07/30/18 08:30 Arformoterol [Brovana] 15 mcg NEB BID@0700,1900 07/30/18 08:45 Budesonide [Pulmicort] 0.5 mg NEB BID@0700,1900 07/30/18 11:00 Ipratropium [Atrovent] 0.5 mg INH QIDRT 07/30/18 12:15 Lactobacillus Rhamnosus GG [Culturelle] 1 cap PO BID 07/30/18 20:00 Lisinopril [Prinivil] 20 mg PO BEDTIME Magnesium Oxide 400 mg PO BEDTIME NIFEdipine [Procardia XL] 60 mg PO BEDTIME Simvastatin [Zocor] 10 mg PO BEDTIME SitaGLIPtin [Januvia] 100 mg PO BEDTIME cloNIDine [Catapres] 0.2 mg PO BEDTIME guaiFENesin [Mucinex] 600 mg PO BID 07/30/18 23:09 POC Glucose [Blood Glucose Check, Bedside] [RC] 07,11,17,20 08/01/18 05:00 CBC WITH AUTO DIFF [HEME] DAILY COMPREHENSIVE METABOLIC PN,CMP [CHEM] DAILY 08/01/18 08:00 Fezqr-0-Dicutknjge Inhibitor [Glassia] 4,000 mg IV Q7D 08/02/18 05:00 CBC WITH AUTO DIFF [HEME] DAILY COMPREHENSIVE METABOLIC PN,CMP [CHEM] DAILY - Assessment Assessment:: Pt continues to require above her baseline consumption of O2. Will continue to challenge as patients status tolerates. Ambulation is encouraged, diet, and medications as ordered. Pt continues to be a full code but does not want to be transferred to a higher level of care. - Plan Plan:: 1. COPD exacerbation - Continue nebs as needed - Continue home medications to help with usp management of COPD - Continue O2 monitoring and O2 supplementation to keeps saturations above 92% - Continue Solumedrol dosing - Labs are ordered - No changes noted in X-ray completed yesterday 2. Pneumonia - Continue antibiotic treatment. Rocephin and Zithromax - O2 supplementation to keep saturations above 92% - Xray was ordered from the ER for today. Waiting on results - Labs ordered. WBC did elevate last night will continue to monitor most likely due to the steroid use. Pt has had no fevers or complaints - IV fluids/maintenance running. Pt continues to show improvement. Plan it to continue abx treatment, DVT prophylaxis, increase ambulation today in the zhao, and decrease O2 consumption if she tolerates. Patient remains a code 1. Plan will be if she continues to improve switch to oral antibiotics tomorrow potential discharge for wednesday.
[2018-07-31] MEDS: Lisinopril 20 MG Tab PO SCH (19:15)
[2018-07-31] MEDS: NIFEdipine 30 MG Tab.ER PO SCH (19:15)
[2018-07-31] MEDS: Simvastatin 10 MG Tab PO SCH (19:15)
[2018-07-31] MEDS: cloNIDine 0.1 MG Tab PO SCH (19:15)
[2018-07-31] MEDS: Magnesium Oxide 400 MG Tab PO SCH (19:15)
[2018-07-31] MEDS: Calcium Carbonate 750 MG Tab.Chew PO PRN (20:06)
[2018-07-31] MEDS ORDERED: Sodium Chloride 0.9% 1,000 ML IV ONE (20:45)
[2018-07-31] MEDS: Aspirin 325 MG Tab.EC PO PRN (21:05)
[2018-07-31] MEDS: Insulin Lispro 100 Unit/ML 3 ML KwikPen SUBCUT PRN (21:18)
[2018-08-01] MEDS: Albuterol/Ipratropium 3.0-0.5 MG/3 ML Neb Soln NEB SCH ×6 (03:34→22:59)
[2018-08-01] MEDS: methylPREDNISolone Sodium Succinate 40 MG/1 ML SDV IVPUSH SCH (03:34)
[2018-08-01] MEDS: Sodium Chloride 0.9% 10 ML Syringe FLUSH PRN ×3 (03:34→19:44)
[2018-08-01] MEDS: Arformoterol 15 MCG/2 ML Neb Soln NEB SCH ×2 (07:00→18:59)
[2018-08-01] MEDS: Budesonide 0.5 MG/2 ML Neb Susp NEB SCH ×2 (07:00→18:48)
[2018-08-01 07:20] LABS: CHLORIDE,CL 100 mmol/L (98-107); SODIUM,NA 137 mmol/L (136-145)
[2018-08-01 07:34] LABS: ANION GAP 10.1 mmol/L (10-20)
--- NOTE | 2018-08-01 09:05 | PN ---
Progress Note for KAY VAZQUEZ Date: 08/01/2018 Room #: VM.206 SUBJECTIVE: This is 4th hospitalization day of the patient, who is admitted with severe shortness of breath, fever, cough, weakness, which was due to pneumonia. Her initial O2 sats at the clinic were in the 70s on her usual oxygen and they improved with higher doses of oxygen. She has been treated with Rocephin, Zithromax as well as IV Solu-Medrol. She was noted to be dehydrated and has received some IV fluids. She is still fairly weak with getting around and rested better last night. She is still having a productive cough. Her sputum has not been assessed for organisms yet. OBJECTIVE: Vital Signs: Her weight has not been taken since admission. Temperature is 36.5, pulse 95, blood pressure is 107/49, respiratory rate 20, sats are 94% on 4 L. General: The patient still appears weak. She is slightly tremulous. Heart: Regular rate and rhythm. Lungs: Have some inspiratory crackles on left base. Abdomen: Soft. Extremities: Lower extremities, no edema. LABORATORY DATA: Her white blood cell count is improved to 11.3, hemoglobin 12.2, platelets 205 with 90 segs, 2 lymphocytes, 7 monos. Sodium is 137, potassium 4.1, creatinine 0.8, GFR greater than 60. Blood sugars have ranged up to 360. Her albumin is 2.7. LFTs are normal. Chest x-ray that was done on 07/30/2018 did show a left lower lobe infiltrate. IMPRESSION: 1. Left lower lobe pneumonia. 2. Exacerbation of chronic obstructive pulmonary disease. 3. Severe chronic obstructive pulmonary disease, oxygen dependent with alpha-1 antitrypsin deficiency. 4. Type 2 diabetes mellitus. 5. Dehydration, mild. 6. Weakness. PLAN: We will stop her IV steroids today and place her on oral steroids. We will repeat chest x-ray today to evaluate her lungs. We will see what her weight is doing today as well as we will check a proBNP level today on the patient. Hopefully anticipate switching her to oral antibiotics. We will give a sputum sample. We will have Physical Therapy see the patient for strengthening. Possible discharge home tomorrow versus Wednesday depending on the patient's status. GM08/01/2018 08:27:53 MODL: 08/01/2018 08:58:01 /[id number]
[2018-08-01] MEDS: Lactobacillus Rhamnosus GG (Probiotic) Cap PO SCH ×2 (09:15→19:40)
[2018-08-01] MEDS: guaiFENesin 600 MG Tab.ER PO SCH ×2 (09:15→19:40)
[2018-08-01] MEDS: Azithromycin 250 MG Tab PO SCH (09:16)
[2018-08-01] MEDS: predniSONE 20 MG Tab PO SCH (09:20)
[2018-08-01] MEDS: Hydrochlorothiazide 25 MG Tab PO SCH (09:20)
[2018-08-01] MEDS: cefTRIAXone 2 GM Vial IVPUSH SCH (09:21)
[2018-08-01] MEDS: Enoxaparin 40 MG/0.4 ML Syringe SUBCUT SCH (09:21)
[2018-08-01] MEDS: Aspirin 81 MG Tab.EC PO SCH (09:54)
[2018-08-01] MEDS: Aspirin 325 MG Tab.EC PO PRN ×3 (09:54→23:42)
--- NOTE | 2018-08-01 10:43 | CR ---
[id number] RAD/RAD Chest PA And Lateral EXAM: FRONTAL AND LATERAL CHEST INDICATION: Pneumonia follow up. COMPARISON: July 30, 2017. DISCUSSION: The lungs are hyperinflated. Chronic changes of bronchiectasis and mucous plugging which are similar to prior examinations. No definite acute infiltrates are identified. The heart is at upper limits of normal without current evidence of congestive heart failure. Mild chronic lower thoracic compression fracture. IMPRESSION: 1. Chronic bronchiectasis, mucous plugging and scattered probable scarring with no definite acute infiltrates. Jacob Weiner MD 08/01/18 1042 Thank you for allowing us to participate in the care of your patient.
[2018-08-01] MEDS: Insulin Lispro 100 Unit/ML 3 ML KwikPen SUBCUT PRN ×2 (11:40→17:45)
[2018-08-01] MEDS ORDERED: PROTEINASE INHIBITOR IV SCH (13:00)
[2018-08-01] MEDS ORDERED: ALPHA IV SCH (13:00)
[2018-08-01] MEDS: Calcium Carbonate 750 MG Tab.Chew PO PRN (14:39)
[2018-08-01] MEDS: Cefuroxime 250 MG Tab PO SCH (19:40)
[2018-08-01] MEDS: Magnesium Oxide 400 MG Tab PO SCH (19:40)
[2018-08-01] MEDS: Simvastatin 10 MG Tab PO SCH (19:41)
[2018-08-01] MEDS: Lisinopril 20 MG Tab PO SCH (19:41)
[2018-08-01] MEDS: cloNIDine 0.1 MG Tab PO SCH (19:41)
[2018-08-01] MEDS: NIFEdipine 30 MG Tab.ER PO SCH (19:41)
[2018-08-02] MEDS: Albuterol/Ipratropium 3.0-0.5 MG/3 ML Neb Soln NEB SCH ×6 (02:12→23:21)
[2018-08-02] MEDS: Arformoterol 15 MCG/2 ML Neb Soln NEB SCH ×2 (06:11→18:42)
[2018-08-02] MEDS: Budesonide 0.5 MG/2 ML Neb Susp NEB SCH ×2 (06:11→18:25)
[2018-08-02 06:58] LABS: CHLORIDE,CL 98 mmol/L (98-107); SODIUM,NA 137 mmol/L (136-145)
[2018-08-02 07:07] LABS: ANION GAP 8.6 mmol/L (10-20)
[2018-08-02] MEDS: Azithromycin 250 MG Tab PO SCH (07:59)
[2018-08-02] MEDS: guaiFENesin 600 MG Tab.ER PO SCH ×2 (08:00→19:57)
[2018-08-02] MEDS: Lactobacillus Rhamnosus GG (Probiotic) Cap PO SCH ×4 (08:01→23:21)
[2018-08-02] MEDS: Hydrochlorothiazide 25 MG Tab PO SCH (08:01)
[2018-08-02] MEDS: predniSONE 20 MG Tab PO SCH (08:01)
[2018-08-02] MEDS: Cefuroxime 250 MG Tab PO SCH ×2 (08:02→19:57)
[2018-08-02] MEDS: Aspirin 325 MG Tab.EC PO PRN (08:07)
[2018-08-02] MEDS: Enoxaparin 40 MG/0.4 ML Syringe SUBCUT SCH (08:09)
--- NOTE | 2018-08-02 09:19 | PN ---
Progress Note for KAY VAZQUEZ Date: 08/02/2018 Room #: VM.206 SUBJECTIVE: Today is the patient's 5th hospitalization day after being admitted with pneumonia and exacerbation of COPD. She is feeling a little bit better. She is coughing more material up. Physical therapy states that she is only able to walk 25 feet before she desaturates down to 79%. The patient comments that she is having a fair amount of frequency with urination, however, she is trying to drink more fluids. Her sputum culture is still pending yet. Her blood sugars have improved to being down on the 100s from the 200s yesterday with stopping her methylprednisolone injection. OBJECTIVE: Vital Signs: Her weight yesterday was 69.6 kg which is up 0.6 kg from admission. Her temperature is 36.8, pulse 92, blood pressure is 123/77, respiratory rate 20, saturations are 92% on 4 L. Lungs: Have bilateral inspiratory fine wheezes. Without crackles. Heart: Regular rate and rhythm. Abdomen: Soft. Extremities: No edema. Mouth: No thrush. LABORATORY DATA: Her lab today shows her white blood cell count stable at 12.0, hemoglobin 13.0, platelets 221 with normal differential. Sodium 137, potassium 3.6, creatinine 0.8. GFR greater than 60, glucose 114. CRP is improved to 0.8, albumin is improved to 2.8. Chest x-ray that had been done yesterday did show chronic bronchiectasis with mucous plugging and pneumonia that had been possibly seen, had resolved potentially. IMPRESSION: 1. presumed pneumonia. 2. Exacerbation of chronic obstructive pulmonary disease. 3. Type 2 diabetes mellitus. 4. Weakness. 5. Hypoxemia exacerbated. PLAN: We will continue the patient on acute care today to receive physical therapy, monitoring her oxygen levels. She will be starting oral antibiotics today of Ceftin. We will check a urine test because of her concerns of frequency to make certain that it is not a bladder infection and anticipate hopeful discharge to home tomorrow versus if the patient needs to be placed on swing bed if she needs to continue physical therapy strengthening. GM08/02/2018 08:30:24 MODL: 08/02/2018 08:57:20 /[id number] REGGIE
[2018-08-02] MEDS: Sodium Chloride 0.9% 10 ML Syringe FLUSH PRN (11:12)
[2018-08-02] MEDS: Insulin Lispro 100 Unit/ML 3 ML KwikPen SUBCUT PRN ×2 (11:12→17:32)
[2018-08-02] MEDS: Calcium Carbonate 750 MG Tab.Chew PO PRN (17:22)
[2018-08-02] MEDS: cloNIDine 0.1 MG Tab PO SCH (19:57)
[2018-08-02] MEDS: NIFEdipine 30 MG Tab.ER PO SCH (19:58)
[2018-08-02] MEDS: Magnesium Oxide 400 MG Tab PO SCH (19:58)
[2018-08-02] MEDS: Simvastatin 10 MG Tab PO SCH (19:58)
[2018-08-02] MEDS: Lisinopril 20 MG Tab PO SCH (19:58)
[2018-08-03] MEDS: Albuterol/Ipratropium 3.0-0.5 MG/3 ML Neb Soln NEB SCH ×6 (02:27→22:54)
[2018-08-03] MEDS: Arformoterol 15 MCG/2 ML Neb Soln NEB SCH ×2 (06:28→18:50)
[2018-08-03] MEDS: Budesonide 0.5 MG/2 ML Neb Susp NEB SCH ×2 (06:28→18:50)
[2018-08-03] MEDS: Insulin Lispro 100 Unit/ML 3 ML KwikPen SUBCUT PRN ×2 (06:32→17:16)
[2018-08-03] MEDS: Cefuroxime 250 MG Tab PO SCH (07:51)
[2018-08-03] MEDS: Enoxaparin 40 MG/0.4 ML Syringe SUBCUT SCH (07:51)
[2018-08-03] MEDS: predniSONE 20 MG Tab PO SCH (07:51)
[2018-08-03] MEDS: Aspirin 325 MG Tab.EC PO PRN ×2 (07:52→21:15)
[2018-08-03] MEDS: Azithromycin 250 MG Tab PO SCH (07:52)
[2018-08-03] MEDS: Hydrochlorothiazide 25 MG Tab PO SCH (07:52)
[2018-08-03] MEDS: guaiFENesin 600 MG Tab.ER PO SCH ×2 (07:52→21:15)
[2018-08-03] MEDS: Aspirin 81 MG Tab.EC PO SCH (07:52)
[2018-08-03] MEDS ORDERED: Furosemide 20 MG/2 ML VIAL IV ONE (08:15)
--- NOTE | 2018-08-03 08:18 | CR ---
[id number] RAD/RAD Chest PA And Lateral EXAM: FRONTAL AND LATERAL CHEST INDICATION: FOLLOW-UP PNEUMONIA. COMPARISON: August 01, 2018. DISCUSSION: The lungs are hyperinflated. Chronic changes of bronchiectasis and mucous plugging which are unchanged. No acute infiltrates are identified. Cardiac mediastinal silhouette is stable in size and contour. IMPRESSION: 1. Stable chest with findings of chronic bronchitis. No definite infiltrate. Elliot Galindo DO 08/03/18 0816 Thank you for allowing us to participate in the care of your patient.
[2018-08-03] MEDS: Sodium Chloride 0.9% 10 ML Syringe FLUSH PRN ×3 (08:53→18:54)
[2018-08-03] MEDS: Lactobacillus Rhamnosus GG (Probiotic) Cap PO SCH ×3 (08:55→22:54)
[2018-08-03 09:15] LABS: CHLORIDE,CL 95 mmol/L (98-107); SODIUM,NA 136 mmol/L (136-145)
[2018-08-03 09:18] LABS: ANION GAP 7.9 mmol/L (10-20)
[2018-08-03] MEDS ORDERED: Iopamidol 612 MG/ML 100 ML Bottle IVPUSH ONE (09:26)
--- NOTE | 2018-08-03 09:41 | PN ---
Progress Note for KAY VAZQUEZ Date: 08/03/2018 Room #: VM.206 SUBJECTIVE: This is the patient's 6th hospital day of being admitted with exacerbation of COPD with pneumonia. She has been feeling more short of breath during the night. She has required more oxygen this morning up to 6 L and generally just does not feel like she has improved with much changes. She did receive her infusion of her medication for her alpha-1 antitrypsin deficiency on 08/01/2018. OBJECTIVE: Vital Signs: Her weight is not yet obtained today, it had gone down 0.4 kg yesterday. Temperature is 36.6; pulse is 99; blood pressure is 146/79; respiratory rate is 18; saturations are 94, now on 6 L. General: The patient appears a little bit more fatigued. She still can talk. Heart: Regular rate and rhythm. Lungs: Diminished breath sounds on the bases. Abdomen: Soft. IMAGING: Chest x-ray shows some fluid in the left costophrenic angle, questionably slight coarsening of bilateral fu, difficult to read due to her previous pulmonary fibrosis. MICROBIOLOGY: Her sputum culture is growing gram-negative rods. Blood cultures were negative. IMPRESSION: 1. Pneumonia. 2. Hypoxemia, worsening. 3. Severe chronic obstructive pulmonary disease with exacerbation. 4. Type 2 diabetes mellitus. 5. Weakness. PLAN: We will check D-dimer and blood gases today. She may need to have a CT scan of her lungs. Depending on the results of that lab work, we will determine if we need to consult Internal Medicine here in [place] versus need to refer the patient to [place]. To note, she had previously had a Pseudomonas infection and so possibly her antibiotics are not covering her organism; however, that is not identified yet. GM08/03/2018 08:19:13 MODL: 08/03/2018 08:55:06 /[id number]
[2018-08-03] MEDS: Piperacillin/Tazobactam 3.375 GM in Sodium Chloride 0.9% 100 ML IV SCH ×2 (11:45→18:49)
--- NOTE | 2018-08-03 12:03 | CT ---
[id number] CT/CTA Chest Exam: CTA Chest Clinical Data: POSITIVE D-DIMER COMPARISON: CORRELATION IS MADE WITH THE EXAM OF AUGUST 14, 2017. FINDINGS: Significant interstitial and bullous lung disease again is seen. There is no pulmonary embolus. There is stable bilateral mild mediastinal and hilar adenopathy. Right upper lobe tubular branching densities are stable. IMPRESSION: NO PULMONARY EMBOLI. NO CHANGE SINCE LAST YEAR. George Bhatia MD 08/03/18 4956 Thank you for allowing us to participate in the care of your patient.
[2018-08-03] MEDS ORDERED: Fluconazole 100 MG Tab PO ONE (17:45)
[2018-08-03] MEDS: NIFEdipine 30 MG Tab.ER PO SCH (21:14)
[2018-08-03] MEDS: Lisinopril 20 MG Tab PO SCH (21:15)
[2018-08-03] MEDS: Simvastatin 10 MG Tab PO SCH (21:15)
[2018-08-03] MEDS: cloNIDine 0.1 MG Tab PO SCH (21:15)
[2018-08-03] MEDS: Magnesium Oxide 400 MG Tab PO SCH (21:16)
[2018-08-03] MEDS ORDERED: Insulin Lispro 100 Unit/ML 3 ML KwikPen SUBCUT STA (21:28)
[2018-08-04] MEDS: Piperacillin/Tazobactam 3.375 GM in Sodium Chloride 0.9% 100 ML IV SCH ×3 (01:55→18:14)
[2018-08-04] MEDS: Albuterol/Ipratropium 3.0-0.5 MG/3 ML Neb Soln NEB SCH ×6 (02:01→23:01)
[2018-08-04] MEDS: Budesonide 0.5 MG/2 ML Neb Susp NEB SCH ×2 (06:33→18:59)
[2018-08-04] MEDS: Arformoterol 15 MCG/2 ML Neb Soln NEB SCH ×2 (06:33→18:57)
[2018-08-04] MEDS: predniSONE 20 MG Tab PO SCH (08:04)
[2018-08-04] MEDS: Hydrochlorothiazide 25 MG Tab PO SCH (08:05)
[2018-08-04] MEDS: Fluconazole 100 MG Tab PO SCH (08:05)
[2018-08-04] MEDS: Enoxaparin 40 MG/0.4 ML Syringe SUBCUT SCH (08:05)
[2018-08-04] MEDS: guaiFENesin 600 MG Tab.ER PO SCH ×2 (08:05→21:30)
[2018-08-04] MEDS: Lactobacillus Rhamnosus GG (Probiotic) Cap PO SCH ×2 (10:19→23:01)
--- NOTE | 2018-08-04 10:59 | PN ---
Progress Note for KAY VAZQUEZ Date: 08/04/2018 Room #: .206 SUBJECTIVE: The patient is feeling a little bit better today. Yesterday, it was noted that her oxygen requirements changed significantly, so we had done a D- dimer and that was positive. She underwent a CT scans to rule out PE, was negative for PE. Her sputum culture did come back positive for Pseudomonas aeruginosa, so we switched her to Zosyn antibiotics. This morning she states she is feeling a little bit better. OBJECTIVE: Vital Signs: Her O2 sats are 94% on 3 L, but she did drop down to 87, her pulse was 102. Heart: Regular rate. Lungs: Diminished breath sounds on bases, not much for crackles or wheezes. Abdomen: Soft. LABORATORY DATA: Her lab was not ordered today other than her Accu-Cheks. IMPRESSION: 1. Pseudomonas pneumonia. 2. Exacerbation of chronic obstructive pulmonary disease. 3. Hypoxemia, worsening. 4. Weakness. 5. Deconditioning. PLAN: We will continue IV Zosyn today. We will recheck lab work tomorrow. I will confer with Infectious Disease about options for switching her to a home treatment if able to tomorrow. We will reduce her prednisone to 40 mg daily today as well. GM08/04/2018 09:09:20 MODL: 08/04/2018 10:48:53 /[id number]
--- NOTE | 2018-08-04 11:44 | PCM.SN ---
- Free Text/Narrative Note: Reviewed case with infectious disease, with pseudomonas infection, and she recommended 7-10 days of IV zosyn, and not to use levaquin or cipro due to their intermediate sensitivities.
[2018-08-04] MEDS: Insulin Lispro 100 Unit/ML 3 ML KwikPen SUBCUT PRN ×2 (12:29→17:35)
[2018-08-04] MEDS: Magnesium Oxide 400 MG Tab PO SCH (21:28)
[2018-08-04] MEDS: Simvastatin 10 MG Tab PO SCH (21:29)
[2018-08-04] MEDS: NIFEdipine 30 MG Tab.ER PO SCH (21:29)
[2018-08-04] MEDS: Lisinopril 20 MG Tab PO SCH (21:29)
[2018-08-04] MEDS: cloNIDine 0.1 MG Tab PO SCH (21:30)
[2018-08-05] MEDS: Piperacillin/Tazobactam 3.375 GM in Sodium Chloride 0.9% 100 ML IV SCH ×2 (01:55→09:57)
[2018-08-05] MEDS: Albuterol/Ipratropium 3.0-0.5 MG/3 ML Neb Soln NEB SCH ×3 (02:01→11:07)
[2018-08-05 06:16] VITALS: BP 122/71
[2018-08-05] MEDS: Arformoterol 15 MCG/2 ML Neb Soln NEB SCH (07:04)
[2018-08-05] MEDS: Budesonide 0.5 MG/2 ML Neb Susp NEB SCH (07:04)
[2018-08-05 07:28] LABS: CHLORIDE,CL 98 mmol/L (98-107); SODIUM,NA 137 mmol/L (136-145)
[2018-08-05 07:32] LABS: ANION GAP 8.1 mmol/L (10-20)
[2018-08-05] MEDS: Enoxaparin 40 MG/0.4 ML Syringe SUBCUT SCH (07:48)
[2018-08-05] MEDS: guaiFENesin 600 MG Tab.ER PO SCH (07:49)
[2018-08-05] MEDS: Fluconazole 100 MG Tab PO SCH (07:49)
[2018-08-05] MEDS: Hydrochlorothiazide 25 MG Tab PO SCH (07:49)
[2018-08-05] MEDS: Insulin Lispro 100 Unit/ML 3 ML KwikPen SUBCUT PRN ×2 (07:50→11:36)
[2018-08-05] MEDS ORDERED: predniSONE 20 MG Tab PO SCH (08:00)
[2018-08-05] MEDS: Aspirin 81 MG Tab.EC PO SCH (09:53)
[2018-08-05] MEDS: Lactobacillus Rhamnosus GG (Probiotic) Cap PO SCH (09:53)
--- NOTE | 2018-08-05 10:48 | PN ---
Progress Note for KAY VAZQUEZ Date: 08/05/2018 Room #: VM.206 SUBJECTIVE: This is the patient's 8th hospitalization day. She was found to have Pseudomonas aerogenousa it was intermediate resistant to all oral medications. I did visit with Infectious Disease yesterday and they felt she should be on 7 to 10 days of IV antibiotics of her Zosyn. The patient is feeling a little bit stronger today, but she still does have higher oxygen requirement somewhat she had had prior to being admitted. She does have a little bit of productive cough as well. OBJECTIVE: Vital Signs: Her weight is 70.3 kg, which is up 2 kg from yesterday, but only up 1 kg from the day prior. Her temperature is 36.2, pulse is 93, blood pressure is 122/71, respiratory rate is 20, sats are 94% on 4 L. Lungs: The patient is having more productive cough. She has a little bit of crackles on her left base. Heart: Regular rate and rhythm. Abdomen: Soft. Extremities: Lower extremities; no edema. LABORATORY DATA: Today shows her white blood cell count 12.7, which has gone up just slightly from the prior 1 to 2 days ago. Hemoglobin is 12.2, platelets 240 with 73 segs, 13 lymphocytes. Sodium is 137, potassium 4.1, creatinine 0.8, GFR greater than 60. Glucose is 233 this morning, had been up to 390 last evening. CRP has improved to 0.5. IMPRESSION: 1. Pseudomonas aeruginosa pneumonia. 2. Exacerbation of chronic obstructive pulmonary disease. 3. Hypoxemia with exacerbation. 4. Hypertension. 5. Type 2 diabetes mellitus. PLAN: We will place the patient on swing bed today. We will reduce her IV steroids and we will repeat chest x-ray next week. We will continue physical therapy with the patient. GM08/05/2018 08:52:31 MODL: 08/05/2018 10:42:52 /[id number]
[2018-08-05] MEDS: Ipratropium 0.02% 0.5 MG/2.5 ML Neb Soln INH SCH (11:08)
--- NOTE | 2018-08-08 09:43 | DISCH ---
The patient was admitted on 07/29/2018 and transferred to [facility] on 08/05/2018, with primary diagnoses of: 1. Pseudomonas aeruginosa pneumonitis. 2. Severe hypoxemia. 3. Exacerbation of chronic obstructive pulmonary disease. 4. Oxygen-dependent chronic obstructive pulmonary disease. 5. Mild congestive heart failure exacerbation. 6. Type 2 diabetes mellitus. 7. Deconditioning secondary to above issues. 8. Dehydration. 9. Hypertension. 10.CO2 retention. SUMMARY OF ADMIT HISTORY AND PHYSICAL: The patient is a 73-year-old female, who initially presented to the clinic on 07/29/2018 with coughing with a "bad cold." She was noted to be severely hypoxic down into the 70s on 6 L of O2, so she was taken to the emergency department. In the emergency department, her oxygen levels were increased to 6 L. She was given a DuoNeb, and she did improve up to 85%, 90%. Initial workup showed that her temperature was 39.2, her pulse was 122, blood pressure was 161/93, respiratory rate was 22, saturations were 87 on 7.5 L. SUMMARY OF HOSPITAL COURSE: The patient had a chest x-ray, which did not show initial infiltrate. EKG showed sinus tachycardia with PVCs present. The patient was treated with IV Rocephin as well as Zithromax. She was placed on IV Solu-Medrol. It was noted that her white blood cell count did not worsen after admission and by 08/05/2018, was down to 12.7. Her hemoglobin had stayed stable while hospitalized. Her electrolytes had stayed stable. Her creatinine had stayed stable at 0.8. Her CRP had gone from 1.7 up to 4.1, down to 0.5 on the day of transfer. The patient had blood gases that were done on 08/03/2018 and that day she seemed to require more oxygen, requirements of up to 6 L, having been at 4 L. Her pH was 7.462. Her pCO2 was 54, which was elevated as last April her pCO2 had been only 39. PO2 was 67, bicarb 39, oxygen 93 on 15 L, FiO2 was 0.44. She did have a positive D-dimer, so she did undergo a CTA of her chest to rule out PE, it was negative. A sputum culture had not been obtained until 08/01/2018 and results came back on 08/03/2018 showing Pseudomonas that was sensitive to everything except for Levaquin, was intermediate and Cipro was intermediate and cefepime intermediate sensitivity, so then she had been switched on 08/03 to Zosyn 3.375 g IV q.8 hours. The patient had been covered with Lovenox for DVT prophylaxis while she was hospitalized. Her IV steroids were weaned down. She was treated with sliding scale insulin to cover her elevated blood sugars. By 08/04, she was feeling much better. Conversation was obtained with Infectious Disease about what to treat and how long to treat, and they felt she should be on a total of 7 to 10 days' worth of IV piperacillin as she has now had recurrence of Pseudomonas infection within the past 4 months' time. The patient was receiving physical therapy for her weakness and deconditioning. She had not had an OT consult. The patient's medications at the time of transfer will be albuterol 2 puffs q.4 hours p.r.n., clonidine 0.2 mg at bedtime, Onglyza 5 mg at bedtime, hydrochlorothiazide 25 mg 1 pill daily, Adalat CC 60 mg 1 pill at bedtime, Zocor 10 mg at bedtime, Altace 10 mg 1 pill at bedtime, metformin 850 mg 1 pill daily, Spiriva 1 puff daily, Brovana nebs b.i.d., Pulmicort nebs b.i.d., albuterol nebs q.4 hours p.r.n., Mucinex 600 mg b.i.d., aspirin 81 mg b.i.d., alpha-1 proteinase inhibitor infusion 4000 mg IV every 7 days, and magnesium oxide 400 mg daily. To note, her code status is full code at the time of transfer. The patient is requiring 4 to 5 L of oxygen now, which is higher than her previous oxygen levels. Do anticipate the patient to be able to return to her home environment; however, her severe COPD may cause her to from her current lung conditions if we are not able to correct her infection. To note, she did receive 1 dose of IV Lasix because of some mild fluid build up in her lungs. Her chest CT that had been done on 08/03/2018, which was done because of PE, was negative for PE, also showed her chronic bronchitis, but no concerning lung nodules were noted. There was stable bilateral mild mediastinal and hilar adenopathy noted. Right upper lobe lobular branching densities were stable. However, the patient was felt to have a pneumonia because of her fever, hypoxemia, productive cough, positive sputum sample and not felt to be a carrier but felt to be infected with that. GM08/05/2018 10:49:18 MODL: 08/06/2018 05:56:17 /[id number]
== END 2018-08-05 11:31 | disposition swing bed (61) | DRG 177 ==
LOC: VM.ED 16:02 → VM.MS 17:15
PROVIDERS: ADMIT Physician Assistant; ATTEND Family Medicine
DX: J15.1 Pneumonia due to Pseudomonas (principal); J96.21 Acute and chronic respiratory failure with hypoxia; J18.9 Pneumonia, unspecified organism; R50.9 Fever, unspecified; E86.0 Dehydration; R05 Cough; R06.02 Shortness of breath; I50.9 Heart failure, unspecified; I11.0 Hypertensive heart disease with heart failure; Z98.49 Cataract extraction status, unspecified eye; R53.1 Weakness; Z99.81 Dependence on supplemental oxygen; R09.3 Abnormal sputum; E88.01 Alpha-1-antitrypsin deficiency; Z88.8 Allergy status to other drugs, medicaments and biological substances; Z79.4 Long term (current) use of insulin; Z79.52 Long term (current) use of systemic steroids; Z79.899 Other long term (current) drug therapy; E78.00 Pure hypercholesterolemia, unspecified; I10 Essential (primary) hypertension; J43.1 Panlobular emphysema; M81.0 Age-related osteoporosis without current pathological fracture; E11.9 Type 2 diabetes mellitus without complications; R06.2 Wheezing
CPT/HCPCS: 36415; 36600; 71045; 71046; 71275; 80048; 80053; 81001; 82803; 82962; 83605; 83735; 83880; 84100; 84484; 85025; 85379; 85610; 86140; 87040; 87070; 87077; 87086; 87186; 87205; 93005; 94640; 94760; 96374; 96375; 97110-GP; 97116-GP; 97161-GP; 99285-25; A4217; A9270-GY; J0456; J0696; J1650; J1815-GY; J1940; J2543; J2920; J2930; J7030; J7050; J7620-GY; Q9967

== ENCOUNTER 2018-08-05 11:31 | Inpatient (IN) | payer MEDICARE, BC ==
[~2018-08-05 11:31] MED LIST: ALPHA IV SCH; Albuterol 0.083% 2.5 MG/3 ML Neb Soln NEB PRN; Albuterol 8 GM Inhaler INH PRN; Aspirin 325 MG Tab.EC PO PRN; Aspirin 81 MG Tab.EC PO SCH; Calcium Carbonate 750 MG Tab.Chew PO PRN; Ipratropium 0.02% 0.5 MG/2.5 ML Neb Soln INH SCH; PROTEINASE INHIBITOR IV SCH; Sodium Chloride 0.9% 10 ML Syringe FLUSH PRN
[2018-08-05] MEDS: Lactobacillus Rhamnosus GG (Probiotic) Cap PO SCH ×2 (12:58→21:23)
[2018-08-05] MEDS: Albuterol/Ipratropium 3.0-0.5 MG/3 ML Neb Soln NEB SCH ×4 (13:00→23:05)
[2018-08-05] MEDS: Piperacillin/Tazobactam 3.375 GM in Sodium Chloride 0.9% 100 ML IV SCH ×2 (13:00→18:27)
[2018-08-05] MEDS: Insulin Lispro 100 Unit/ML 3 ML KwikPen SUBCUT PRN (17:20)
[2018-08-05] MEDS ORDERED: Arformoterol 15 MCG/2 ML Neb Soln NEB SCH (19:00)
[2018-08-05] MEDS ORDERED: Budesonide 0.5 MG/2 ML Neb Susp NEB SCH (19:00)
[2018-08-05] MEDS: Arformoterol 15 MCG/2 ML Neb Soln NEB SCH (19:55)
[2018-08-05] MEDS: Budesonide 0.5 MG/2 ML Neb Susp NEB SCH (19:58)
[2018-08-05] MEDS ORDERED: Non-Formulary Medication 1 Each (Clonidine Hcl [Catapres] 0.2 MG) PO SCH (20:00)
[2018-08-05] MEDS ORDERED: TIOTROPIUM INH SCH (20:00)
[2018-08-05] MEDS ORDERED: guaiFENesin 600 MG Tab.ER PO SCH (20:00)
[2018-08-05] MEDS ORDERED: Magnesium Oxide 400 MG Tab PO SCH (20:00)
[2018-08-05] MEDS ORDERED: RAMIPRIL 10 MG PO SCH (20:00)
[2018-08-05] MEDS ORDERED: Simvastatin 10 MG Tab PO SCH (20:00)
[2018-08-05] MEDS ORDERED: Non-Formulary Medication 1 Each (Nifedipine [Adalat Cc] 60 MG) PO SCH (20:00)
[2018-08-05] MEDS: cloNIDine 0.1 MG Tab PO SCH (20:04)
[2018-08-05] MEDS: NIFEdipine 30 MG Tab.ER PO SCH (20:04)
[2018-08-05] MEDS: Simvastatin 10 MG Tab PO SCH (20:05)
[2018-08-05] MEDS: Lisinopril 20 MG Tab PO SCH (20:05)
[2018-08-05] MEDS: guaiFENesin 600 MG Tab.ER PO SCH (20:05)
[2018-08-05] MEDS: Magnesium Oxide 400 MG Tab PO SCH (20:06)
[2018-08-05] MEDS: SAXAGLIPTIN 5 MG PO SCH (20:10)
[2018-08-06] MEDS: Piperacillin/Tazobactam 3.375 GM in Sodium Chloride 0.9% 100 ML IV SCH ×3 (02:13→18:31)
[2018-08-06] MEDS: Albuterol/Ipratropium 3.0-0.5 MG/3 ML Neb Soln NEB SCH ×6 (02:20→22:28)
[2018-08-06] MEDS: Arformoterol 15 MCG/2 ML Neb Soln NEB SCH ×2 (06:19→18:39)
[2018-08-06] MEDS: Budesonide 0.5 MG/2 ML Neb Susp NEB SCH ×2 (06:19→18:39)
[2018-08-06] MEDS ORDERED: Hydrochlorothiazide 25 MG Tab PO SCH (08:00)
[2018-08-06] MEDS: Hydrochlorothiazide 25 MG Tab PO SCH (08:15)
[2018-08-06] MEDS: predniSONE 20 MG Tab PO SCH (08:16)
[2018-08-06] MEDS: guaiFENesin 600 MG Tab.ER PO SCH ×2 (08:16→20:16)
[2018-08-06] MEDS: Fluconazole 100 MG Tab PO SCH (08:16)
[2018-08-06] MEDS: Enoxaparin 40 MG/0.4 ML Syringe SUBCUT SCH (08:16)
[2018-08-06] MEDS: Insulin Lispro 100 Unit/ML 3 ML KwikPen SUBCUT PRN ×3 (08:19→17:36)
[2018-08-06] MEDS: Lactobacillus Rhamnosus GG (Probiotic) Cap PO SCH ×2 (09:50→22:28)
[2018-08-06] MEDS: NIFEdipine 30 MG Tab.ER PO SCH (20:15)
[2018-08-06] MEDS: cloNIDine 0.1 MG Tab PO SCH (20:15)
[2018-08-06] MEDS: Simvastatin 10 MG Tab PO SCH (20:16)
[2018-08-06] MEDS: Magnesium Oxide 400 MG Tab PO SCH (20:16)
[2018-08-06] MEDS: Lisinopril 20 MG Tab PO SCH (20:16)
[2018-08-06] MEDS: SAXAGLIPTIN 5 MG PO SCH (20:17)
[2018-08-07] MEDS: Piperacillin/Tazobactam 3.375 GM in Sodium Chloride 0.9% 100 ML IV SCH ×3 (02:06→18:24)
[2018-08-07] MEDS: Albuterol/Ipratropium 3.0-0.5 MG/3 ML Neb Soln NEB SCH ×6 (02:11→22:08)
[2018-08-07] MEDS: Arformoterol 15 MCG/2 ML Neb Soln NEB SCH ×2 (07:01→18:26)
[2018-08-07] MEDS: Budesonide 0.5 MG/2 ML Neb Susp NEB SCH ×2 (07:02→18:26)
[2018-08-07] MEDS: Hydrochlorothiazide 25 MG Tab PO SCH (08:02)
[2018-08-07] MEDS: guaiFENesin 600 MG Tab.ER PO SCH ×2 (08:02→20:30)
[2018-08-07] MEDS: Fluconazole 100 MG Tab PO SCH (08:03)
[2018-08-07] MEDS: predniSONE 20 MG Tab PO SCH (08:03)
[2018-08-07] MEDS: Enoxaparin 40 MG/0.4 ML Syringe SUBCUT SCH (08:04)
[2018-08-07] MEDS: Insulin Lispro 100 Unit/ML 3 ML KwikPen SUBCUT PRN ×3 (08:07→17:16)
[2018-08-07] MEDS: Aspirin 81 MG Tab.EC PO SCH (08:13)
[2018-08-07] MEDS: Lactobacillus Rhamnosus GG (Probiotic) Cap PO SCH ×2 (10:19→22:08)
[2018-08-07] MEDS: cloNIDine 0.1 MG Tab PO SCH (20:29)
[2018-08-07] MEDS: Lisinopril 20 MG Tab PO SCH (20:29)
[2018-08-07] MEDS: NIFEdipine 30 MG Tab.ER PO SCH (20:30)
[2018-08-07] MEDS: Simvastatin 10 MG Tab PO SCH (20:30)
[2018-08-07] MEDS: Magnesium Oxide 400 MG Tab PO SCH (20:30)
[2018-08-07] MEDS: SAXAGLIPTIN 5 MG PO SCH (20:31)
[2018-08-07] MEDS ORDERED: Insulin Glargine,Human Rec. Analog 100 Units/ML 3 ML Pen SUBCUT ONE (22:00)
[2018-08-08] MEDS: Piperacillin/Tazobactam 3.375 GM in Sodium Chloride 0.9% 100 ML IV SCH ×3 (02:02→18:28)
[2018-08-08] MEDS: Albuterol/Ipratropium 3.0-0.5 MG/3 ML Neb Soln NEB SCH ×6 (02:02→22:12)
[2018-08-08] MEDS: Arformoterol 15 MCG/2 ML Neb Soln NEB SCH ×2 (06:09→18:28)
[2018-08-08] MEDS: Budesonide 0.5 MG/2 ML Neb Susp NEB SCH ×2 (06:10→18:28)
[2018-08-08 07:49] LABS: CHLORIDE,CL 96 mmol/L (98-107); SODIUM,NA 136 mmol/L (136-145)
--- NOTE | 2018-08-08 08:30 | CR ---
[id number] RAD/RAD Chest PA And Lateral EXAM: RAD Chest PA And Lateral INDICATION: PNEUMONIA FOLLOW-UP. COMPARISON: Multiple priors, most recent from August 03, 2018. DISCUSSION: Again seen are changes of bilateral basal predominant parenchymal opacification superimposed on COPD. No significant change from the prior examination. IMPRESSION: No change from the prior examination. Greg Vera MD 08/08/18 0829 Thank you for allowing us to participate in the care of your patient.
[2018-08-08] MEDS: Hydrochlorothiazide 25 MG Tab PO SCH (09:24)
[2018-08-08] MEDS: Enoxaparin 40 MG/0.4 ML Syringe SUBCUT SCH (09:24)
[2018-08-08] MEDS: Fluconazole 100 MG Tab PO SCH (09:24)
[2018-08-08] MEDS: guaiFENesin 600 MG Tab.ER PO SCH ×2 (09:24→20:39)
[2018-08-08] MEDS: Lactobacillus Rhamnosus GG (Probiotic) Cap PO SCH ×2 (09:24→22:12)
[2018-08-08] MEDS: predniSONE 20 MG Tab PO SCH ×2 (09:25→09:27)
[2018-08-08] MEDS: Sodium Chloride 0.9% 10 ML Syringe FLUSH PRN ×2 (09:25→18:28)
[2018-08-08] MEDS: Magnesium Oxide 400 MG Tab PO SCH ×2 (09:34→20:41)
--- NOTE | 2018-08-08 10:51 | PN ---
Progress Note for KAY VAZQUEZ Date: 08/08/2018 Room #: .[facility] SUBJECTIVE: The patient is feeling better. She is having less of a cough. She is getting stronger. She is requiring now 3.5 L of oxygen for ambulation. OBJECTIVE: Vital Signs: Her weight is 67.7 kg which is down 3 kg from last week. Her temperature is 36.4, blood pressure is 120/86, respiratory rate 21, sats are 95. General: She is looking much stronger, brighter, not as much coughing. Heart: Regular rate and rhythm. Lungs: Diminished breath sounds on bases. Abdomen: Soft. Bowel sounds present. DIAGNOSTIC DATA: Her chest x-ray was done today which just shows her chronic fibrotic changes. Her lab shows her white blood cell count has gone up to 20.7, unclear exactly why. Hemoglobin 13.8, platelets 301. Sodium 136, potassium 4.0, creatinine 0.8, GFR 54, glucose is 262, magnesium is just slightly low at 1.7. ALT is slightly elevated at 67. IMPRESSION: 1. Pseudomonas pneumonitis. 2. Type 2 diabetes mellitus. 3. Hypoxemia. 4. Severe chronic obstructive pulmonary disease, oxygen dependent. 5. Alpha-1 antitrypsin deficiency. 6. Hypertension. 7. Hypomagnesemia, which is borderline. PLAN: We will reduce her prednisone down to 30 mg daily. She will continue her piperacillin until Wednesday which should be a full 7-day course. She is on some p.r.n. insulin right now. She had not been receiving her Onglyza while she was hospitalized until just yesterday I believe. She is currently on magnesium and so we will actually increase her magnesium to b.i.d. dosing to help improve with this and I anticipate she will be ready to be discharged home by Wednesday of this week. GM08/08/2018 08:52:17 MODL: 08/08/2018 10:42:17 /[id number]
[2018-08-08] MEDS: Insulin Lispro 100 Unit/ML 3 ML KwikPen SUBCUT PRN ×2 (11:16→17:26)
[2018-08-08] MEDS ORDERED: GLASSIA IV SCH ×2 (14:00)
[2018-08-08] MEDS: Lisinopril 20 MG Tab PO SCH (20:39)
[2018-08-08] MEDS: cloNIDine 0.1 MG Tab PO SCH (20:39)
[2018-08-08] MEDS: Simvastatin 10 MG Tab PO SCH (20:40)
[2018-08-08] MEDS: NIFEdipine 30 MG Tab.ER PO SCH (20:40)
[2018-08-08] MEDS: SAXAGLIPTIN 5 MG PO SCH (20:41)
[2018-08-08] MEDS ORDERED: Insulin Glargine,Human Rec. Analog 100 Units/ML 3 ML Pen SUBCUT ONE (21:15)
[2018-08-09] MEDS: Piperacillin/Tazobactam 3.375 GM in Sodium Chloride 0.9% 100 ML IV SCH ×3 (02:11→18:22)
[2018-08-09] MEDS: Albuterol/Ipratropium 3.0-0.5 MG/3 ML Neb Soln NEB SCH ×6 (02:12→22:21)
[2018-08-09] MEDS: Budesonide 0.5 MG/2 ML Neb Susp NEB SCH ×2 (06:58→20:07)
[2018-08-09] MEDS: Arformoterol 15 MCG/2 ML Neb Soln NEB SCH ×2 (07:23→18:48)
[2018-08-09] MEDS: Hydrochlorothiazide 25 MG Tab PO SCH (07:41)
[2018-08-09] MEDS: Magnesium Oxide 400 MG Tab PO SCH ×2 (07:41→20:09)
[2018-08-09] MEDS: Enoxaparin 40 MG/0.4 ML Syringe SUBCUT SCH (07:41)
[2018-08-09] MEDS: guaiFENesin 600 MG Tab.ER PO SCH ×2 (07:42→20:10)
[2018-08-09] MEDS: Fluconazole 100 MG Tab PO SCH (07:42)
[2018-08-09] MEDS: Aspirin 81 MG Tab.EC PO SCH (07:42)
[2018-08-09 07:44] LABS: CHLORIDE,CL 99 mmol/L (98-107); SODIUM,NA 138 mmol/L (136-145)
[2018-08-09 07:47] LABS: ANION GAP 9.9 mmol/L (10-20)
[2018-08-09] MEDS ORDERED: predniSONE 10 MG Tab PO SCH (08:00)
--- NOTE | 2018-08-09 09:59 | PN ---
Progress Note for KAY VAZQUEZ Date: 08/09/2018 Room #: .[facility] [place] SUBJECTIVE: The patient is feeling much stronger and better. She is eager to get discharged home. She has been up ambulating much better. OBJECTIVE: Vital Signs: Her weight has been stable as checked yesterday. Her sats are 90% on 3.5 L and on 4 L, she will go above 91%. Her blood pressure is 143/68, her respiratory rate is 18. Her Accu-Cheks have ranged between 300 to 150s this morning. Lungs: Have diminished breath sounds on bases, but are much improved with respiratory exchange. Heart: Regular rate. Abdomen: Soft. LABORATORY DATA: Her white blood cell count is down to 18.0 with platelets 300, hemoglobin is 13.9 with she has 70% segs, 18 lymphocytes. Sodium is 138, potassium 3.9, creatinine 0.8, GFR greater than 60, glucose 159. Magnesium was not checked today. LFTs were normal. Albumin is 3.0. IMPRESSION: 1. Pseudomonas pneumonia. 2. Severe chronic obstructive pulmonary disease. 3. Alpha 1 antitrypsin deficiency. 4. Type 2 diabetes mellitus. 5. Hypertension. PLAN: The patient will receive IV antibiotics until tomorrow morning. She will be reduced to prednisone 20 mg daily starting tomorrow. We will place discharge orders for her to go home tomorrow. She will not need to go home on insulin. We will have her resume same breathing treatments at home to make sure she uses her albuterol inhaler p.r.n. short of breath. We will have her follow up to see me in a week's time in the clinic. GM08/09/2018 08:58:10 MODL: 08/09/2018 09:48:15 /[id number]
[2018-08-09] MEDS: Lactobacillus Rhamnosus GG (Probiotic) Cap PO SCH ×2 (10:30→22:21)
[2018-08-09] MEDS: Insulin Lispro 100 Unit/ML 3 ML KwikPen SUBCUT PRN ×2 (11:43→17:08)
[2018-08-09] MEDS: cloNIDine 0.1 MG Tab PO SCH (20:07)
[2018-08-09] MEDS: Simvastatin 10 MG Tab PO SCH (20:10)
[2018-08-09] MEDS: NIFEdipine 30 MG Tab.ER PO SCH (20:10)
[2018-08-09] MEDS: Lisinopril 20 MG Tab PO SCH (20:10)
[2018-08-09] MEDS: SAXAGLIPTIN 5 MG PO SCH (20:12)
--- NOTE | 2018-08-10 00:31 | DISCH ---
PRIMARY DIAGNOSES: 1. Pseudomembranous aeruginosa pneumonitis. 2. Exacerbation of chronic obstructive pulmonary disease. 3. Severe hypoxemia. 4. Oxygen-dependent chronic obstructive pulmonary disease with worsening conditions. 5. Mild congestive heart failure exacerbation. 6. Thrush. 7. Type 2 diabetes mellitus. 8. Deconditioning secondary to above issues. 9. Dehydration. 10.Hypertension. 11.CO2 retention. SUMMARY OF ADMIT HISTORY AND PHYSICAL: The patient is a 73-year-old female who presented to the clinic on 07/29/2018, feeling sick, coughing. She was noted to be quite hypoxemic, not able to keep her sats in the clinic about 80% with 6 L, so she was brought to the emergency room, then subsequently admitted to acute care, was placed on Rocephin, DuoNebs, Zithromax, and IV Solu-Medrol. The patient had a positive D-dimer because her oxygen levels are worsening. Her pH was 7.46, pCO2 of 54 with pO2 of 67, bicarb 39, oxygen 93 on 15 L, FiO2 is 44. The patient had a CT scan, which is negative for PE. Sputum culture had been obtained on 08/01/2018, which came back showing Pseudomonas, so she was switched from Rocephin to Levaquin; however, when she had gram-negative rods present, we actually switched her to piperacillin, that was started the evening of 08/03/2018. SUMMARY OF SWING BED COURSE: While on swing bed, the patient continued to receive IV antibiotic. She received physical therapy for strengthening. It was noted that her Solu-Medrol dose was switched from IV to oral prednisone and then slowly taper down every 3 days from 40 mg a day to 30 mg a day to 20 mg a day at discharge. The patient's oxygen level still maintained at about 4 L and is very difficult to change that. The patient's blood sugars were running higher and so she was covered with some insulin. While she was on swing bed, she had not initially received her Onglyza and then that was provided. Her laboratory data on 08/09/2018 showed that her white blood cell count had improved to 18.0, hemoglobin 13.9 with 300 platelets, 70% segs, 18% lymphocytes, 5 monocytes. Sodium is 138, potassium 3.9, carbon dioxide 33, creatinine 0.8. GFR greater than 60, glucose 129, calcium was 9.3, total bilirubin 0.3, AST 16, ALT 53, alkaline phosphatase 90, albumin 3.0. Her last magnesium that had been checked on 08/08/2018, was 1.7. The patient was felt to be stable for discharge home by 08/10 when her IV antibiotics were done. MEDICATIONS: At the time of discharge will be prednisone 20 mg daily until she is seen in the clinic, albuterol 2 puffs every 4 hours as needed for shortness of breath, albuterol nebs q.4 hours p.r.n. shortness of breath, Brovana nebs b.i.d., aspirin 81 mg daily, Pulmicort 0.5/2 mL nebs b.i.d., clonidine 0.2 mg 1 pill at bedtime, guaifenesin 600 mg 1 p.o. b.i.d., hydrochlorothiazide 25 mg 1 pill daily, magnesium oxide 400 mg 1 pill at bedtime, metformin 850 mg 1 pill daily (this dose may have been reduced to half a pill daily right prior to admission to the hospital). We will need to clarify at the time of hospital followup. Nifedipine 60 mg 1 pill at bedtime, ramipril 10 mg 1 pill at bedtime, Onglyza 5 mg 1 pill at bedtime, simvastatin 10 mg 1 pill at bedtime. To note, the patient had received a 10-day course of piperacillin/tazobactam 3.375 g q.8 hours IV. She received Diflucan 100 mg daily for thrush. This was stopped at the time of discharge. The patient did not require potassium supplementation while being hospitalized. She also had been covered with Lovenox while she was hospitalized and on swing bed, but this was discontinued at the time of discharge. The patient will receive outpatient physical therapy for continued strengthening. She does not want home health other than she receives her home IV infusions of her alpha-1 antitrypsin medication. I do anticipate the patient to continue to decline with her current respiratory problems over time as her COPD is severe and to note, her oxygen requirements at the time of discharge are 4 L of oxygen both at rest and with activity. The patient will follow up to see me in a week's time in the clinic. GM08/09/2018 16:59:25 MODL: 08/10/2018 00:26:36 /[id number]
[2018-08-10] MEDS: Piperacillin/Tazobactam 3.375 GM in Sodium Chloride 0.9% 100 ML IV SCH ×2 (02:08→11:22)
[2018-08-10] MEDS: Albuterol/Ipratropium 3.0-0.5 MG/3 ML Neb Soln NEB SCH ×2 (02:10→07:07)
[2018-08-10 06:13] VITALS: BP 118/63
[2018-08-10] MEDS: Arformoterol 15 MCG/2 ML Neb Soln NEB SCH (07:07)
[2018-08-10] MEDS: Budesonide 0.5 MG/2 ML Neb Susp NEB SCH (07:07)
[2018-08-10] MEDS ORDERED: predniSONE 20 MG Tab PO SCH (08:00)
[2018-08-10] MEDS: guaiFENesin 600 MG Tab.ER PO SCH (09:16)
[2018-08-10] MEDS: Fluconazole 100 MG Tab PO SCH (09:16)
[2018-08-10] MEDS: Hydrochlorothiazide 25 MG Tab PO SCH (09:16)
[2018-08-10] MEDS: Magnesium Oxide 400 MG Tab PO SCH (10:02)
[2018-08-10] MEDS: Enoxaparin 40 MG/0.4 ML Syringe SUBCUT SCH (10:02)
[2018-08-10] MEDS: Lactobacillus Rhamnosus GG (Probiotic) Cap PO SCH (11:21)
== END 2018-08-10 14:00 | disposition home or self-care (01) | DRG 178 ==
LOC: VM.MS 11:31
PROVIDERS: ADMIT Family Medicine; ATTEND Family Medicine
DX: J15.1 Pneumonia due to Pseudomonas (principal); J44.1 Chronic obstructive pulmonary disease with (acute) exacerbation; E87.2 Acidosis; E11.9 Type 2 diabetes mellitus without complications; E86.0 Dehydration; I50.9 Heart failure, unspecified; R09.02 Hypoxemia; I11.0 Hypertensive heart disease with heart failure; B37.9 Candidiasis, unspecified
CPT/HCPCS: 36415; 71046; 80053; 82962; 83735; 85025; 86140; 94640; 94760; 97110-GP; 97116-GP; A4217; A9270-GY; J1650; J1815-GY; J2543; J7050; J7620-GY